=== PATIENT | male | born 1990 | race Caucasian/White ===

== ENCOUNTER 2016-07-02 21:12 | Inpatient (IN) | payer OTHER ==
[2016-07-02] MEDS ORDERED: ADENOSINE 6 MG/2 ML VIAL ONE ×2 (21:29→21:52)
--- NOTE | 2016-07-02 21:31 | EDPHY ---
H & P Time Seen by Provider: 07/02/16 21:29 HPI/ROS: CHIEF COMPLAINT: Palpitations, vomiting HISTORY OF PRESENT ILLNESS: Patient is a 25-year-old man who states that he began feeling nauseous and vomiting yesterday and then began having palpitations today. He states that he has vomited several times. He denies chest pain or shortness of breath. He is mildly diaphoretic. He has never had these symptoms before. He denies abdominal pain or diarrhea. He does admit to being an alcoholic but states that he quit about 2 weeks ago except for a few drinks he had on Saturday. REVIEW OF SYSTEMS: Constitutional: denies: chills, fever, recent illness, recent injury EENTM: denies: blurred vision, double vision, nose congestion Respiratory: denies: cough, shortness of breath Cardiac: See HPI Gastrointestinal/Abdominal: See HPI Genitourinary: denies: dysuria, frequency, hematuria, pain Musculoskeletal: denies: joint pain, muscle pain Skin: denies: lesions, rash, jaundice, bruising Neurological: denies: headache, numbness, paresthesia, tingling, dizziness, weakness Hematologic/Lymphatic: denies: blood clots, easy bleeding, easy bruising Immunologic/allergic: denies: HIV/AIDS, transplant EXAM: GENERAL: Anxious, mildly diaphoretic. HEAD: Atraumatic, normocephalic. EYES: Pupils equal round and reactive to light, extraocular movements intact, sclera anicteric, conjunctiva are normal. ENT: TMs normal, nares patent, oropharynx clear without exudates. Moist mucous membranes. NECK: Normal range of motion, supple without lymphadenopathy or JVD. LUNGS: Breath sounds clear to auscultation bilaterally and equal. No wheezes rales or rhonchi. HEART: Tachycardic rate of 230 ABDOMEN: Soft, nontender, normoactive bowel sounds. No guarding, no rebound. No masses appreciated. BACK: No CVA tenderness, no spinal tenderness, step-offs or deformities EXTREMITIES: Normal range of motion, no pitting or edema. No clubbing or cyanosis. NEUROLOGICAL: Cranial nerves II through XII grossly intact. Normal speech, normal gait. 5/5 strength, normal movement in all extremities, normal sensation PSYCH: Normal mood, normal affect. SKIN: Diaphoretic Source: Patient Exam Limitations: No limitations - Personal History Tetanus Vaccine Date: < 10 years - Medical/Surgical History Hx Asthma: No Hx Chronic Respiratory Disease: No Hx Diabetes: No Hx Cardiac Disease: No Hx Renal Disease: No Hx Cirrhosis: No Hx Alcoholism: No Hx HIV/AIDS: No Hx Splenectomy or Spleen Trauma: No Other PMH: Alcoholic, anxiety, bipolar - Family History Significant Family History: No pertinent family hx - Social History Smoking Status: Never smoked Alcohol Use: Sober Drug Use: None Constitutional: Initial Vital Signs Heart Rate 220 H 07/02/16 21:33 Respiratory Rate 24 H 07/02/16 21:33 Blood Pressure 138/72 H 07/02/16 21:33 O2 Sat (%) 95 07/02/16 21:33 O2 Delivery Mode Nasal Cannula O2 (L/minute) 2 Allergies/Adverse Reactions: No Known Allergies Allergy (Verified 07/02/16 23:00) Home Medications: Medication Instructions Recorded NK [No Known Home Meds] 07/02/16 Medical Decision Making - Diagnostics EKG Interpretation: An EKG obtained and was read and documented in trace view. Please see trace view for full reading and report. SVT An EKG obtained and was read and documented in trace view. Please see trace view for full reading and report. SVT converting to sinus rhythm An EKG obtained and was read and documented in trace view. Please see trace view for full reading and report. Sinus tachycardia rate of 161 no acute ischemic change An EKG obtained and was read and documented in trace view. Please see trace view for full reading and report. Ventricular tachycardia An EKG obtained and was read and documented in trace view. Please see trace view for full reading and report. Atrial fibrillation with a rate of 180 An EKG obtained and was read and documented in trace view. Please see trace view for full reading and report. Atrial fibrillation with a rate of 203 An EKG obtained and was read and documented in trace view. Please see trace view for full reading and report. Atrial flutter with a 2-1 block, rate of 150 An EKG obtained and was read and documented in trace view. Please see trace view for full reading and report. Sinus tachycardia with a rate of 140 ED Course/Re-evaluation: Patient initially presented diaphoretic and SVT with stable vital signs. He was given 6 of adenosine and converted into sinus rhythm with a rate of 130. This lasted for about 2 minutes until his rate gradually increased with sinus tachycardia. He then had about 10 seconds of wide complex ventricular tachycardia with stable vital signs and no change in mental status. We began to prepare amiodarone and placed a 2nd IV and fluid bolus. However by the time the it amiodarone was ready it was not given because he converted back to a narrow complex rhythm. He was in what appeared to be SVT versus atrial fibrillation with an RVR 180. Another dose of adenosine was given without success. He was then given a dose of diltiazem 10 mg which slowed his heart rate down to 160. He was given another dose of 10 mg diltiazem which slowed his heart rate down to 150 where he appears to be in a stable 2 to 1 a flutter pattern. He was then started on a diltiazem drip. I spoke with Dr. Kenneth Dowell who recommends a larger dose of diltiazem 17 mg for the boluses. I ended up giving him another 10 mg dose in addition to the drip that he currently is receiving. He suggested that if this is not sufficient to start him on metoprolol. Spoke with Dr. Argenis Lopez who agreed to admit to the PCU. Patient has also received total of 6 mg of Ativan. Differential Diagnosis: Partial list of the Differential diagnosis considered include but were not limited to; alcohol withdrawal, substance abuse, benzodiazepine withdrawal, stimulant use, atrial fibrillation, SVT, V-tach and although unlikely based on the history and physical exam, I also considered acute coronary disease, PE, gastroenteritis. Other Provider: Critical care time spent by me, Dr. Trevino exclusive with this patient was 45 minutes, exclusive of the PA time exclusive of procedures. The organ system that was at risk was cardiovascular and I gave IV fluids, critical medications, consultation and admission to prevent worsening of the patient's condition - Data Points Laboratory Results: Laboratory Results 07/02/16 21:52 07/02/16 21:52 Medications Given: Discontinued Medications Adenosine (Adenosine) 6 mg IVP EDNOW ONE Stop: 07/02/16 21:43 Last Admin: 07/02/16 21:42 Dose: 6 mg Adenosine (Adenosine) 12 mg IVP EDNOW ONE Stop: 07/02/16 22:18 Last Admin: 07/02/16 21:54 Dose: 12 mg Adenosine (Adenosine) 6 mg IVP EDNOW ONE Stop: 07/02/16 22:18 Last Admin: 07/02/16 21:50 Dose: 6 mg Dextrose (Dextrose 50% Syringe) 25 gm IVP PRN ONE Stop: 07/02/16 22:43 Last Admin: 07/02/16 22:49 Dose: 25 gm Diltiazem HCl (Cardizem 25 Mg/5 Ml Vial) 10 mg IVP EDNOW ONE Stop: 07/02/16 22:18 Last Admin: 07/02/16 22:00 Dose: 10 mg Diltiazem HCl 125 mg/ Dextrose 125 mls @ 0 mls/hr IV EDNOW ONE; As Directed PRN Reason: Protocol Stop: 07/02/16 22:18 Last Admin: 07/02/16 22:30 Dose: 125 mls Sodium Chloride (Ns) 1,000 mls @ 0 mls/hr IV ONCE ONE PRN Reason: Wide Open Stop: 07/02/16 22:18 Last Admin: 07/02/16 22:09 Dose: 1,000 mls Sodium Chloride (Ns) 1,000 mls @ 0 mls/hr IV ONCE ONE PRN Reason: Wide Open Stop: 07/02/16 21:56 Last Admin: 07/02/16 21:55 Dose: 1,000 mls Sodium Chloride (Ns) 1,000 mls @ 0 mls/hr IV ONCE ONE PRN Reason: Wide Open Stop: 07/02/16 21:41 Last Admin: 07/02/16 21:40 Dose: 1,000 mls Magnesium Sulfate (Magnesium Sulf 2 Gm (Premix)) 50 mls @ 50 mls/hr IV ONCE ONE Stop: 07/03/16 01:06 Last Admin: 07/03/16 00:47 Dose: 50 mls Magnesium Sulfate (Magnesium Sulf 2 Gm (Premix)) 50 mls @ 50 mls/hr IV ONCE ONE Stop: 07/03/16 01:06 Last Admin: 07/03/16 01:07 Dose: 50 mls Lorazepam (Ativan Injection) 2 mg IVP EDNOW ONE Stop: 07/02/16 21:44 Last Admin: 07/02/16 22:02 Dose: 2 mg Lorazepam (Ativan Injection) 2 mg IVP EDNOW ONE Stop: 07/02/16 22:48 Last Admin: 07/02/16 22:46 Dose: 2 mg Ondansetron HCl (Zofran) 8 mg IVP EDNOW ONE Stop: 07/02/16 21:44 Last Admin: 07/02/16 21:45 Dose: 8 mg Departure - Departure Disposition: [facility] Acute Clinical Impression: Atrial fibrillation and flutter, V tach Alcohol withdrawal Qualifiers: Complication of substance-induced condition: uncomplicated Qualified Code(s): F10.230 - Alcohol dependence with withdrawal, uncomplicated Condition: Critical
[2016-07-02] MEDS ORDERED: LORazepam 2 MG/ML INJ ONE (21:40)
[2016-07-02] MEDS ORDERED: NS 1,000 ML IV ONE ×3 (21:40→22:17)
[2016-07-02] MEDS ORDERED: ONDANSETRON 4 MG/2 ML VIAL ONE (21:41)
[2016-07-02] MEDS ORDERED: ADENOSINE 6 MG/2 ML VIAL IVP ONE ×2 (21:42→22:17)
[2016-07-02] MEDS ORDERED: LORazepam 2 MG/ML INJ IVP ONE ×2 (21:43→22:47)
[2016-07-02] MEDS ORDERED: ONDANSETRON 4 MG/2 ML VIAL IVP ONE (21:43)
[2016-07-02] MEDS ORDERED: AMIODARONE HCL 150 MG/3 ML VIAL ONE (21:44)
[2016-07-02] MEDS: ADENOSINE 6 MG/2 ML VIAL IVP ONE ×2 (21:50→21:54)
[2016-07-02] MEDS ORDERED: DILTIAZEM 25 MG/5 ML VIAL IVP ONE ×3 (21:58→22:17)
[2016-07-02] MEDS ORDERED: DILTIAZEM 125 MG/25 ML VIAL IV ONE (22:06)
[2016-07-02] MEDS ORDERED: DILTIAZEM 125 MG in D5W 125 ML IV ONE (22:17)
[2016-07-02 22:23] LABS: % IMMATURE GRANULYOCYTES 0.5 % (0.0-1.1); ABSOLUTE IMMATURE GRANULOCYTES 0.07 10^3/uL (0.00-0.10); ADD DIFF? NO; ADD MORPH? NO; ADD SCAN? NO; ATYPICAL LYMPHOCYTE FLAG 0 (0-99); FRAGMENT RBC FLAG 0 (0-99); LEFT SHIFT FLG 0 (0-99); LIPEMIA HEMOLYSIS FLAG 90 (0-99); MEAN CELL HEMOGLOBIN 33.5 pg (27.9-34.1); MEAN CELL HEMOGLOBIN CONCENTR. 34.7 g/dL (32.4-36.7); MEAN CELL VOLUME 96.5 fL (81.5-99.8); MEAN PLATELET VOLUME 12.4 fL (8.7-11.7); PLATELET CLUMPS FLAG 10 (0-99); PLATELET COUNT 174 10^3/uL (150-400); RED BLOOD CELL COUNT 5.08 10^6/uL (4.40-6.38); RED CELL DISTRIBUTION WIDTH 14.3 % (11.5-15.2)
[2016-07-02 22:29] LABS: INR 1.01 (0.83-1.16)
[2016-07-02 22:30] LABS: APTT 25.9 SEC (23.0-38.0)
[2016-07-02 22:39] LABS: ANION GAP 36 mEq/L (8-16); CALCIUM 9.8 mg/dL (8.5-10.4); CARBON DIOXIDE 10 mEq/l (22-31); CHLORIDE 93 mEq/L (97-110); CREATININE 0.9 mg/dL (0.7-1.3); GLOMERULAR FILTRATION RATE > 60; GLUCOSE 61 mg/dL (70-100); POTASSIUM 4.6 mEq/L (3.5-5.2); SODIUM 139 mEq/L (134-144)
[2016-07-02] MEDS ORDERED: D50W 25 GM/50 ML SYR IVP ONE ×2 (22:42→22:47)
[2016-07-02 22:48] LABS: MAGNESIUM 1.1 mg/dL (1.6-2.3)
--- NOTE | 2016-07-02 23:06 | CPEKG ---
Heart Rate: 220 RR Interval: 273 QRSD Interval: 134 QT Interval: 247 QTC Interval: 473 P Upperco: 0 QRS Upperco: 129 T Wave Upperco: 3 EKG Severity - ABNORMAL ECG - EKG Impression: WIDE COMPLEX TACHYCARDIA EKG Impression: VENTRICULAR PREMATURE COMPLEX EKG Impression: RBBB AND LPFB Electronically Signed By: José Antonio Trevino 03-Jul-2016 14:05:41
[2016-07-02] MEDS ORDERED: MAGNESIUM SULF 2 GM/WATER 50 ML BAG IV ONE (23:58)
[2016-07-03] MEDS ORDERED: ONDANSETRON DISINTEGRATING 4 MG TAB PO PRN (00:06)
[2016-07-03] MEDS ORDERED: ONDANSETRON 4 MG/2 ML VIAL IVP PRN (00:06)
[2016-07-03] MEDS ORDERED: ACETAMINOPHEN 325 MG TAB PO PRN (00:06)
[2016-07-03] MEDS ORDERED: MAGNESIUM SULF 2 GM/WATER 50 ML IV ONE ×2 (00:07)
[2016-07-03] MEDS ORDERED: LORazepam 1 MG TAB PO PRN (00:08)
[2016-07-03] MEDS ORDERED: PROTOCOL K PHOSPHATE 1 DOSE IV PRN (00:34)
[2016-07-03] MEDS ORDERED: PROTOCOL MAGNESIUM 1 DOSE IV PRN (00:34)
[2016-07-03] MEDS ORDERED: PROTOCOL POTASSIUM 1 DOSE MISC PRN (00:34)
[2016-07-03] MEDS ORDERED: NS 1,000 ML IV SCH (00:45)
[2016-07-03] MEDS: CEPACOL LOZENGE PO PRN ×2 (01:06→05:54)
[2016-07-03] MEDS: LORazepam 2 MG/ML INJ IVP PRN ×2 (01:06→02:20)
[2016-07-03] MEDS: chlordiazePOXIDE 25 MG CAP PO PRN ×2 (01:06→05:17)
--- NOTE | 2016-07-03 01:24 | GHP ---
[f rep st] HISTORY AND PHYSICAL DATE OF ADMISSION: 07/02/2016 CHIEF COMPLAINT: SVT, alcohol withdrawal. HISTORY OF PRESENT ILLNESS: Patient is a 25-year-old male with significant alcohol history who began feeling nauseated and vomiting yesterday that persisted today along with palpitations. He has had several episodes of nonbloody emesis, dizziness, and mild shortness of breath. No chest or abdominal pain, or diarrhea. Complains of a sore throat starting tonight, which he attributes to retching. No F/C/S. He drinks approximately 700 mL of hard liquor every 2-3 days. He says his last drink was 2 weeks ago except for he had a couple drinks on Saturday. Denies any drugs. He has never had withdrawal or seizure before. When presented to urgent care clinic, was found to be in SVT with a heart rate in the 230s that broke with 6mg adenosine. Then 10 seconds of VT to atrial fibrillation in 180s. Dosed with diltiazem [address] Trevino discussed case with Cardiology and no antiarrhythmic at this time. REVIEW OF SYSTEMS: I completed a 10-point review of systems, negative except as noted in HPI. PAST MEDICAL HISTORY: Alcohol. He has been drinking since the age of 20. PAST SURGICAL HISTORY: None. FAMILY HISTORY: Alcoholism. MEDICATIONS: No medications. SOCIAL HISTORY: Lives in [place], is not in school and does not work. Drinks 700 mL of hard liquor every 2-3 days, last being 2 weeks ago. Occasional marijuana. No tobacco. ALLERGIES: No known drug allergies. PHYSICAL EXAMINATION: VITAL SIGNS: Temperature 100.8, blood pressure 137/67, heart rate in 120s, respirations 18, 97% on room air. GENERAL: mildly unkept, sitting up in bed, mildly tremulous, in no acute distress. HEENT: PERRLA. EOMI. Dry mucous membranes. Oropharynx with mild erythema. Tonsils: No exudate. CV: Tachy, regular. No murmurs, gallops, or rubs. LUNGS: Clear to auscultation bilaterally. ABDOMEN: Soft, nontender, nondistended. Positive bowel sounds. : No suprapubic or CVA tenderness. MUSCULOSKELETAL: Five out of 5 upper and lower extremity strength. SKIN: Warm, dry. NEURO: Two through 12 intact. Tremulousness. Positive tongue fasciculations. PSYCH: Alert and oriented x3. LABS: WBCs 14, hemoglobin 17, hematocrit 49, platelets 174. Coags within normal. Sodium 139, potassium 4.6, chloride 96, carbon dioxide 10. Anion gap is 36. Glucose is 61. Magnesium is 1.1. TSH is 1.6. Calcium 9.8. Phosphorus is pending. EKG personally reviewed by me. SVT, heart rate 220. ASSESSMENT AND PLAN: 1. Supraventricular tachycardia/atrial fibrillation: trigger likely alcohol withdrawal, dehydration and electrolyte abnormalities. Patient was dosed adenosine initially at urgent care. Continue diltiazem drip along with tx of withdrawal. IV fluids. Check Utox 2. Alcohol withdrawal: CIWA. Ativan and Librium. 3. Hypomagnesium: Aggressive repletion. Check phosphorus. 4. Anion gap metabolic acidosis: due to alcohol & starvation ketoacidosis. Check Utox, ASA, APAP, lactate. Treat aggressively with IV fluids. 5. Fever: Differential includes infection versus alcohol withdrawal. Does complain of a mild sore throat. Strep cx, UA, CXR and blood cxs 6. Alcohol dependence: started drinking at age 20. He has an extensive family history. He has tried quitting on his own in the past and wants help. Social work evaluate patient in the morning. 7. Leukocytosis: Suspect stress inflammation, but will evaluate with UAs, chest x-ray, and rapid strep. 8. Hypoglycemia: Secondary to emesis, dehydration, and poor oral intake. Repeating now will be p.r.n. D50. May have clears. 9. Diet: Clears. Advance as tolerated. 10. Deep venous thrombosis prophylaxis. Lovenox DISPOSITION: Patient warrants inpatient ICU admission given tachyarrhythmia, high risk. Also treating for alcohol withdrawal. Critical care time spent: 60 min spent bedside examining/interviewing patient and reviewing EKG, labs, counseling him on Etoh cessation. /[id number]/MODL MTDD
[2016-07-03] MEDS ORDERED: DILTIAZEM 125 MG in D5W 125 ML IV SCH (01:30)
[2016-07-03 01:53] LABS: COLOR YELLOW; LEUKOCYTE ESTERASE,URINE NEGATIVE (NEGATIVE); NITRITE,URINE NEGATIVE (NEGATIVE)
[2016-07-03 02:04] LABS: MUCUS TRACE /lpf (NONE-1+)
[2016-07-03 02:20] LABS: PHENCYCLIDINE URINE BCH < 6 ng/ml (NEGATIVE); PHENCYCLIDINE URINE BCH NEGATIVE (NEGATIVE)
[2016-07-03 02:30] LABS: TETRAHYDROCANNABINOL URINE 349 ng/mL (NEGATIVE)
[2016-07-03] MEDS ORDERED: THIAMINE HCL 100 MG TAB PO SCH (05:45)
[2016-07-03] MEDS ORDERED: MULTIVITAMINS 1 EACH TAB PO SCH ×2 (05:45→09:00)
[2016-07-03] MEDS ORDERED: FOLIC ACID 1 MG TAB PO SCH ×2 (05:45→09:00)
[2016-07-03 06:29] LABS: ALANINE AMINOTRANSFERASE 129 IU/L (21-72); ALBUMIN 3.9 g/dL (3.5-5.0); ALKALINE PHOSPHATASE 45 IU/L (38-126); ANION GAP 11 mEq/L (8-16); ASPARTATE AMINOTRANSFERASE 181 IU/L (17-59); BILIRUBIN,TOTAL 1.4 mg/dL (0.1-1.4); CALCIUM 8.1 mg/dL (8.5-10.4); CARBON DIOXIDE 23 mEq/l (22-31); CHLORIDE 102 mEq/L (97-110); CREATININE 0.7 mg/dL (0.7-1.3); GLOMERULAR FILTRATION RATE > 60; GLUCOSE 75 mg/dL (70-100); POTASSIUM 4.3 mEq/L (3.5-5.2); SALICYLATE < 1.0 mg/dL (2.0-20.0); SODIUM 136 mEq/L (134-144); TOTAL PROTEIN 6.1 g/dL (6.3-8.2)
[2016-07-03 06:35] LABS: % IMMATURE GRANULYOCYTES 0.3 % (0.0-1.1); ABSOLUTE IMMATURE GRANULOCYTES 0.03 10^3/uL (0.00-0.10); ADD DIFF? NO; ADD MORPH? NO; ADD SCAN? NO; ATYPICAL LYMPHOCYTE FLAG 0 (0-99); FRAGMENT RBC FLAG 0 (0-99); HEMATOCRIT 41.2 % (40.0-51.0); HEMOGLOBIN 14.3 g/dL (13.7-17.5); LEFT SHIFT FLG 0 (0-99); LIPEMIA HEMOLYSIS FLAG 90 (0-99); MEAN CELL HEMOGLOBIN 33.3 pg (27.9-34.1); MEAN CELL HEMOGLOBIN CONCENTR. 34.7 g/dL (32.4-36.7); MEAN CELL VOLUME 95.8 fL (81.5-99.8); MEAN PLATELET VOLUME 12.1 fL (8.7-11.7); PLATELET CLUMPS FLAG 0 (0-99); PLATELET COUNT 115 10^3/uL (150-400); RED CELL DISTRIBUTION WIDTH 14.4 % (11.5-15.2)
[2016-07-03 07:16] LABS: MAGNESIUM 2.3 mg/dL (1.6-2.3)
--- NOTE | 2016-07-03 08:49 | CPEKG ---
Heart Rate: 97 RR Interval: 619 P-R Interval: 160 QRSD Interval: 84 QT Interval: 332 QTC Interval: 422 P Gould: 65 QRS Gould: 85 T Wave Gould: 38 EKG Severity - NORMAL ECG - EKG Impression: SINUS RHYTHM EKG Impression: ST ELEV, PROBABLE NORMAL EARLY REPOL PATTERN EKG Impression: COMPARED WITH 07/02/2016 AT 10:30 P.M., HEART RATES LOWER Electronically Signed By: Keely Wu 03-Jul-2016 09:42:38
[2016-07-03] MEDS ORDERED: ENOXAPARIN 40 MG/0.4 ML SYR SC SCH (09:00)
[2016-07-03] MEDS ORDERED: PANTOPRAZOLE SODIUM 40 MG TAB PO SCH (09:00)
--- NOTE | 2016-07-03 10:32 | CPEKG ---
Heart Rate: 204 RR Interval: 294 P-R Interval: 156 QRSD Interval: 88 QT Interval: 268 QTC Interval: 494 P Wadley: 0 QRS Wadley: 116 T Wave Wadley: -26 EKG Severity - ABNORMAL ECG - EKG Impression: SUPRAVENTRICULAR TACHYCARDIA EKG Impression: RUN OF VENTRICULAR PREMATURE COMPLEXES EKG Impression: LEFT POSTERIOR FASCICULAR BLOCK EKG Impression: REPOLARIZATION ABNORMALITY, PROB RATE RELATED EKG Impression: TALL T WAVES, PROBABLY NORMAL VARIANT Electronically Signed By: José Antonio Trevino 03-Jul-2016 14:04:47
--- NOTE | 2016-07-03 12:03 | ECHO ---
[id number] + + [id number] : : [place] [address] : : [phone] + + Adult Echocardiographic Report + ----+ :Name: CARLOS HAY LStudy Date: 07/03/2016 09:45 AM BP: 130/70 mmHg : : Hospital Admission Number: [id number] Location: 240: :: 1990 Gender: Male Height: 73 in : :Age: 25 yrs Race: WH Weight: 175 lb : :Reason For Study: new afib : : BSA: 2.0 meters2 : :History: new afib : + ----+ MMode/2D Measurements \T\ Calculations IVSd: 0.71 cm RVDd: 2.7 cm FS: 29.0 % Ao root diam: LVPWd: 0.91 cm LVIDd: 4.9 cm EDV(Teich): 3.1 cm LVIDs: 3.4 cm 110.3 ml ESV(Teich): 48.9 ml EF(Teich): 55.7 % LVLd ap4: 10.0 cm SV(MOD-sp4): EDV(MOD-sp4): 97.0 ml 162.0 ml LVLs ap4: 8.0 cm ESV(MOD-sp4): 65.0 ml EF(MOD-sp4): 59.9 % Normal Measurement Values: + + :LVIDd (3.5-5.7cm) IVSd (0.6-1.1cm) LVPWd (0.6-1.1cm) Aortic Root (2.0-3.7cm)Left Atrium (1.5-4.0cm): :LV Vol(d) (76-115ml) LV Vol(s) (29-48ml) Ejec Fraction (50-65%)PV Kings (0.6- 1.2m/s) TV Kings (0.4-1.0m/s) : :MV E Kings (0.8-1.0m/s)MV A Kings (0.3-1.0m/s)LVOT Kings (0.7-1.2m/s) Asc Ao Kings ( 0.9-1.8m/s) : + + Doppler Measurements \T\ Calculations MV E max kings: Ao V2 max: LV V1 max: PA V2 max: 67.1 cm/sec 124.3 cm/sec 102.7 cm/sec 96.4 cm/sec MV A max kings: Ao max P.2 mmHgLV V1 max PG: PA max P.3 cm/sec 4.2 mmHg 3.7 mmHg MV E/A: 1.2 Left Ventricle The left ventricle is normal in size. There is normal left ventricular wall thickness. Ejection Fraction = 55%. Right Ventricle The right ventricle is normal in size and function. Atria The left atrial size is normal. Right atrial size is normal. Mitral Valve The mitral valve is normal in structure and function. There is no mitral valve stenosis. There is no mitral regurgitation noted. Tricuspid Valve The tricuspid valve is normal in structure and function. There is no tricuspid stenosis. There is trace tricuspid regurgitation. Aortic Valve The aortic valve is not well visualized. There is no aortic stenosis. There is no aortic insufficiency. Pulmonic Valve The pulmonic valve is normal in structure and function. Great Vessels The aortic root is normal size. Conclusion A two-dimensional transthoracic echocardiogram with M-mode and Doppler was performed. 1. The left ventricle is normal in size. There is normal left ventricular wall thickness. The Ejection Fraction = 55%. 2. The mitral valve is normal in structure and function. There is no mitral regurgitation noted. 3. The aortic valve is not well visualized. 4. There is no aortic stenosis. There is no aortic insufficiency. Final Reading Physician: Dell Mendoza MD electronically signed on 07/03/2016 12:01 PM Ordering Physician: Dell Goodman Performed By: Alina Antony
[2016-07-03 12:28] VITALS: BP 132/78; PULSE 100; RESP 24; TEMP 98.6; O2SAT 93
[2016-07-03] MEDS ORDERED: DILTIAZEM CD 120 MG CAP PO SCH (15:30)
--- NOTE | 2016-07-03 17:51 | GCON ---
[f rep st] CONSULTATION DATE OF CONSULTATION: 07/03/2016 CHIEF COMPLAINT: We have been asked by Dr. Mercado to evaluate this patient with a supraventricular tachycardia. HISTORY OF PRESENT ILLNESS: The patient is a 25-year-old gentleman with limited past medical histor y, who presented to the emergency department on 07/02/2016 with symptoms of palpitations in the sett ing of alcohol withdrawal. The patient was noted to have a wide-complex tachycardia suggestive of S VT with aberrancy. He was treated with adenosine, with conversion back to a normal sinus rhythm. H ana maria was started on diltiazem at that time and has maintained a normal sinus rhythm. We have been cons ulted to help in the further management of this patient. Patient does have a previous history of al cohol use/abuse. Patient would typically consume 700 mL of hard alcohol every 2-3 days. Approximat tanvir 2 weeks ago he decided to quit with the help of his girlfriend. He is planning on joining the [employer] and getting in better shape. On the day of admission, patient noted the onset of palpitations d escribed as a rapid beating of his heart. He denies symptoms of chest pain, syncope, or presyncope with the palpitations. Patient does report a previous history of palpitations; these are typically self limited. PAST MEDICAL HISTORY: 1. Alcohol use/abuse. 2. Palpitations. MEDICATIONS: None. ALLERGIES: No known drug allergies. SOCIAL HISTORY: Patient lives in [place]. He drinks approximately 700 mL of hard liquor every 2-3 days. He does smoke marijuana. He denies tobacco and illicit drug use. FAMILY HISTORY: Notable for alcohol use/abuse. REVIEW OF SYSTEMS: A 10-point review of systems is negative, except as noted in HPI. Patient does, however, report symptoms of nausea and vomiting during the days prior to admission. PHYSICAL EXAMINATION: GENERAL: Patient is resting in bed. He seems mildly agitated. VITALS: Tem perature is afebrile, pulse is 100, blood pressure 132/78, respiratory rate is 24, SaO2 is 93% on ro om air. HEENT: Normocephalic atraumatic. Extraocular muscles intact. NECK: No JVD. No bruits. LUNGS: Clear to auscultation bilaterally. CARDIOVASCULAR: Regular rate and rhythm. S1, S2. No murmurs, rubs, or gallops appreciated. ABDOMEN: Soft, nontender, with hyperactive bowel sounds. E XTREMITIES: No clubbing, cyanosis, or edema. SKIN: No evidence of rashes. NEURO: Awake, alert, and oriented x3. He is somewhat agitated with mild. LABORATORY: White blood cell count 9.62, hemoglobin 14.3, hematocrit 41.2, platelet count 115. Sod ium 136, potassium 4.3, chloride 102, BUN 9, creatinine 0.7. AST is elevated at 181, ALT is elevate d at 129. TSH 1.61. EKG #1 demonstrates a wide-complex tachycardia transitioning to a narrow complex tachycardia and end ing with a P wave and sinus rhythm. The EKG is suggestive of an SVT with aberrancy. EKG in normal sinus rhythm demonstrates no evidence of aberrant conduction. Echocardiogram demonstrates normal le ft ventricular size and systolic function with no significant valvular abnormalities. ASSESSMENT AND PLAN: This patient is a 25-year-old gentleman who presents with supraventricular tac hycardia in the setting of alcohol withdrawal. He has subsequently converted to a normal sinus rhyt hm following adenosine infusion. Patient does report a previous history of self-limited palpitation s but denies syncope or pre-syncope. At this time, would initiate therapy with diltiazem to slow hi s heart rate and reduce atrial ectopy and hopefully decrease the likelihood of recurrent supraventri cular tachycardia. Beta ajay could also be used; however, would avoid this given his current alc ohol withdrawal and potential masking of his withdrawal symptoms. Would have patient follow up with Dr. Gonzales as an outpatient to discuss potential for ablation. /[id number]/MODL
--- NOTE | 2016-07-03 18:40 | PDDCSUM ---
Discharge Summary Discharge Summary: DISCHARGE SUMMARY FOLLOW-UP ITEMS: Outpatient follow-up at [facility], consider outpatient event monitor DATE OF ADMISSION: 07/02/16 DATE OF DISCHARGE: 07/03/2016 DISCHARGE DIAGNOSES: 1. Acute supraventricular tachycardia 2. Acute atrial fibrillation 3. Acute alcohol withdrawal 4. Acute transaminitis 5. Acute metabolic lactic acidosis 6. Systemic inflammatory response syndrome CONSULTATIONS: Cardiology PROCEDURES / IMAGING: Echocardiogram demonstrating normal ejection fraction CHIEF COMPLAINT: Agitation, palpitations, tremulousness SUBJECTIVE: Patient reports he is feeling well at time of discharge and he is requesting that he be discharged home at this time PHYSICAL EXAM ON DISCHARGE: Systolic blood pressure is 120, heart rate 90, afebrile overnight, find tremulousness bilateral lower extremities, alert awake oriented x3, pupils mildly dilated, bowel sounds are present abdomen is soft nontender, no asterixis LABS ON DISCHARGE: Serum bicarbonate level 23, AST 180, ALT 130, alk-phos 45, total bilirubin 1.4, white blood cell count 9600, hemoglobin 14.3 HOSPITAL COURSE BY PROBLEM: 1. Acute supraventricular tachycardia. Patient presented with a heart rate of around 220 which was notably SVT on EKG and broke into a wide complex then narrow complex tachycardia after 6 mg of adenosine. It is suspected that his supraventricular tachycardia was secondary to acute alcohol withdrawal and the patient reports that he has previously experienced palpitations which may also have been symptomatic SVT. I suspect that these episodes of SVT are in the setting of alcohol withdrawal given the patient frequently experiences binges and then some withdrawal symptoms thereafter. He did not have any evidence of structural heart disease on echocardiogram and Dr. Mendoza recommended low-dose diltiazem as well as outpatient follow up with Dr. Gonzales. 2. Acute atrial fibrillation. Patient did go into an atrial fibrillation rhythm after he received adenosine and then he was placed on a diltiazem drip and admitted to the step-down unit. He chemically converted to a normal sinus mechanism and remained in sinus mechanism throughout the remainder of his stay. As noted above his echocardiogram did not demonstrate any structural abnormalities and he will remain on wang blocking agent until his follow up with Dr. Gonzales. He may have an event monitor placed at that time to determine whether he has any ongoing SVT or AFib burden. 3. Acute alcohol withdrawal. Is suspected that his acute alcohol withdrawal was the precipitating factor of the above. His withdrawal symptoms or evidenced by tremulousness, tachycardia, agitation and he was given a combination of Librium and Ativan with good effect. Although the patient continued to score on CIWA and Joshua indications for ongoing inpatient care, he is girlfriend requested discharge and he appears to be safe to do so with careful dosing of Librium at home. I recommended a 4th dose of 25 mg Librium this evening, then rapid taper with 3 doses tomorrow, 2 doses the day thereafter , 1 dose today thereafter, monitoring of dosing by his girlfriend. He should then follow up with his primary care provider for further guidance. He should remain sober from alcohol. He was seen by our socially responsible investment adviser prior to discharge and given contact information for [facility] so that he can address his underlying mental health issues which seemed to influence his drinking. 4. Acute transaminitis. Most likely secondary to alcohol use, should have outpatient liver panel drawn by primary care provider. 5. Acute metabolic acidosis. Secondary to lactic acid, peaked at 4.5, most likely secondary to hypo hypovolemia as well as starvation ketoacidosis. He received IV fluids and this resolved. 6. Systemic inflammatory response syndrome. Evidenced by tachycardia and leukocytosis without clear evidence of infection, this improved with IV fluids and control of his acute alcohol withdrawal syndrome as well as lactic acidosis which were most likely driving factors. DISCHARGE MEDICATIONS: Please see official discharge medication reconciliation sheet in chart , Librium 25 mg 3 times daily with taper, as-needed Phenergan at home, diltiazem continuous release 120 mg daily. DISCHARGE INSTRUCTIONS: Patient should follow up with his primary care provider in the short term, Dr. Gonzales next week. TIME SPENT: Greater than 30 minutes were spent on direct patient care, as well as discharge planning and preparation.
--- NOTE | 2016-07-06 08:17 | CPEKG ---
Heart Rate: 230 RR Interval: 261 P-R Interval: 120 QRSD Interval: 124 QT Interval: 248 QTC Interval: 485 P [place]: 264 QRS [place]: 76 T Wave [place]: 267 EKG Severity - ABNORMAL ECG - EKG Impression: WIDE COMPLEX TACHYCARDIA. CONSIDER VT VS ABERRATED SVT EKG Impression: COMPARED WITH 02 JUL 2016 AT 21:39, WCT NOW PRESENT Electronically Signed By: Keely Wu 06-Jul-2016 13:40:44
--- NOTE | 2016-07-06 08:22 | CPEKG ---
Heart Rate: 161 RR Interval: 373 P-R Interval: 72 QRSD Interval: 84 QT Interval: 260 QTC Interval: 426 P [place]: 0 QRS [place]: 116 T Wave [place]: -9 EKG Severity - ABNORMAL ECG - EKG Impression: SINUS TACHYCARDIA EKG Impression: LEFT POSTERIOR FASCICULAR BLOCK EKG Impression: INFERIOR Q WAVES, PROBABLY NORMAL VARIATION EKG Impression: ANTERIOR ST ELEVATION, PROBABLY DUE TO LVH EKG Impression: COMPARED WITH 02 JUL 2016 AT 21:38, SINUS TACHYCARDIA NOW PRESENT Electronically Signed By: Keely Wu 06-Jul-2016 13:43:09
--- NOTE | 2016-07-06 08:25 | CPEKG ---
Heart Rate: 143 RR Interval: 420 P-R Interval: 112 QRSD Interval: 84 QT Interval: 276 QTC Interval: 426 P [place]: 0 QRS [place]: 103 T Wave [place]: -2 EKG Severity - BORDERLINE ECG - EKG Impression: SINUS TACHYCARDIA EKG Impression: SMALL INFERIOR Q WAVES; S1, Q III, TIII PATTERN EKG Impression: BORDERLINE RIGHT AXIS DEVIATION EKG Impression: BORDERLINE ST ELEVATION, ANTERIOR LEADS EKG Impression: TALL T WAVES, CONSIDER ISCHEMIA OR METABOLIC ABNORMALITY EKG Impression: COMPARED WITH 02 JUL 2016 AT 22:04, NO SIGNIFICANT CHANGE Electronically Signed By: Keely Wu 06-Jul-2016 13:35:40
--- NOTE | 2016-07-06 08:26 | CPEKG ---
Heart Rate: 179 RR Interval: 335 QRSD Interval: 82 QT Interval: 256 QTC Interval: 442 QRS [place]: 96 T Wave [place]: -12 EKG Severity - ABNORMAL ECG - EKG Impression: ATRIAL FLUTTER, A-RATE 272 EKG Impression: VENTRICULAR PREMATURE COMPLEX EKG Impression: BORDERLINE RIGHT AXIS DEVIATION EKG Impression: NONSPECIFIC T ABNORMALITIES, INFERIOR LEADS EKG Impression: TALL T WAVES, CONSIDER ISCHEMIA OR METABOLIC ABNL EKG Impression: COMPARED WITH June AT 21:43, QRS NOW NARROW Electronically Signed By: Keely Wu 06-Jul-2016 13:39:14
--- NOTE | 2016-07-06 08:28 | CPEKG ---
Heart Rate: 203 RR Interval: 296 QRSD Interval: 82 QT Interval: 268 QTC Interval: 493 QRS [place]: 98 T Wave [place]: 10 EKG Severity - ABNORMAL ECG - EKG Impression: ATRIAL FIBRILLATION WITH RAPID V-RATE EKG Impression: BORDERLINE RIGHT AXIS DEVIATION EKG Impression: BORDERLINE T ABNORMALITIES, INFERIOR LEADS EKG Impression: TALL T WAVES, CONSIDER METABOLIC ABNORMALITY OR ISCHEMIA EKG Impression: NO SIG CHANGE COMPARED WITH 02 JUL 2016 AT 21:49 Electronically Signed By: Keely Wu 06-Jul-2016 13:38:02
--- NOTE | 2016-07-06 08:28 | CPEKG ---
Heart Rate: 150 RR Interval: 400 P-R Interval: 63 QRSD Interval: 82 QT Interval: 276 QTC Interval: 436 P [place]: 0 QRS [place]: 113 T Wave [place]: 20 EKG Severity - ABNORMAL ECG - EKG Impression: SINUS TACHYCARDIA EKG Impression: ATRIAL PREMATURE COMPLEX EKG Impression: LEFT POSTERIOR FASCICULAR BLOCK EKG Impression: INFERIOR Q WAVES, PROBABLY NORMAL VARIATION EKG Impression: ANTERIOR ST ELEVATION, ABNORMAL T WAVES EKG Impression: COMPARED WITH 02 JUL 2016 AT 21:51, SINUS TACHYCARDIA NOW PRESENT Electronically Signed By: Keely Wu 06-Jul-2016 13:37:01
[2016-07-06] MEDS ORDERED: THIAMINE HCL 100 MG TAB PO SCH (09:00)
== END 2016-07-03 15:47 | disposition home or self-care (01) | DRG 309 ==
LOC: CED 21:12 → CEDHOLD 22:36 → OBSVTOIN 22:36 → F2N 07-03 00:10
PROVIDERS: ADMIT Hospitalist; ATTEND Internal Medicine
DX: I47.1 Supraventricular tachycardia (principal); F10.239 Alcohol dependence with withdrawal, unspecified; I48.91 Unspecified atrial fibrillation; R74.0 Nonspecific elevation of levels of transaminase and lactic acid dehydrogenase [LDH]; E87.2 Acidosis
CPT/HCPCS: 80048-PO; 80053-PO; 80307; 82947-QW; 83735-PO; 84100-PO; 84443-PO; 85025-PO; 85610-PO; 85730-PO; 96365; 96366; G0480; J0153; J0282; J1650; J2060; J2405

== ENCOUNTER 2016-07-15 15:12 | Emergency (ER) | payer OTHER ==
[2016-07-15 15:16] VITALS: RESP 16
--- NOTE | 2016-07-15 15:26 | CPEKG ---
Heart Rate: 114 RR Interval: 526 P-R Interval: 120 QRSD Interval: 90 QT Interval: 324 QTC Interval: 447 P [place]: 0 QRS [place]: 91 T Wave [place]: 48 EKG Severity - BORDERLINE ECG - EKG Impression: SINUS TACHYCARDIA EKG Impression: VENTRICULAR PREMATURE COMPLEX EKG Impression: BORDERLINE RIGHT AXIS DEVIATION EKG Impression: INFERIOR Q WAVES, PROBABLY NORMAL VARIATION Electronically Signed By: Macario Douglass 15-Jul-2016 18:46:49
[2016-07-15] MEDS ORDERED: ONDANSETRON 4 MG/2 ML VIAL ONE (15:29)
[2016-07-15] MEDS ORDERED: ONDANSETRON 4 MG/2 ML VIAL IVP ONE (15:34)
[2016-07-15] MEDS ORDERED: NS 1,000 ML IV ONE (15:34)
[2016-07-15 15:38] LABS: % IMMATURE GRANULYOCYTES 0.9 % (0.0-1.1); ABSOLUTE IMMATURE GRANULOCYTES 0.09 10^3/uL (0.00-0.10); ADD DIFF? NO; ADD MORPH? NO; ADD SCAN? NO; ATYPICAL LYMPHOCYTE FLAG 0 (0-99); FRAGMENT RBC FLAG 0 (0-99); HEMATOCRIT 46.9 % (40.0-51.0); LEFT SHIFT FLG 10 (0-99); LIPEMIA HEMOLYSIS FLAG 90 (0-99); MEAN CELL HEMOGLOBIN 33.9 pg (27.9-34.1); MEAN CELL HEMOGLOBIN CONCENTR. 34.1 g/dL (32.4-36.7); MEAN CELL VOLUME 99.4 fL (81.5-99.8); MEAN PLATELET VOLUME 11.2 fL (8.7-11.7); PLATELET CLUMPS FLAG 0 (0-99); PLATELET COUNT 265 10^3/uL (150-400); RED BLOOD CELL COUNT 4.72 10^6/uL (4.40-6.38); RED CELL DISTRIBUTION WIDTH 14.6 % (11.5-15.2)
--- NOTE | 2016-07-15 15:43 | EDPHY ---
H & P Stated Complaint: HX of SVT sceduled ablation w/ dr gonzales Time Seen by Provider: 07/15/16 15:20 HPI/ROS: CHIEF COMPLAINT: Nausea vomiting heart racing HISTORY OF PRESENT ILLNESS: this is a 25-year-old male presenting to the emergency department complaining of nausea vomiting onset today with intermittent episodes of heart palpitations x3 days. patient was admitted here on 07/02 with alcohol withdraw and new onset SVT discharged with diltiazem, patient states he stopped taking the diltiazem due to rash and nausea with the medication he also spoke with surface grinder Dr. Gonzales he is aware the discontinuation of diltiazem. patient stated he did take 1 diltiazem this morning in attempts to decrease the heart palpitations not sure if this may have caused increase in nausea vomiting. patient also reports 3 days ago he was running around his girlfriend he did slip and fall landing on the dresser hitting his chest and since then he has had intermittent shortness of breath along with the heart palpitations. patient also reports last drink was 3 weeks ago when he was diagnosed with SVT. denies any other complaints REVIEW OF SYSTEMS: Constitutional: No fever, no chills. Eyes: No discharge. no blurred vision ENT: No sore throat. Cardiovascular: right upper rib chest pain. palpitations. Respiratory: No cough. shortness of breath. Gastrointestinal: No abdominal pain. nausea vomiting Genitourinary: No hematuria. Musculoskeletal: No back pain. Skin: No rashes. Neurological: No headache. Source: Patient, Family - Personal History Current Tetanus/Diphtheria Vaccine: Yes Current Tetanus Diphtheria and Acellular Pertussis (TDAP): Yes Tetanus Vaccine Date: < 10 years - Medical/Surgical History Hx Asthma: No Hx Chronic Respiratory Disease: No Hx Diabetes: No Hx Cardiac Disease: No Hx Renal Disease: No Hx Cirrhosis: No Hx Alcoholism: No Hx HIV/AIDS: No Hx Splenectomy or Spleen Trauma: No Other PMH: Alcoholic, anxiety, bipolar - Social History Smoking Status: Never smoked - Physical Exam Exam: General Appearance: Alert, no distress. Eyes: Pupils equal and round no pallor or injection. ENT, Mouth: Mucous membranes moist. Respiratory: There are no retractions, lungs are clear to auscultation. Cardiovascular: tachycardic Gastrointestinal: Abdomen is soft and nontender, no masses, bowel sounds normal. active vomiting Neurological: no focal deficits Skin: Pallor, diaphoretic Musculoskeletal: Neck is supple nontender. right upper anterior chest tenderness on palpation, no crepitus. ecchymosis noted Extremities: symmetrical, full range of motion. Psychiatric: Patient is oriented X 3, there is no agitation. Constitutional: Initial Vital Signs Temperature (C) 36.4 C 07/15/16 15:14 Heart Rate 110 H 07/15/16 15:14 Respiratory Rate 16 07/15/16 15:14 Blood Pressure 136/84 H 07/15/16 15:14 O2 Sat (%) 95 07/15/16 15:14 O2 Delivery Mode Room Air Allergies/Adverse Reactions: No Known Allergies Allergy (Verified 07/02/16 23:00) Home Medications: Medication Instructions Recorded Diltiazem Cd [Cardizem ER 120 MG 120 mg PO DAILY #30 cap 07/03/16 (*)] chlordiazePOXIDE [Librium 25 mg 25 mg PO TID #7 cap 07/03/16 (*)] Medical Decision Making - Diagnostics Imaging Results: Imaging Impressions Chest X-Ray 07/15/16 15:35 Impression: No source for right-sided chest pain identified. ED Course/Re-evaluation: discussed ED plan of care: CBC, BMP, troponin, EKG, chest x-ray, IV fluids normal saline bolus IV Zofran 1630: Re-evaluation---> patient feeling better no pallor heart rate 95, nonlabored respiratory effort no active vomiting denies any nausea, no chest pain or palpitations 1700: discharge home---> stable, discussed discharge instructions follow up with your primary care provider this week follow-up with Dr. Gonzales this week Differential Diagnosis: other differential diagnosis considered but not limited to SVT, rib Fracture, and pneumothorax - Data Points Laboratory Results: Laboratory Results 07/15/16 15:30 07/15/16 15:30 07/15/16 07/15/16 15:30 15:30 WBC 9.65 10^3/uL H 10^3/uL (3.80-9.50) RBC 4.72 10^6/uL 10^6/uL (4.40-6.38) Hgb 16.0 g/dL g/dL (13.7-17.5) Hct 46.9 % % (40.0-51.0) MCV 99.4 fL fL (81.5-99.8) MCH 33.9 pg pg (27.9-34.1) MCHC 34.1 g/dL g/dL (32.4-36.7) RDW 14.6 % % (11.5-15.2) Plt Count 265 10^3/uL 10^3/uL (150-400) MPV 11.2 fL fL (8.7-11.7) Neut % (Auto) 66.6 % % (39.3-74.2) Lymph % (Auto) 21.7 % % (15.0-45.0) Mitchell % (Auto) 8.2 % % (4.5-13.0) Eos % (Auto) 0.0 % L % (0.6-7.6) Baso % (Auto) 2.6 % H % (0.3-1.7) Nucleat RBC Rel Count 0.0 % % (0.0-0.2) Absolute Neuts (auto) 6.43 10^3/uL 10^3/uL (1.70-6.50) Absolute Lymphs (auto) 2.09 10^3/uL 10^3/uL (1.00-3.00) Absolute Monos (auto) 0.79 10^3/uL 10^3/uL (0.30-0.80) Absolute Eos (auto) 0.00 10^3/uL L 10^3/uL (0.03-0.40) Absolute Basos (auto) 0.25 10^3/uL H 10^3/uL (0.02-0.10) Absolute Nucleated RBC 0.00 10^3/uL 10^3/uL (0-0.01) Immature Gran % 0.9 % % (0.0-1.1) Immature Gran # 0.09 10^3/uL 10^3/uL (0.00-0.10) Sodium 141 mEq/L mEq/L (134-144) Potassium 3.9 mEq/L mEq/L (3.5-5.2) Chloride 102 mEq/L mEq/L (97-110) Carbon Dioxide 10 mEq/l L mEq/l (22-31) Anion Gap 29 mEq/L H mEq/L (8-16) BUN 10 mg/dL mg/dL (7-23) Creatinine 0.8 mg/dL mg/dL (0.7-1.3) Estimated GFR > 60 Glucose 57 mg/dL L mg/dL (70-100) Calcium 9.4 mg/dL mg/dL (8.5-10.4) Troponin I < 0.012 ng/mL ng/mL (0-0.034) Medications Given: Discontinued Medications Sodium Chloride (Ns) 1,000 mls @ 0 mls/hr IV ONCE ONE PRN Reason: Wide Open Stop: 07/15/16 15:35 Last Admin: 07/15/16 15:34 Dose: 1,000 mls Ondansetron HCl (Zofran) 4 mg IVP EDNOW ONE Stop: 07/15/16 15:35 Last Admin: 07/15/16 15:35 Dose: 4 mg Departure - Departure Disposition: Home, Routine, Self-Care Clinical Impression: Heart palpitations Nausea & vomiting Qualifiers: Vomiting type: unspecified Vomiting Intractability: non-intractable Qualified Code(s): R11.2 - Nausea with vomiting, unspecified Condition: Good Instructions: Acute Nausea and Vomiting (ED) Additional Instructions: Discussed discharge instructions 1. follow up with your primary care provider this week. I would also recommend following with Dr. Gonzales 2. increase fluid. Referrals: Joo Watson, [Primary Care Provider] - As per Instructions
[2016-07-15 15:47] LABS: ANION GAP 29 mEq/L (8-16); CALCIUM 9.4 mg/dL (8.5-10.4); CARBON DIOXIDE 10 mEq/l (22-31); CHLORIDE 102 mEq/L (97-110); CREATININE 0.8 mg/dL (0.7-1.3); GLOMERULAR FILTRATION RATE > 60; GLUCOSE 57 mg/dL (70-100); POTASSIUM 3.9 mEq/L (3.5-5.2); SODIUM 141 mEq/L (134-144)
[2016-07-15 15:59] LABS: TROPONIN I < 0.012 ng/mL (0-0.034)
[2016-07-15 16:51] VITALS: BP 142/68; PULSE 93; TEMP 98.1; O2SAT 96
== END 2016-07-15 17:12 | disposition home or self-care (01) ==
DX: R11.2 Nausea with vomiting, unspecified (principal); R00.2 Palpitations
CPT/HCPCS: 96374; J2405

== ENCOUNTER 2016-07-31 11:13 | Inpatient (IN) | payer OTHER ==
[2016-07-31] MEDS ORDERED: NS 1,000 ML IV ONE (11:56)
[2016-07-31] MEDS ORDERED: MIDAZOLAM 2 MG/2 ML VIAL IVP ONE (11:56)
--- NOTE | 2016-07-31 12:05 | CPEKG ---
Heart Rate: 88 RR Interval: 682 P-R Interval: 160 QRSD Interval: 90 QT Interval: 356 QTC Interval: 431 P [place]: 78 QRS [place]: 86 T Wave [place]: 60 EKG Severity - NORMAL ECG - EKG Impression: SINUS RHYTHM Electronically Signed By: Ralf Gonzales 31-Jul-2016 15:51:30
[2016-07-31] MEDS ORDERED: HEPARIN 10,000 UNIT/10 ML MDV ONE (12:10)
[2016-07-31] MEDS ORDERED: BUPIVACAINE 0.5% 30 ML SDV ONE (12:10)
[2016-07-31] MEDS ORDERED: LIDOCAINE 1% 300 MG/30 ML SDV ONE (12:10)
[2016-07-31] MEDS ORDERED: ISOPROTERENOL HCL 0.2 MG/ML 5ML AMP ONE (12:10)
[2016-07-31] MEDS ORDERED: MIDAZOLAM 2 MG/2 ML VIAL ONE (12:15)
[2016-07-31 12:29] LABS: % IMMATURE GRANULYOCYTES 0.6 % (0.0-1.1); ABSOLUTE IMMATURE GRANULOCYTES 0.03 10^3/uL (0.00-0.10); ADD DIFF? NO; ADD MORPH? NO; ADD SCAN? NO; ATYPICAL LYMPHOCYTE FLAG 20 (0-99); FRAGMENT RBC FLAG 0 (0-99); HEMATOCRIT 47.5 % (40.0-51.0); HEMOGLOBIN 16.8 g/dL (13.7-17.5); LEFT SHIFT FLG 0 (0-99); LIPEMIA HEMOLYSIS FLAG 90 (0-99); MEAN CELL HEMOGLOBIN 34.6 pg (27.9-34.1); MEAN CELL HEMOGLOBIN CONCENTR. 35.4 g/dL (32.4-36.7); MEAN CELL VOLUME 97.9 fL (81.5-99.8); MEAN PLATELET VOLUME 11.5 fL (8.7-11.7); PLATELET CLUMPS FLAG 0 (0-99); PLATELET COUNT 205 10^3/uL (150-400); RED BLOOD CELL COUNT 4.85 10^6/uL (4.40-6.38); RED CELL DISTRIBUTION WIDTH 15.3 % (11.5-15.2)
[2016-07-31 12:45] LABS: APTT 27.1 SEC (23.0-38.0); INR 0.98 (0.83-1.16); PROTIME(PATIENT) 12.9 SEC (12.0-15.0)
[2016-07-31] MEDS ORDERED: fentaNYL 250 MCG/5 ML INJ ONE (12:46)
[2016-07-31] MEDS ORDERED: PROPOFOL 200 MG/20 ML VIAL ONE ×2 (12:46→13:10)
[2016-07-31] MEDS ORDERED: LIDOCAINE 2% JELLY 5 ML TUBE ONE (12:47)
[2016-07-31] MEDS ORDERED: DEXAMETHASONE 4 MG/ML VIAL ONE ×2 (12:47)
[2016-07-31] MEDS ORDERED: ONDANSETRON 4 MG/2 ML VIAL ONE (12:47)
[2016-07-31 12:54] LABS: ANION GAP 20 mEq/L (8-16); CALCIUM 9.7 mg/dL (8.5-10.4); CARBON DIOXIDE 22 mEq/l (22-31); CHLORIDE 103 mEq/L (97-110); CREATININE 0.7 mg/dL (0.7-1.3); GLOMERULAR FILTRATION RATE > 60; GLUCOSE 79 mg/dL (70-100); MAGNESIUM 1.4 mg/dL (1.6-2.3); POTASSIUM 4.4 mEq/L (3.5-5.2); SODIUM 145 mEq/L (134-144)
[2016-07-31] MEDS ORDERED: ROCURONIUM 50 MG/5 ML VIAL ONE (14:35)
[2016-07-31] MEDS ORDERED: fentaNYL 100 MCG/2 ML INJ ONE (15:01)
[2016-07-31] MEDS ORDERED: ACETAMINOPHEN 325 MG TAB PO PRN (16:25)
[2016-07-31] MEDS ORDERED: OXYCODONE/APAP 5/325 TAB PO PRN (16:25)
--- NOTE | 2016-07-31 16:25 | EPPROC ---
Electrophysiology Procedure Note: ELECTROPHYSIOLOGIC STUDY AND CATHETER MEDIATED ABLATION OF SLOW AV MACARIO PATHWAY AND CONCEALED POSTEROSEPTAL ACCESSORY PATHWAY PROCEDURES PERFORMED: 86664-90 EP evaluation with RA/RV/LA pace/record, with arrhythmia induction 38188-98 EP evaluation with RA/RV pace record, insert/reposition catheter, with arrhythmia induction 23543 Intracardiac catheter ablation, SVT arrhythmogenic focus Second arrhythmia 24821 3D mapping Fluoroscopy INDICATION: PROCEDURE: Catheters & Anesthesia: The patient arrived in the Electrophysiology Laboratory in the fasting state. The right clavicular region, right groin, and left groin area were prepped and draped in the usual sterile manner. Anesthesiologist Dr. Odonnell administered general anesthesia. Appropriate non-invasive blood pressure, pulse oximetry and end-tidal CO2 monitoring was established. All catheters were placed percutaneously using the modified Seldinger technique , and advanced into position under fluoroscopic guidance. One #6 [place] hexapolar non-deflectable electrode catheter was inserted into the right atrial appendage via the left femoral vein (2mm spacing; except the proximal ring which was 25cm from the tip used for unipolar recordings). One #7 [place] deflectable octapolar electrode catheter was advanced to the His-bundle position via the left femoral vein (2mm spacing). One #7 [place] deflectable quadrapolar catheter was advanced to the anteroseptal right ventricle via the right femoral vein. One #7 [place] deflectable catheter with 10 pairs of electrodes was placed via the right femoral vein into the coronary sinus. Heparin was given to keep ACT > 200 s. Atrial fibrillation occured x 3, 1 sustained episode required cardioversion. Programmed stimulation was performed from the right atrium, right ventricle and coronary sinus (left atrium). Parahisian pacing demonstrated 2 patterns of activation c.w. right posteroseptal accessory pathway. 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 SVT (upto 5 beats) started with long AH interval. VA interval was 15 ms. During decremental atrial pacing, antegrade conduction over slow AV macario pathway was seen. Since the patient has had sustained adenosine dependent SVT, we decided to ablate both the posteroseptal accessory pathway and slow AV macario pathway. Ablation of posteroseptal accessory pathway was done during V pacing. D curve 4 mm catheter and SL2 sheath were used. 3D mapping was done. Earliest activation was seen at the roof of the proximal CS, 1 cm from ostium. RF application at this site terminated retrograde conduction over AP. Parahisian pacing post ablation showed all retrograde conduction over AV node. Attention was now directed to ablating slow AV macario pathway. RF applications were delivered to the region between the tricuspid annulus and the coronary sinus ostium, at the level of the upper edge of the coronary sinus ostium. Radiofrequency applications were also delivered along the roof of the proximal coronary sinus. Junctional rhythm occurred during all of the RF applications. Programmed stimulation was continued post ablation at baseline and during graded doses of isoproterenol upto 4-20mcg/min. Sustained AVNRT was not inducible. There were no echo beats. The catheters were removed. The long sheath was changed to a short 9 Fr sheath. The patient was transferred to the cardiovascular holding area in stable condition. Vascular access sheaths were removed in the holding area. There were no apparent complications. Results: A. Spontaneous Intervals: Pre ablation SCL 890 ms AH 55 ms HV 40 ms Post ablation SCL 670 ms AH 50 ms HV 40 ms B. Antegrade AV macario function (decremental pacing) Pre ablation FPERP 350 ms SPERP 340 ms WBB CL 330 ms Post ablation FPERP 310 ms WBB CL 300 ms C. Retrograde AV macario function (decremental pacing) Pre ablation - accessory pathway FPERP 370 ms WBB CL 360 ms Post ablation FPERP 370 ms WBB CL 360 ms D. Arrhythmias: Nonsustained AVNRT CONCLUSIONS 1. Typical (slow/fast) AVNRT. 2. Successful ablation of the slow AV macario pathway with elimination of 1:1 antegrade conduction over the slow AV macario pathway, all retrograde conduction over the slow AV macario pathway and the inducibility of AVNRT. 3. Successful ablation of concealed posteroseptal accessory pathway. 4. No complications. Patient Problems: Problems Problem Status Onset Atrial fibrillation and flutter Acute Alcohol withdrawal Acute V tach Acute
[2016-07-31 17:34] LABS: ANION GAP 19 mEq/L (8-16); CALCIUM 8.7 mg/dL (8.5-10.4); CARBON DIOXIDE 18 mEq/l (22-31); CHLORIDE 105 mEq/L (97-110); GLOMERULAR FILTRATION RATE > 60; GLUCOSE 80 mg/dL (70-100); MAGNESIUM 1.1 mg/dL (1.6-2.3); SODIUM 142 mEq/L (134-144)
--- NOTE | 2016-07-31 17:58 | CPEKG ---
Heart Rate: 99 RR Interval: 606 P-R Interval: 168 QRSD Interval: 84 QT Interval: 344 QTC Interval: 442 P [place]: 71 QRS [place]: 89 T Wave [place]: 54 EKG Severity - OTHERWISE NORMAL ECG - EKG Impression: SINUS TACHYCARDIA EKG Impression: PAC Electronically Signed By: Ralf Gonzales 01-Aug-2016 11:59:24
[2016-07-31 20:01] LABS: ANION GAP 18 mEq/L (8-16); CALCIUM 8.9 mg/dL (8.5-10.4); CARBON DIOXIDE 18 mEq/l (22-31); CHLORIDE 100 mEq/L (97-110); CREATININE 0.8 mg/dL (0.7-1.3); GLOMERULAR FILTRATION RATE > 60; GLUCOSE 104 mg/dL (70-100); POTASSIUM 4.4 mEq/L (3.5-5.2); SODIUM 136 mEq/L (134-144)
[2016-07-31] MEDS: ONDANSETRON 4 MG/2 ML VIAL IVP PRN (20:13)
[2016-07-31] MEDS ORDERED: NS IV ONE (22:00)
[2016-07-31] MEDS ORDERED: MAGNESIUM SULFATE IV ONE (22:00)
[2016-07-31] MEDS ORDERED: LORazepam 1 MG TAB PO ONE (23:38)
[2016-07-31] MEDS ORDERED: LORazepam 1 MG TAB PO PRN (23:38)
[2016-08-01 05:51] LABS: % IMMATURE GRANULYOCYTES 0.8 % (0.0-1.1); ABSOLUTE IMMATURE GRANULOCYTES 0.04 10^3/uL (0.00-0.10); ADD DIFF? NO; ADD MORPH? NO; ADD SCAN? NO; ATYPICAL LYMPHOCYTE FLAG 0 (0-99); FRAGMENT RBC FLAG 0 (0-99); HEMATOCRIT 41.9 % (40.0-51.0); HEMOGLOBIN 14.4 g/dL (13.7-17.5); LEFT SHIFT FLG 0 (0-99); LIPEMIA HEMOLYSIS FLAG 90 (0-99); MEAN CELL HEMOGLOBIN 34.1 pg (27.9-34.1); MEAN CELL HEMOGLOBIN CONCENTR. 34.4 g/dL (32.4-36.7); MEAN CELL VOLUME 99.3 fL (81.5-99.8); MEAN PLATELET VOLUME 12.5 fL (8.7-11.7); PLATELET CLUMPS FLAG 0 (0-99); PLATELET COUNT 147 10^3/uL (150-400); RED BLOOD CELL COUNT 4.22 10^6/uL (4.40-6.38); RED CELL DISTRIBUTION WIDTH 14.9 % (11.5-15.2)
[2016-08-01 06:08] LABS: INR 1.04 (0.83-1.16); PROTIME(PATIENT) 13.5 SEC (12.0-15.0)
[2016-08-01 06:16] LABS: ANION GAP 13 mEq/L (8-16); CALCIUM 8.5 mg/dL (8.5-10.4); CARBON DIOXIDE 24 mEq/l (22-31); CHLORIDE 98 mEq/L (97-110); CREATININE 0.7 mg/dL (0.7-1.3); GLOMERULAR FILTRATION RATE > 60; GLUCOSE 100 mg/dL (70-100); MAGNESIUM 1.5 mg/dL (1.6-2.3); POTASSIUM 4.4 mEq/L (3.5-5.2); SODIUM 135 mEq/L (134-144)
[2016-08-01 06:22] LABS: CREATINE KINASE-MB FRACTION 1.29 ng/mL (0-3.19); TROPONIN I 0.239 ng/mL (0-0.034)
[2016-08-01] MEDS: ONDANSETRON 4 MG/2 ML VIAL IVP PRN (08:22)
--- NOTE | 2016-08-01 08:40 | CPEKG ---
Heart Rate: 86 RR Interval: 698 P-R Interval: 148 QRSD Interval: 90 QT Interval: 376 QTC Interval: 450 P [place]: 67 QRS [place]: 87 T Wave [place]: 25 EKG Severity - NORMAL ECG - EKG Impression: SINUS RHYTHM Electronically Signed By: Ralf Gonzales 01-Aug-2016 11:59:11
--- NOTE | 2016-08-01 09:06 | ECHO ---
[id number] + + [address] : : [place] [id number] : : [phone] + + Adult Echocardiographic Report + ----+ :Name: CARLOS HAY LStudy Date: 08/01/2016 07:47 AM : : Hospital Admission Number: [id number] Location: 219: :: 1990 Gender: Male Height: 73 in : :Age: 25 yrs Race: WH Weight: 175 lb : :Reason For Study: F/U post EP study : : BSA: 2.0 meters2 : + ----+ MMode/2D Measurements \T\ Calculations IVSd: 0.90 cm LVIDd: 5.1 cm FS: 37.8 % Ao root diam: LVPWd: 0.90 cm LVIDs: 3.2 cm EDV(Teich): 3.4 cm 125.7 ml LA dimension: ESV(Teich): 3.5 cm 40.7 ml EF(Teich): 67.6 % LVLd ap4: 9.3 cm SV(MOD-sp4): EDV(MOD-sp4): 96.0 ml 133.0 ml LVLs ap4: 7.5 cm ESV(MOD-sp4): 37.0 ml EF(MOD-sp4): 72.2 % Normal Measurement Values: + + :LVIDd (3.5-5.7cm) IVSd (0.6-1.1cm) LVPWd (0.6-1.1cm) Aortic Root (2.0-3.7cm)Left Atrium (1.5-4.0cm): :LV Vol(d) (76-115ml) LV Vol(s) (29-48ml) Ejec Fraction (50-65%)PV Kings (0.6- 1.2m/s) TV Kings (0.4-1.0m/s) : :MV E Kings (0.8-1.0m/s)MV A Kings (0.3-1.0m/s)LVOT Kings (0.7-1.2m/s) Asc Ao Kings ( 0.9-1.8m/s) : + + Doppler Measurements \T\ Calculations MV E max kings: 68.6 cm/sec Ao V2 max: 112.7 cm/sec MV A max kings: 46.4 cm/sec Ao max P.1 mmHg MV E/A: 1.5 Left Ventricle The left ventricle is normal in size. There is normal left ventricular wall thickness. Left ventricular systolic function is normal. Ejection Fraction = 65-70%. No regional wall motion abnormalities noted. Right Ventricle The right ventricle is normal in size and function. Atria The left atrial size is normal. Right atrial size is normal. The interatrial septum is intact with no evidence for an atrial septal defect. Mitral Valve The mitral valve is normal in structure and function. There is no evidence of mitral valve prolapse. There is no mitral valve stenosis. There is trace mitral regurgitation. Tricuspid Valve Normal tricuspid valve. There is trace tricuspid regurgitation. Aortic Valve The aortic valve is trileaflet. The aortic valve opens well. There is no aortic stenosis. There is no aortic insufficiency. Pulmonic Valve The pulmonic valve is normal in structure and function. There is no pulmonic valvular regurgitation. Great Vessels The aortic root is normal size. Pericardium/Pleural There is no pericardial effusion. Conclusion A complete two-dimensional transthoracic echocardiogram was performed (2D, M-mode, Doppler and color flow Doppler). Left ventricular systolic function is normal. Ejection Fraction = 65-70%. There is trace mitral regurgitation. There is trace tricuspid regurgitation. There is no pericardial effusion. Final Reading Physician: Ralf Gonzales MD electronically signed on 08/01/2016 09:04 AM Ordering Physician: Ralf Gonzales Performed By: Florence Ac RDCS
[2016-08-01] MEDS ORDERED: chlordiazePOXIDE 25 MG CAP PO ONE (09:12)
[2016-08-01] MEDS ORDERED: LORazepam 2 MG/ML INJ IVP PRN (09:12)
[2016-08-01] MEDS ORDERED: chlordiazePOXIDE 25 MG CAP PO PRN (09:12)
[2016-08-01] MEDS: FAMOTIDINE 20 MG TAB PO SCH ×2 (09:23→21:10)
[2016-08-01] MEDS: ASPIRIN 81 MG CHEWABLE TAB PO SCH (09:23)
[2016-08-01] MEDS ORDERED: MAGNESIUM SULF 2 GM/WATER 50 ML IV ONE (09:26)
--- NOTE | 2016-08-01 09:44 | PDCARPN ---
Cardiology Progress Note Chief Complaint: nausea Assessment/Plan: Assessment: 1. 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 Groin sites without bleeding or hematoma. Echocardiogram demonstrates normal EF and no effusion. EKG demonstrates SR. Troponin elevated and WNL for post ablation. 2.Alcohol withdrawl. He reports last drink 3 days ago. Reports drinking 1 L of vodka daily. Has received valium and zofran. Mag is low and he received 2gm in 1 L NS during the night. He remains tremulous and diaphoretic. 3. Bipolar disorder Plan: 08/01/16 09:43 1. He was given post procedure instructions for no lifting over 10lbs or vigorous activity for 1 week. He should splint groin sites when coughing, sneezing or vomiting over next few days. Continue PAS while not mobile. He should take aspirin 81 mg daily for 6 weeks post ablation, unless contraindicated. He needs to f/u with Dr. Gonzales in 1 month. 2. He was transferred to medicine, Dr. Izquierdo, for management of alcohol withdrawl. 08/01/16 12:10 08/01/16 12:18 Subjective: Reports nausea, tremors. Denies chest pain, shortness of breath, palpitations or leg pain. Reviewed/Discussed With: other (Reviewed with Dr. Gonzales and Dr. Izquierdo) Objective: Vital Signs (8 Hrs) Temp Pulse Resp BP Pulse Ox 08/01/16 08:00 36.9 C 106 H 20 151/94 H 95 08/01/16 04:00 36.6 C 82 18 132/85 H 94 Intake/Output (24 Hrs) 07/31/16 08/01/16 08/02/16 05:59 05:59 05:59 Intake Total 1000 Output Total 900 Balance 100 Intake: Oral (ml) 400 IV Infused (ml) 600 Magnesium Sulfate 2 gm In 600 Ns 1,000 ml @ 83.667 mls /hr IV ONCE ONE Rx#: [id number] Output: Urine (ml) 900 Urinal 900 Other: Weight 77.1 kg Number of Voids Urinal 2 Result Diagrams: 08/01/16 04:45 08/01/16 04:45 Cardiac Labs: Cardiac Lab Results (72 Hrs) 08/01/16 04:45 CK-MB (CK-2) Fraction 1.29 Troponin I 0.239 H EKG: Sinus rhythm Telemetry: SR and ST - Physical Exam Constitutional: other (Diaphoretic, tremulous) Eyes: PERRL Cardiovascular: regular rate and rhythm, no murmurs, no rubs, no gallops, No systolic murmur, No diastolic murmur Peripheral Pulses: 2+: femoral (R), femoral (L), dorsalis-pedis (R), dorsalis- pedis (L) Respiratory: clear to auscultate bilat Gastrointestinal: normoactive bowel sounds Skin: warm Neurologic: AAOx3 Psychiatric: cooperative, anxious ICD10 Worksheet Patient Problems: Problems Problem Status Onset Alcohol withdrawal Acute Atrial fibrillation and flutter Acute V tach Acute
--- NOTE | 2016-08-01 10:09 | GHP ---
[f rep st] HISTORY AND PHYSICAL DATE OF ADMISSION: 07/31/2016 HISTORY OF PRESENT ILLNESS: The patient is a pleasant 25-year-old gentleman who was admitted to the hospital yesterday for an electrophysiology procedure for an ablation of SVT. This was successful and I refer the reader to Dr. Gonzales's electrophysiology note from yesterday. The patient does have a heavy alcohol history and overnight became agitated, tremulous and tachycard ic. He has been admitted here for alcohol withdrawal. When I speak with the patient, he is tremulous but alert and pleasant. He denies hallucinations or the feeling of bugs crawling on his skin. He says he last had alcohol maybe 3 days ago. He says he typically drinks enough to "get a buzz " every day. He has not had hematemesis or coffee-ground em esis, nor has he had melena. He has had evidence of transaminitis on admission here in June. At jabier t time, his bilirubin was normal. He denies a history of jaundice at home. He expresses a strong desire to quit drinking alcohol and a plan to go to . He has not had an alcohol withdrawal seizure. REVIEW OF SYSTEMS: Complete 10-point review of systems conducted and negative except as noted in th e HPI. PAST MEDICAL HISTORY: Alcoholism and supraventricular tachycardia. ALLERGIES: Diltiazem to which he gets a rash. HOME MEDICATIONS: None. SOCIAL HISTORY: Lives in [place]. He is currently not working. Does not smoke cigarettes. Al cohol as in the HPI. FAMILY HISTORY: Notable for alcoholism. PHYSICAL EXAM: VITAL SIGNS: At this point, temperature 37, blood pressure 151/94, pulse 106, breat keith 20 times a minute, 95% on room air. GENERAL: Tremulous but no acute distress. HEENT: Sclera e anicteric. Oropharynx clear. Mucous membranes moist. NECK: Supple without lymphadenopathy or J VD. LUNGS: Clear to auscultation bilaterally. HEART: S1, S2. Tachycardic without murmur. ABDOM EN: Soft, nontender, nondistended. LOWER EXTREMITIES: No edema. Calves nontender. SKIN: Withou t rash. NEUROLOGIC: Nonfocal. LABORATORY DATA: Sodium 135, potassium 4.4, chloride 98, bicarb 22, BUN 10, creatinine 0.7, calcium 8.5, phos 4.3, magnesium is 1.5 up from 1.0. Troponin is 0.239. White count 5, hematocrit 42, lalita telets are 147,000. Coags are normal this morning. EKG this morning, interpreted by me shows sinus at 86 with normal axis and intervals. There is a T-wave inversion in lead III. There are some sli ghtly peaked T-waves across the precordium. This is similar to an EKG obtained yesterday. An echoc ardiogram done this morning shows LV systolic function normal, EF of 65%-70%. Trace MR. Trace TR. No effusion. I discussed the case with Dr. Ralf Gonzales. ASSESSMENT/PLAN: A 25-year-old gentleman with supraventricular tachycardia admitted for ablation no w with alcohol withdrawal. 1. Alcohol withdrawal, acute. We will give him a loading dose of Librium 50 mg. He received benzo diazepines over night. We will place him on CIWA. I think the patient does have a desire to quit d rinking alcohol so giving him alcohol is not indicated. 2. Hypomagnesemia. I will give him 2 g of magnesium and follow daily. 3. Supraventricular tachycardia. He is status post ablation. We will follow on telemetry. 4. Elevated troponin. This is almost certainly secondary to EP procedure yesterday. I will discus s this with Dr. Gonzales. 5. Thrombocytopenia. This is mild. I suspect we will repeat it again tomorrow. Certainly with al cohol use, he is at risk for low platelets. 6. Prophylaxis. He is young so pharmacologic prophylaxis can be ambulation. DISPOSITION: Inpatient status. I have changed the attending from Dr. Ralf Gonzales to Milton Izquierdo. /[id number]/MODL
[2016-08-01] MEDS: chlordiazePOXIDE 25 MG CAP PO PRN ×3 (14:10→22:58)
[2016-08-01] MEDS ORDERED: TEMAZEPAM 15 MG CAP PO PRN (19:20)
[2016-08-02 04:53] LABS: HEMATOCRIT 42.6 % (40.0-51.0); HEMOGLOBIN 14.4 g/dL (13.7-17.5); MEAN CELL HEMOGLOBIN 34.1 pg (27.9-34.1); MEAN CELL HEMOGLOBIN CONCENTR. 33.8 g/dL (32.4-36.7); MEAN CELL VOLUME 100.9 fL (81.5-99.8); RED BLOOD CELL COUNT 4.22 10^6/uL (4.40-6.38); RED CELL DISTRIBUTION WIDTH 14.6 % (11.5-15.2)
[2016-08-02 04:57] LABS: ANION GAP 11 mEq/L (8-16); CALCIUM 8.8 mg/dL (8.5-10.4); CARBON DIOXIDE 24 mEq/l (22-31); CHLORIDE 101 mEq/L (97-110); CREATININE 0.7 mg/dL (0.7-1.3); GLOMERULAR FILTRATION RATE > 60; GLUCOSE 79 mg/dL (70-100); POTASSIUM 3.7 mEq/L (3.5-5.2); SODIUM 136 mEq/L (134-144)
[2016-08-02 05:09] VITALS: RESP 16
[2016-08-02] MEDS: chlordiazePOXIDE 25 MG CAP PO PRN (05:15)
[2016-08-02 08:34] VITALS: BP 136/90; PULSE 82; TEMP 97.8; O2SAT 96
[2016-08-02] MEDS: ASPIRIN 81 MG CHEWABLE TAB PO SCH (08:55)
[2016-08-02] MEDS: FAMOTIDINE 20 MG TAB PO SCH (08:56)
--- NOTE | 2016-08-02 09:11 | HOSPPROG ---
Hospitalist Progress Note Assessment/Plan: 25 yo M w alcoholism, SVT s/p ablation. post procedure course c/b alcohol withdrawal withdrawal: improved home today > 30 minutes on dc see dc summary Subjective: no svt on tele. feels much better Objective: Vital Signs Temp Pulse Resp BP Pulse Ox 36.6 C 82 16 136/90 H 96 08/02/16 08:00 08/02/16 08:00 08/02/16 08:00 08/02/16 08:00 08/02/16 08:00 Laboratory Results 08/02/16 03:58 08/02/16 03:58 08/01/16 08/02/16 08/03/16 05:59 05:59 05:59 Intake Total 1000 2292 Output Total 900 1600 Balance 100 692 PT 13.5 SEC (12.0-15.0) 08/01/16 04:45 INR 1.04 (0.83-1.16) 08/01/16 04:45 - Physical Exam Constitutional: no apparent distress, appears nourished Eyes: PERRL, anicteric sclera Ears, Nose, Mouth, Throat: moist mucous membranes, hearing normal Cardiovascular: regular rate and rhythym, no murmur, rub, or gallop Respiratory: no respiratory distress, no rales or rhonchi Gastrointestinal: normoactive bowel sounds, soft, non-tender abdomen Genitourinary: no bladder fullness, No souza in urethra Skin: warm, normal color Musculoskeletal: full muscle strength, no muscle tenderness Neurologic: AAOx3 ICD10 Worksheet Patient Problems: Problems Problem Status Onset Alcohol withdrawal Acute Atrial fibrillation and flutter Acute V tach Acute
[2016-08-02] MEDS ORDERED: chlordiazePOXIDE 25 MG CAP PO ONE (09:12)
--- NOTE | 2016-08-02 10:07 | GDS ---
[f rep st] DISCHARGE SUMMARY DISCHARGE DIAGNOSES: 1. Supraventricular tachycardia status post ablation. 2. Alcoholism. 3. Alcohol withdrawal, now resolved. HOSPITAL COURSE: Please see admission history and physical by Dr. Milton Izquierdo. The patient was admitted for an EP procedure. On postprocedure day 1, the patient became tachycardic and tremulous and hypertensive. He did not have mental status changes. He did not have seizure. He acknowledges heavy alcohol use and is known in the past. He was treated with Librium and Ativan and on the day of discharge, the patient is no longer tachycardic and hungry and feels appropriate for discharge. His groin his son groin access sites looked good. He has plans to attend AA which he was encouraged to do. He was not provided with any medications on discharge. /[id number]/MODL
[2016-08-03] MEDS ORDERED: THIAMINE HCL 100 MG TAB PO SCH (09:00)
== END 2016-08-02 10:57 | disposition home or self-care (01) | DRG 982 ==
LOC: F2W 11:13 → OBSVTOIN 08-01 16:30
PROVIDERS: ADMIT Internal Medicine Cardiovascular Disease; ATTEND Internal Medicine Cardiovascular Disease
PROC: 02563ZZ Destruction of Right Atrium, Percutaneous Approach (ICD-10-PCS; principal; 2016-07-31)
DX: F10.239 Alcohol dependence with withdrawal, unspecified (principal); I47.1 Supraventricular tachycardia; E83.42 Hypomagnesemia
CPT/HCPCS: C1730; C1731; C1732; C1893; G0378; J1100; J1644; J2250; J2405; J2704; J3010

== ENCOUNTER 2016-09-05 15:13 | Emergency (ER) | payer OTHER ==
[2016-09-05 15:19] VITALS: TEMP 97.7
--- NOTE | 2016-09-05 15:21 | EDPHY ---
H & P Stated Complaint: svt/ablation 3 weeks ago/stopped drinking/ruq abd pain/nausea since Time Seen by Provider: 09/05/16 15:20 - Personal History Current Tetanus/Diphtheria Vaccine: Yes Tetanus Vaccine Date: < 10 years - Medical/Surgical History Hx Asthma: No Hx Chronic Respiratory Disease: No Hx Diabetes: No Hx Cardiac Disease: Yes Hx Renal Disease: No Hx Cirrhosis: No Hx Alcoholism: No Hx HIV/AIDS: No Hx Splenectomy or Spleen Trauma: No Other PMH: Alcoholic, anxiety, bipolar ablation for svt - Social History Smoking Status: Never smoked Constitutional: Initial Vital Signs Temperature (C) 36.5 C 09/05/16 15:16 Heart Rate 112 H 09/05/16 15:16 Respiratory Rate 22 H 09/05/16 15:16 Blood Pressure 149/102 H 09/05/16 15:16 O2 Sat (%) 97 09/05/16 15:16 O2 Delivery Mode Room Air Allergies/Adverse Reactions: diltiazem Allergy (Mild, Verified 09/05/16 15:16) rash/hives Home Medications: Medication Instructions Recorded Famotidine [Pepcid 20 MG (OTC)] 20 mg PO DAILY #30 tab 09/05/16 oxyCODONE IR [Oxycodone Ir (*)] 5 - 10 mg PO Q6 PRN #20 tab 09/05/16 Medical Decision Making - Diagnostics Imaging Results: Imaging Impressions Abdomen Ultrasound 09/05/16 16:28 Impression: 1. No cholelithiasis or biliary ductal dilation. 2. Hepatomegaly and hepatic steatosis. 3. Heterogenous pancreas without peripancreatic fluid. Findings and recommendations discussed with Emergency Department physician, Macario Douglass MD at 17:42 hour, 09/05/2016. Final report concurs with initial preliminary interpretation. Imaging: Discussed imaging studies w/ call circuit worker Radiologist ED Course/Re-evaluation: CHIEF COMPLAINT: Stomach pain, vomiting. HISTORY OF PRESENT ILLNESS: This patient is a 26 year old male complaining of abdominal pain and vomiting over the last several weeks. He had a cardiac ablation with Dr. Gonzales and subsequent admission last month and was discharged 08/02/16. He continues to follow up with Dr Gonzales, He has a history of alcohol abuse, but has discontinued this following his cardiac procedures. Recent tests show improved liver function. He states he has trouble sleeping, and has been taking 3-4 Benadryl per night. He has developed abdominal pain which he describes as pressure and discomfrot, mostly localized to the right. He denies taking aspirin or ibuprofen , but did take naproxen two nights ago for shoulder pain. He also complains of generalized fatigue and possible dehydration, as he has not been able to eat much for the last two weeks. He endorses abnormal bowel movement and occasional black-flecked emesis. He states that sometimes eating a sugary snack will help him to feel better. He denies fever, diarrhea, shortness of breath, chest pain, or other associated symptoms. REVIEW OF SYSTEMS: A 10 point review of systems was performed and is negative with the exception of the elements mentioned in the history of present illness. PHYSICAL EXAM: HR, BP, O2 Sat, RR. Temp noted General Appearance: Alert, well hydrated, appropriate, and non-toxic appearing. Head: Atraumatic without scalp tenderness or obvious injury Eyes: Pupils equal, round, reactive to light and accommodation, EOMI, no trauma , no injection. Ears: Clear bilaterally, no perforation, normal landmarks Nose: Atraumatic, no rhinorrhea, clear. Throat: There is no erythema or exudates, no lesions, normal tonsils, mucus membranes moist. Neck: Supple, 2+ carotid upstroke, nontender, no lymphadenopathy. Respiratory: No retractions, no distress, no wheezes, and no accessory muscle use. Lungs are clear to auscultation bilaterally. Cardiovascular: Regular rate and rhythm, no murmurs, rubs, or gallops. Bilateral carotid, radial, dorsalis pedis, and posterior tibial pulses intact. Good capillary refill all extremities. Gastrointestinal: Abdomen is soft, nontender, non-distended, no masses, no rebound, no guarding, no peritoneal signs. Musculoskeletal: Normal active ROM of all extremities, atraumatic. Neurological: Alert, appropriate, and interactive. The patient has normal DTRs and non-focal cranial nerves, motor, sensory, and cerebellar exam. Skin: No rashes, good turgor, no nodules on palpation. Past medical history: SVT, alcoholism, anxiety Past surgical history: 2x cardiac ablation Family history: Noncontributory Social history: Friend at bedside DIFFERENTIAL DIAGNOSIS: The differential diagnosis for the patient's abdominal pain included but was not limited to appendicitis, cholecystitis, hernias, testicular torsion, gastritis, and urinary tract infection. MEDICAL DECISION MAKIN26 year old male with history of alcoholism and recent cardiac ablation presents with three week history of abdominal pain and nausea. Plan for US abdomen/ pelvis to assess for acute processes. Plan to administer GI cocktail, 40mg IV Protonix for symptom relief. Labs show elevated liver enzymes. Patient states he has discontinued alcohol use. 17:[address] Diaz, radiologist. US abdomen negative for acute processes. No cholecystitis. Plan to discharge home in good condition with prescriptions for Pepcid and Oxycodone for symptom relief. He will follow up with gastroenterology for further evaluation. Return precautions discussed. The patient is comfortable with this plan. - Data Points Laboratory Results: Laboratory Results 09/05/16 16:00 09/05/16 15:30 09/05/16 09/05/16 16:00 15:30 WBC 5.88 10^3/uL 10^3/uL (3.80-9.50) RBC 5.24 10^6/uL 10^6/uL (4.40-6.38) Hgb 18.3 g/dL H g/dL (13.7-17.5) Hct 50.2 % % (40.0-51.0) MCV 95.8 fL fL (81.5-99.8) MCH 34.9 pg H pg (27.9-34.1) MCHC 36.5 g/dL g/dL (32.4-36.7) RDW 14.0 % % (11.5-15.2) Plt Count 215 10^3/uL 10^3/uL (150-400) MPV 11.4 fL fL (8.7-11.7) Neut % (Auto) 45.4 % % (39.3-74.2) Lymph % (Auto) 35.4 % % (15.0-45.0) Marion % (Auto) 15.5 % H % (4.5-13.0) Eos % (Auto) 0.3 % L % (0.6-7.6) Baso % (Auto) 3.2 % H % (0.3-1.7) Nucleat RBC Rel Count 0.0 % % (0.0-0.2) Absolute Neuts (auto) 2.67 10^3/uL 10^3/uL (1.70-6.50) Absolute Lymphs (auto) 2.08 10^3/uL 10^3/uL (1.00-3.00) Absolute Monos (auto) 0.91 10^3/uL H 10^3/uL (0.30-0.80) Absolute Eos (auto) 0.02 10^3/uL L 10^3/uL (0.03-0.40) Absolute Basos (auto) 0.19 10^3/uL H 10^3/uL (0.02-0.10) Absolute Nucleated RBC 0.00 10^3/uL 10^3/uL (0-0.01) Immature Gran % 0.2 % % (0.0-1.1) Immature Gran # 0.01 10^3/uL 10^3/uL (0.00-0.10) Sodium 146 mEq/L H mEq/L (134-144) Potassium 3.9 mEq/L mEq/L (3.5-5.2) Chloride 100 mEq/L mEq/L (97-110) Carbon Dioxide 17 mEq/l L mEq/l (22-31) Anion Gap 29 mEq/L H mEq/L (8-16) BUN 11 mg/dL mg/dL (7-23) Creatinine 0.9 mg/dL mg/dL (0.7-1.3) Estimated GFR > 60 Glucose 88 mg/dL mg/dL (70-100) Calcium 10.8 mg/dL H mg/dL (8.5-10.4) Phosphorus 3.0 mg/dL mg/dL (2.5-4.5) Total Bilirubin 1.2 mg/dL mg/dL (0.1-1.4) Conjugated Bilirubin 0.5 mg/dL mg/dL (0.0-0.5) Unconjugated Bilirubin 0.7 mg/dL mg/dL (0.0-1.1) AST 186 IU/L H IU/L (17-59) ALT 88 IU/L H IU/L (21-72) Alkaline Phosphatase 69 IU/L IU/L (38-126) Total Protein 8.3 g/dL H g/dL (6.3-8.2) Albumin 5.4 g/dL H g/dL (3.5-5.0) Lipase 97.0 IU/L IU/L (23-300) Medications Given: Discontinued Medications Al Hydroxide/Mg Hydroxide (Maalox Susp) 30 ml PO ONCE ONE Stop: 09/05/16 15:59 Last Admin: 09/05/16 16:12 Dose: 30 ml Hydromorphone HCl (Dilaudid) 0.5 mg IVP EDNOW ONE Stop: 09/05/16 16:13 Last Admin: 09/05/16 16:40 Dose: 0.5 mg Hyoscyamine Sulfate (Levsin, Hyomax-Sl) 0.25 mg PO ONCE ONE Stop: 09/05/16 15:59 Last Admin: 09/05/16 16:12 Dose: 0.25 mg Sodium Chloride (Ns) 1,000 mls @ 0 mls/hr IV EDNOW ONE; Wide Open PRN Reason: Protocol Stop: 09/05/16 15:59 Last Admin: 09/05/16 16:07 Dose: 1,000 mls Sodium Chloride (Ns) 1,000 mls @ 0 mls/hr IV EDNOW ONE; Wide Open PRN Reason: Protocol Stop: 09/05/16 16:13 Last Admin: 09/05/16 16:47 Dose: 1,000 mls Pantoprazole Sodium 40 mg/ (Sodium Chloride) 100 mls @ 10 mls/hr IV Q10H ONE Stop: 09/06/16 02:11 Last Admin: 09/05/16 17:00 Dose: Not Given Ketorolac Tromethamine (Toradol) 30 mg IVP EDNOW ONE Stop: 09/05/16 16:13 Last Admin: 09/05/16 16:34 Dose: 30 mg Lidocaine (Lidocaine 2% Viscous) 15 ml PO ONCE ONE Stop: 09/05/16 15:59 Last Admin: 09/05/16 16:12 Dose: 15 ml Ondansetron HCl (Zofran) 4 mg IVP EDNOW ONE Stop: 09/05/16 15:59 Last Admin: 09/05/16 16:07 Dose: 4 mg Pantoprazole Sodium (Protonix) 40 mg IVP EDNOW ONE Stop: 09/05/16 16:39 Last Admin: 09/05/16 16:39 Dose: 40 mg Departure - Departure Disposition: Home, Routine, Self-Care Clinical Impression: Gastritis Qualifiers: Gastritis type: other gastritis Chronicity: acute Gastritis bleeding: with bleeding Qualified Code(s): K29.01 - Acute gastritis with bleeding Condition: Good Instructions: Gastritis (ED) Additional Instructions: 1. Take your Pepcid as prescribed. 2. Take your Oxycodone as prescribed as needed for severe pain. 3. Follow up with a polysomnographer for continued evaluation of your symptoms. We have referred you to our polysomnographer electronics computer mechanic. 4. Return to the Emergency Department for severe uncontrollable pain, uncontrollable vomiting, or other worsening of condition. Referrals: Joo Watson DO [Primary Care Provider] - As per Instructions Primitivo Campos MD [[facility] Primary Care Provider] - As per Instructions Prescriptions: Famotidine [Pepcid 20 MG (OTC)] 20 mg PO DAILY #30 tab oxyCODONE IR [Oxycodone Ir (*)] 5 - 10 mg PO Q6 PRN #20 tab PRN Reason: Pain, Severe Report Scribed for: Macario Douglass Report Scribed by: Kenia Hernandez Date of Report: 09/05/16 Time of Report: 15:54
[2016-09-05] MEDS ORDERED: NS 1,000 ML IV ONE ×2 (15:58→16:12)
[2016-09-05] MEDS ORDERED: MAG HYDROX/AL HYDROX/SIMETH 30 ML UDCUP PO ONE (15:58)
[2016-09-05] MEDS ORDERED: LIDOCAINE 2% VISCOUS 15 ML UDCUP PO ONE (15:58)
[2016-09-05] MEDS ORDERED: HYOSCYAMINE SULFATE 0.125 MG TAB PO ONE (15:58)
[2016-09-05] MEDS ORDERED: ONDANSETRON 4 MG/2 ML VIAL IVP ONE (15:58)
[2016-09-05 16:05] LABS: % IMMATURE GRANULYOCYTES 0.2 % (0.0-1.1); ABSOLUTE IMMATURE GRANULOCYTES 0.01 10^3/uL (0.00-0.10); ADD DIFF? NO; ADD MORPH? NO; ADD SCAN? NO; ATYPICAL LYMPHOCYTE FLAG 10 (0-99); FRAGMENT RBC FLAG 0 (0-99); HEMATOCRIT 50.2 % (40.0-51.0); HEMOGLOBIN 18.3 g/dL (13.7-17.5); LEFT SHIFT FLG 0 (0-99); LIPEMIA HEMOLYSIS FLAG 90 (0-99); MEAN CELL HEMOGLOBIN 34.9 pg (27.9-34.1); MEAN CELL HEMOGLOBIN CONCENTR. 36.5 g/dL (32.4-36.7); MEAN CELL VOLUME 95.8 fL (81.5-99.8); MEAN PLATELET VOLUME 11.4 fL (8.7-11.7); PLATELET CLUMPS FLAG 20 (0-99); PLATELET COUNT 215 10^3/uL (150-400); RED BLOOD CELL COUNT 5.24 10^6/uL (4.40-6.38)
[2016-09-05 16:12] LABS: ALANINE AMINOTRANSFERASE 88 IU/L (21-72); ALBUMIN 5.4 g/dL (3.5-5.0); ALKALINE PHOSPHATASE 69 IU/L (38-126); ANION GAP 29 mEq/L (8-16); ASPARTATE AMINOTRANSFERASE 186 IU/L (17-59); BILIRUBIN,TOTAL 1.2 mg/dL (0.1-1.4); BILIRUBIN-CONJUGATED 0.5 mg/dL (0.0-0.5); BILIRUBIN-UNCONJUGATED 0.7 mg/dL (0.0-1.1); CALCIUM 10.8 mg/dL (8.5-10.4); CARBON DIOXIDE 17 mEq/l (22-31); CHLORIDE 100 mEq/L (97-110); CREATININE 0.9 mg/dL (0.7-1.3); GLOMERULAR FILTRATION RATE > 60; GLUCOSE 88 mg/dL (70-100); POTASSIUM 3.9 mEq/L (3.5-5.2); SODIUM 146 mEq/L (134-144); TOTAL PROTEIN 8.3 g/dL (6.3-8.2)
[2016-09-05] MEDS ORDERED: KETOROLAC 30 MG/1 ML SDV IVP ONE (16:12)
[2016-09-05] MEDS ORDERED: HYDROmorphONE/DILAUDID 1 MG/ML SYR IVP ONE (16:12)
[2016-09-05] MEDS ORDERED: PANTOPRAZOLE SODIUM 40 MG in NS 100 ML IV ONE (16:12)
[2016-09-05] MEDS ORDERED: PANTOPRAZOLE SODIUM 40 MG VIAL ONE (16:30)
[2016-09-05] MEDS ORDERED: PANTOPRAZOLE SODIUM 40 MG VIAL IVP ONE (16:38)
[2016-09-05 17:02] VITALS: O2SAT 95
[2016-09-05 18:05] VITALS: RESP 18
[2016-09-05 18:51] VITALS: BP 141/83; PULSE 100
== END 2016-09-05 18:54 | disposition home or self-care (01) ==
DX: K29.01 Acute gastritis with bleeding (principal); E86.9 Volume depletion, unspecified
CPT/HCPCS: 96374; J1170; J1885; J2405

== ENCOUNTER 2016-11-09 16:57 | Emergency (ER) | payer OTHER ==
[2016-11-09 17:05] VITALS: TEMP 98.6
[2016-11-09] MEDS ORDERED: NS 1,000 ML IV ONE ×3 (17:15→19:47)
[2016-11-09] MEDS ORDERED: LORazepam 2 MG/ML INJ IVP ONE ×4 (17:15→19:47)
[2016-11-09] MEDS ORDERED: chlordiazePOXIDE 25 MG CAP PO ONE (17:15)
--- NOTE | 2016-11-09 17:17 | EDPHY ---
H & P Stated Complaint: ETOH. detox last drink a few hours ago Source: Patient, RN/MD Exam Limitations: No limitations - Personal History Current Tetanus/Diphtheria Vaccine: Yes Current Tetanus Diphtheria and Acellular Pertussis (TDAP): Yes Tetanus Vaccine Date: < 10 years - Medical/Surgical History Hx Asthma: No Hx Chronic Respiratory Disease: No Hx Diabetes: No Hx Cardiac Disease: Yes Hx Renal Disease: No Hx Cirrhosis: No Hx Alcoholism: No Hx HIV/AIDS: No Hx Splenectomy or Spleen Trauma: No Other PMH: Alcoholic, anxiety, bipolar ablation for svt - Social History Smoking Status: Never smoked HPI/ROS: CHIEF COMPLAINT: Alcohol withdrawal HISTORY OF PRESENT ILLNESS: Patient complains of alcohol withdrawal. He admits to heavy alcohol use on a daily basis. This is anywhere from 10-12 drinks of vodka daily. He has done this for years he says. He feels that he is withdrawing. He says that he last had intake of alcohol approximately 2 hours ago, but this was significantly less amount than a typical day for him. He has no chest pain but his heart has been racing and he does have palpitations. He has no shortness of breath. He has felt shaky and diaphoretic. Some nausea but no vomiting. No abdominal complaints. No thoughts of self-harm or harm towards others. He reports a history of SVT status post ablation in July of this year. He denies any other associated complaints or modifying factors. REVIEW OF SYSTEMS: Ten systems reviewed and are negative unless otherwise noted in the HPI PAST MEDICAL HISTORY: SVT status post ablation. Alcohol abuse PAST SURGICAL HISTORY: No surgical history. Status post ablation SOCIAL HISTORY: Nonsmoker. 10-12 drinks of vodka per day. Occasional marijuana use FAMILY HISTORY: Noncontributory EXAMINATION General Appearance: Alert, no distress, mildly diaphoretic Head: normocephalic, atraumatic Eyes: Pupils equal and round, no conjunctival pallor or injection. EOMs intact. ENT, Mouth: Mucous membranes moist. Uvula midline. Airway patent Neck: Normal inspection, supple, non-tender Respiratory: Lungs are clear to auscultation. No wheezing, rhonchi or crackles Cardiovascular: Tachycardic rate. Regular rhythm. No murmur. Pulses intact distally symmetrically Gastrointestinal: Abdomen is soft and nontender. No tympany rigidity. Neurological: Cranial nerves 2-12 grossly intact. GCS 15. A&O, nonfocal, no tremor. No pronator drift. No dysmetria. Strength is symmetric in all 4 limbs. Normal mental status. Skin: Warm and dry, no rash. No petechiae or purpura Extremities: Nontender, no pedal edema Psychiatric: Flat affect. Denies suicidal ideation. Denies homicidal ideation DIFFERENTIAL DIAGNOSES: Including but not limited to alcoholism, alcohol withdrawal, alcohol abuse, depression, bipolar disorder, schizophrenia, schizoaffective MDM: 5:15 p.m. Alcohol abuse with concerns for withdrawal. Last intake of alcohol was 2-3 hours ago. He is tachycardic and mildly diaphoretic. He is not tachypneic. He is not delirious or encephalopathic. He is not hyperthermic. He is not appear to be in DTs. Does have a history of SVT status post ablation, thus I have ordered a media monitor and an EKG. His mother, who works here as an RN in [employer] [facility], requested that the patient be evaluated for possible inpatient placement. At this time is not suicidal and does not exhibit any symptoms that warrant an M1 hold, but I have ordered laboratory studies to proceed with medical clearance and psychiatric evaluation. 6:20 p.m. Laboratory studies reveal very mild hypoglycemia. The patient will be given food to eat we will recheck his blood sugar. Laboratory studies are thus far negative with a blood alcohol level of 376. This is too high for mental health evaluation at this time. His mother has concern for the need for evaluation, despite him not meeting criteria for an M1 hold. I would like to keep him in the department to provide medication to prevent withdrawals in to allow him to sober up for evaluation. He is agreeable with this plan. I have discussed the case with Dr. Thomas. 7:40 p.m. Patient re-evaluated. His mother is at bedside. She is a RN. She is the convenience store manager of [employer] [facility]. She expresses concern of the patient leaving and she feels that he is not being completely forthcoming with thus about his bipolar disorder. I have filled out a detainer due to this. He has agreed to stay throughout the evening for us to hydrate him , administer Ativan and to provide mental health evaluation when his blood alcohol level is within acceptable limits. 9:00 p.m. Patient re-evaluated. Resting comfortably in no acute distress. 11:00 p.m. Patient re-evaluated. He is sleeping with stable vital signs. Tachycardia has nearly completely resolved. 12:20 a.m. Patient re-evaluated. He is sleeping. Heart rate is 103 beats per minute. Charge nurse informs me that he is to be evaluated by [facility] within the next 1-2 hours. 2:05 a.m. Patient still awaiting mental health evaluation. At this time I have discussed the case with Dr. Mccormick. She will assume care of the patient. Please see her note for final disposition. (Ervin Dickinson) Constitutional: Initial Vital Signs Temperature (C) 98.6 F 11/09/16 17:02 Heart Rate 120 H 11/09/16 17:02 Respiratory Rate 14 11/09/16 17:02 Blood Pressure 142/111 H 11/09/16 17:02 O2 Sat (%) 97 11/09/16 17:02 O2 Delivery Mode Nasal Cannula O2 (L/minute) 2 Allergies/Adverse Reactions: diltiazem Allergy (Mild, Verified 09/05/16 15:16) rash/hives Home Medications: Medication Instructions Recorded Famotidine [Pepcid 20 MG (OTC)] 20 mg PO DAILY #30 tab 09/05/16 oxyCODONE IR [Oxycodone Ir (*)] 5 - 10 mg PO Q6 PRN #20 tab 09/05/16 Medical Decision Making ED Course/Re-evaluation: 3:56 a.m.-The patient was seen by the mental health worker. We [facility]. The family has been given information on detox centers and will make some calls in the next few days with hopes for inpatient detox. (Candace Mccormick) This patient was seen and examined by me. He is an alcoholic and he presents with alcohol intoxication. Alert, pleasant and cooperative, chest CTA, CV-RRR. He is willing to go to the [facility]. His mother would like him to go into inpatient rehab. (Diana Thomas) - Data Points Laboratory Results: Laboratory Results 11/09/16 17:30 11/09/16 17:30 Medications Given: Discontinued Medications Chlordiazepoxide (Librium 25 Mg Prepack#6) 1 btl TAKEHOME EDNOW ONE Stop: 11/10/16 03:26 Last Admin: 11/10/16 03:43 Dose: 1 btl Chlordiazepoxide HCl (Librium) 25 mg PO EDNOW ONE Stop: 11/09/16 17:16 Last Admin: 11/09/16 17:25 Dose: 25 mg Sodium Chloride (Ns) 1,000 mls @ 0 mls/hr IV EDNOW ONE; Wide Open PRN Reason: Protocol Stop: 11/09/16 17:16 Last Admin: 11/09/16 17:35 Dose: 1,000 mls Sodium Chloride (Ns) 1,000 mls @ 0 mls/hr IV ONCE ONE; Wide Open PRN Reason: Protocol Stop: 11/09/16 19:48 Last Admin: 11/09/16 19:55 Dose: 1,000 mls Ibuprofen (Motrin) 600 mg PO EDNOW ONE Stop: 11/09/16 19:17 Last Admin: 11/09/16 19:16 Dose: 600 mg Lorazepam (Ativan Injection) 1 mg IVP EDNOW ONE Stop: 11/09/16 17:16 Last Admin: 11/09/16 17:35 Dose: 1 mg Lorazepam (Ativan Injection) 1 mg IVP EDNOW ONE Stop: 11/09/16 19:13 Last Admin: 11/09/16 19:24 Dose: 1 mg Lorazepam (Ativan Injection) 1 mg IVP EDNOW ONE Stop: 11/09/16 19:48 Last Admin: 11/09/16 19:56 Dose: 1 mg Departure - Departure Disposition: Home, Routine, Self-Care Clinical Impression: Alcoholism Condition: Good Instructions: [place] (By mouth), Bipolar Disorder (ED), Alcohol Intoxication ( ED), Alcohol Dependence (ED) Referrals: Patient,NotPresent [Primary Care Provider] - As per Instructions [facility] [Clinic] - As per Instructions Morales Campuzano MD [Medical Doctor] - As per Instructions
--- NOTE | 2016-11-09 17:25 | CPEKG ---
Heart Rate: 101 RR Interval: 594 P-R Interval: 156 QRSD Interval: 92 QT Interval: 352 QTC Interval: 457 P [place]: 71 QRS [place]: 93 T Wave [place]: 34 EKG Severity - OTHERWISE NORMAL ECG - EKG Impression: SINUS TACHYCARDIA EKG Impression: BORDERLINE RIGHT AXIS DEVIATION EKG Impression: ST ELEV, PROBABLE NORMAL EARLY REPOL PATTERN Electronically Signed By: Lissett Harris 09-Nov-2016 21:35:22
[2016-11-09 17:42] LABS: % IMMATURE GRANULYOCYTES 0.4 % (0.0-1.1); ABSOLUTE IMMATURE GRANULOCYTES 0.03 10^3/uL (0.00-0.10); ADD DIFF? NO; ADD MORPH? NO; ADD SCAN? NO; ATYPICAL LYMPHOCYTE FLAG 20 (0-99); FRAGMENT RBC FLAG 0 (0-99); HEMATOCRIT 50.4 % (40.0-51.0); HEMOGLOBIN 17.5 g/dL (13.7-17.5); LEFT SHIFT FLG 0 (0-99); LIPEMIA HEMOLYSIS FLAG 90 (0-99); MEAN CELL HEMOGLOBIN 33.3 pg (27.9-34.1); MEAN CELL HEMOGLOBIN CONCENTR. 34.7 g/dL (32.4-36.7); MEAN CELL VOLUME 95.8 fL (81.5-99.8); MEAN PLATELET VOLUME 11.1 fL (8.7-11.7); PLATELET CLUMPS FLAG 10 (0-99); PLATELET COUNT 297 10^3/uL (150-400); RED BLOOD CELL COUNT 5.26 10^6/uL (4.40-6.38); RED CELL DISTRIBUTION WIDTH 12.5 % (11.5-15.2)
[2016-11-09 18:04] LABS: ANION GAP 27 mEq/L (8-16); CALCIUM 9.9 mg/dL (8.5-10.4); CARBON DIOXIDE 16 mEq/l (22-31); CHLORIDE 99 mEq/L (97-110); CREATININE 0.9 mg/dL (0.7-1.3); GLOMERULAR FILTRATION RATE > 60; GLUCOSE 69 mg/dL (70-100); POTASSIUM 4.3 mEq/L (3.5-5.2); SODIUM 142 mEq/L (134-144)
[2016-11-09 18:18] LABS: ETHANOL SERUM 329 mg/dL (0-10)
[2016-11-09] MEDS ORDERED: IBUPROFEN 600 MG TAB PO ONE ×2 (19:15→19:16)
[2016-11-09 22:22] VITALS: BP 131/71; PULSE 109; RESP 16; O2SAT 97
[2016-11-10] MEDS ORDERED: CHLORDIAZEPOXIDE 25MG PREPK#6 BTL TAKEHOME ONE (03:25)
== END 2016-11-10 04:15 | disposition home or self-care (01) ==
DX: F10.20 Alcohol dependence, uncomplicated (principal); E86.9 Volume depletion, unspecified
CPT/HCPCS: 80305; 96374; G0480; J2060

== ENCOUNTER 2017-01-21 07:56 | Emergency (ER) | payer OTHER ==
[2017-01-21 08:03] VITALS: BP 133/80; PULSE 87; RESP 18; TEMP 98.1; O2SAT 97
== END 2017-01-21 08:10 | disposition left against medical advice (07) ==
DX: Z53.21 Procedure and treatment not carried out due to patient leaving prior to being seen by health care provider (principal)

== ENCOUNTER 2017-04-02 16:14 | Emergency (ER) | payer OTHER ==
[2017-04-02] MEDS ORDERED: ONDANSETRON 4 MG/2 ML VIAL IVP ONE (16:33)
[2017-04-02] MEDS ORDERED: LORazepam 2 MG/ML INJ IVP ONE (16:41)
[2017-04-02] MEDS ORDERED: NS 1,000 ML IV ONE ×2 (16:41→17:03)
--- NOTE | 2017-04-02 16:44 | EDPHY ---
H & P Smoking Status: Current every day smoker Time Seen by Provider: 04/02/17 16:28 HPI/ROS: CHIEF COMPLAINT: Vomiting, chest pain HISTORY OF PRESENT ILLNESS: 26-year-old male presents to the emergency department with nausea and vomiting. Patient has a known history of alcoholism. He has been sober and then started drinking alcohol again. His last drink of alcohol was about 3 days ago. He has never had an alcohol withdrawal related seizure. He also has a history of SVT and had an ablation done by Dr. Ralf Gonzales in April of 2016. Patient has not had any problems with SVT since his ablation. He does have some mild pain in his chest. He feels mildly short of breath. He feels nauseous and has been vomiting. No diarrhea. He really has no other abdominal pain. No back pain. No reported trauma. He denies any other illicit drug use. REVIEW OF SYSTEMS: Constitutional: No fever, no chills. Eyes: No double or blurry vision. ENT: No sore throat. Respiratory: No cough, no shortness of breath. Cardiac: No chest pain. Gastrointestinal: Vomiting. No diarrhea. No abdominal pain. Genitourinary: No dysuria. Musculoskeletal: No neck or back pain. Skin: No rashes. Neurological: No headache. (Alina Garcias) Past Medical/Surgical History: SVT with ablation April 2016 (BelkisAlina stewart) Social History: Single and lives in [place] with his girlfriend (Zoya Garciasrina Lucille) Physical Exam: General Appearance: Alert, no distress. Afebrile. Eyes: Pupils equal and round. Extraocular motions are all intact. ENT: Mouth: Mucous membranes appears dry. Respiratory: No wheezing, rhonchi, or rales, lungs are clear to auscultation. Cardiovascular: Regular rate and rhythm. Tachycardic. Gastrointestinal: Abdomen is soft and nontender, no masses, no rebound or guarding, bowel sounds normal. Neurological: Alert and oriented x 3, cranial nerves II through XII grossly intact Skin: Warm and dry, no rashes. Musculoskeletal: Nontender to palpate along the cervical, thoracic or lumbar spine. Neck is supple. Extremities: Full range of motion and no peripheral edema. Psychiatric: Patient is oriented X 3, there is no agitation. (Alina Garcias) Constitutional: Initial Vital Signs Temperature (C) 36.4 C 04/02/17 16:22 Heart Rate 99 04/02/17 16:22 Respiratory Rate 16 04/02/17 16:22 Blood Pressure 145/89 H 04/02/17 16:22 O2 Sat (%) 98 04/02/17 16:22 O2 Delivery Mode Room Air Allergies/Adverse Reactions: diltiazem Allergy (Mild, Verified 04/02/17 16:29) rash/hives Home Medications: Medication Instructions Recorded traZODone 04/02/17 Medical Decision Making - Diagnostics Imaging: I viewed and interpreted images myself - Diagnostics EKG Interpretation: EKG reveals normal sinus rhythm. This was interpreted by Dr. José Antonio Trevino. See interpretation in trace master. (Alina Garcias) Imaging Results: Imaging Impressions Chest X-Ray 04/02/17 16:45 Impression: No acute findings in the chest. ED Course/Re-evaluation: 26-year-old male presents to the emergency department the with chest pain and vomiting. The patient states that he is in alcohol withdrawal. His last drink was 3 days ago. He has never had alcohol withdrawal related seizure. He feels nauseous. He denies abdominal pain. He has had intermittent chest pain and difficulty breathing. He has a history of SVT with ablation 1 year ago. Patient had IV established and was given 2 L of IV normal saline. He was also given 4 mg of IV Zofran 1 mg of Ativan IV. Upon discharge, the patient was feeling much better. He was tolerating p.o. Fluids. His chest pain had resolved. Laboratory studies reveal elevated hemoglobin and hematocrit likely from dehydration. His blood sugar was elevated to nearly 200 which is likely because he states that just prior to coming to the hospital, he "chugged cranberry juice". Patient was encouraged to have this recheck with his primary care provider. EKG reveals normal sinus rhythm. Troponin was negative. Case was discussed with Dr. José Antonio Trevino, secondary supervising physician, who did not directly evaluate the patient but agrees with treatment and plan. He did evaluate the patient's EKG which appears unchanged from previous. (Alina Garcias) Differential Diagnosis: Including but not limited to dehydration, alcohol withdrawal, electrolyte abnormality, myocardial ischemia, pulmonary embolus, chest wall pain, pleural inflammation and pulmonary infectious causes. (Alina Garcias) - Data Points Laboratory Results: Laboratory Results 04/02/17 16:24 04/02/17 16:24 04/02/1718 04/02/17 16:24 16:24 16:24 WBC 3.75 10^3/uL L 10^3/uL (3.80-9.50) RBC 5.37 10^6/uL 10^6/uL (4.40-6.38) Hgb 18.1 g/dL H g/dL (13.7-17.5) Hct 51.9 % H % (40.0-51.0) MCV 96.6 fL fL (81.5-99.8) MCH 33.7 pg pg (27.9-34.1) MCHC 34.9 g/dL g/dL (32.4-36.7) RDW 15.3 % H % (11.5-15.2) Plt Count 189 10^3/uL 10^3/uL (150-400) MPV 10.3 fL fL (8.7-11.7) Neut % (Auto) 67.0 % % (39.3-74.2) Lymph % (Auto) 21.3 % % (15.0-45.0) [place] % (Auto) 6.9 % % (4.5-13.0) Eos % (Auto) 1.1 % % (0.6-7.6) Baso % (Auto) 3.2 % H % (0.3-1.7) Nucleat RBC Rel Count 0.0 % % (0.0-0.2) Absolute Neuts (auto) 2.51 10^3/uL 10^3/uL (1.70-6.50) Absolute Lymphs (auto) 0.80 10^3/uL L 10^3/uL (1.00-3.00) Absolute Monos (auto) 0.26 10^3/uL L 10^3/uL (0.30-0.80) Absolute Eos (auto) 0.04 10^3/uL 10^3/uL (0.03-0.40) Absolute Basos (auto) 0.12 10^3/uL H 10^3/uL (0.02-0.10) Absolute Nucleated RBC 0.00 10^3/uL 10^3/uL (0-0.01) Immature Gran % 0.5 % % (0.0-1.1) Immature Gran # 0.02 10^3/uL 10^3/uL (0.00-0.10) Sodium 143 mEq/L mEq/L (135-145) Potassium 3.9 mEq/L mEq/L (3.5-5.2) Chloride 100 mEq/L mEq/L (97-110) Carbon Dioxide 16 mEq/l L mEq/l (22-31) Anion Gap 27 mEq/L H mEq/L (8-16) BUN 11 mg/dL mg/dL (7-23) Creatinine 0.8 mg/dL mg/dL (0.7-1.3) Estimated GFR > 60 Glucose 196 mg/dL H mg/dL (70-100) Calcium 9.5 mg/dL mg/dL (8.5-10.4) Troponin I < 0.012 ng/mL ng/mL (0.000-0.034) Medications Given: Discontinued Medications Sodium Chloride (Ns) 1,000 mls @ 0 mls/hr IV ONCE ONE PRN Reason: Wide Open Stop: 04/02/17 16:42 Last Admin: 04/02/17 17:08 Dose: 1,000 mls Sodium Chloride (Ns) 1,000 mls @ 0 mls/hr IV ONCE ONE PRN Reason: Wide Open Stop: 04/02/17 17:04 Last Admin: 04/02/17 17:12 Dose: 1,000 mls Lorazepam (Ativan Injection) 1 mg IVP EDNOW ONE Stop: 04/02/17 16:42 Last Admin: 04/02/17 17:08 Dose: 1 mg Ondansetron HCl (Zofran) 4 mg IVP EDNOW ONE Stop: 04/02/17 16:34 Last Admin: 04/02/17 16:36 Dose: 4 mg Departure - Departure Disposition: Home, Routine, Self-Care Clinical Impression: Dehydration Chest pain Qualifiers: Chest pain type: unspecified Qualified Code(s): R07.9 - Chest pain, unspecified Vomiting Qualifiers: Vomiting type: unspecified Vomiting Intractability: non-intractable Nausea presence: with nausea Qualified Code(s): R11.2 - Nausea with vomiting, unspecified Condition: Good Instructions: Chest Pain (ED), Acute Nausea and Vomiting (ED) Additional Instructions: Clear liquids and then slowly advance diet as tolerated. Referrals: DR SATISH [Other] - As per Instructions [facility] 24 Hours [Outside] - As per Instructions
[2017-04-02 16:47] LABS: PLATELET COUNT 189 10^3/uL (150-400)
--- NOTE | 2017-04-02 16:52 | CPEKG ---
Heart Rate: 96 RR Interval: 625 P-R Interval: 156 QRSD Interval: 98 QT Interval: 348 QTC Interval: 440 P [place]: 78 QRS [place]: 83 T Wave [place]: 43 EKG Severity - ABNORMAL ECG - EKG Impression: SINUS RHYTHM EKG Impression: PROBABLE LEFT VENTRICULAR HYPERTROPHY EKG Impression: ST ELEV, PROBABLE NORMAL EARLY REPOL PATTERN Electronically Signed By: José Antonio Trevino 02-Apr-2017 20:04:11
[2017-04-02 20:09] VITALS: BP 132/76; PULSE 106; RESP 18; TEMP 98.8; O2SAT 93
== END 2017-04-02 20:08 | disposition home or self-care (01) ==
DX: R07.9 Chest pain, unspecified (principal); R11.2 Nausea with vomiting, unspecified; E86.0 Dehydration
CPT/HCPCS: 96374; J2060; J2405

== ENCOUNTER 2017-12-03 17:06 | Inpatient (IN) | payer OTHER ==
[2017-12-03] MEDS ORDERED: HYDROmorphONE/DILAUDID 2 MG/ML INJ IVP ONE (17:52)
[2017-12-03] MEDS ORDERED: FAMOTIDINE 20 MG/NACL 50 ML IV ONE (17:52)
[2017-12-03] MEDS ORDERED: NS 1,000 ML IV ONE ×2 (17:52→18:02)
[2017-12-03] MEDS ORDERED: ONDANSETRON 4 MG/2 ML VIAL IVP ONE (17:52)
[2017-12-03 17:59] LABS: PLATELET COUNT 84 10^3/uL (150-400)
--- NOTE | 2017-12-03 18:02 | EDPHY ---
H & P Time Seen by Provider: 12/03/17 17:30 HPI/ROS: HPI Nausea, vomiting, diarrhea, abdominal pain. 27-year-old male by private vehicle. He reports that since yesterday he has had periumbilical abdominal pain described as cramping and burning with nausea and multiple episodes of nonbilious nonbloody vomiting followed by dry heaving through today. He also describes having several episodes of watery diarrhea. No bloody or melenic stool. He denies any abdominal surgical history. He denies any foreign travel. No ill contacts. No change in diet. He reports that he has not been able to keep any food down today. He has been able to keep some liquids down. He reports his last drink of alcohol was last night. He does have a history of alcohol abuse. ROS: Constitutional: No fever, no chills. No weakness. Eyes: No discharge. No changes in vision. ENT: No sore throat. No nasal congestion or rhinorrhea. Respiratory: No cough. No shortness of breath. Cardiac: No chest pain, no palpitations. Gastrointestinal: As above. Genitourinary: No hematuria. No dysuria or increased frequency with urination. Musculoskeletal: No back pain. No neck pain. No myalgias or arthralgias. Skin: No rashes. Neurological: No headache. No focal weakness or altered sensation. Past medical history: Alcohol abuse, anxiety, bipolar, ablation for SVT. Social history: Alcohol abuse. Denies smoking. Works at a hotel. Here by himself. Physical Exam: General Appearance: Alert, he appears uncomfortable but not in distress. This patient is responding to questions appropriately and in full sentences. This patient appears well-hydrated and well-nourished. Eyes: Pupils equal and round no pallor or injection. No lid edema, erythema or injection. Respiratory: There are no retractions, lungs are clear to auscultation with good air movement bilaterally. Cardiovascular: Regular rate and rhythm. No murmur. Gastrointestinal: Abdomen tender on palpation over the periumbilical area, he has voluntary guarding, no masses, bowel sounds normal. No focal tenderness at McBurney's point. No Constantino sign. Neurological: Motor sensory function is grossly intact. Cranial nerves are normal. Gait is normal. Skin: Warm and dry, no rashes. Musculoskeletal: Neck is supple and nontender. Extremities are symmetrical. All joints range without pain or impingement. Psychiatric: No agitation. No depression. Database: EKG: EKG time is 5:28 p.m.; EKG shows a narrow complex normal sinus rhythm with a ventricular rate of 93. Left ventricular hypertrophy noted. Early repolarization pattern noted. The [place], QRS, QT intervals are within normal limits. There are no ST-T wave changes indicative of ischemic or injury pattern. No evidence of right heart strain. Interpreted by me. Imaging: CT scan of abdomen and pelvis with IV contrast: The appendix is visualized and is normal. The patient has severe pancreatic inflammation with fluid surrounding the pancreas and fluid tracking down the pericolic gutters. He also has an extremely fatty liver. The ductal system appears unremarkable. The gallbladder wall appears slightly thickened. Results discussed with staff radiologist Dr. Primitivo Brandon. Procedures: Emergency department course: Triage vital signs reviewed. He is tachycardic at 1:15 a.m.. Blood pressure is normal. He is afebrile. IV was placed. He was placed on a bus monitor. An EKG and troponin were obtained from triage. I do not know why this was done. He will be given 1-2 L of IV normal saline over the next 1-2 hours. He will initially be given 0.5 mg of IV hydromorphone for pain, 4 mg of IV Zofran for nausea and 20 mg of IV Pepcid. CT imaging to be obtained to evaluate for possible appendicitis. 7:00 p.m., the patient was re-evaluated. He is much more comfortable at this time. He is watching T V. Repeat abdominal exam he is soft with vague tenderness in the mid epigastric area on palpation. Results of his diagnostic workup discussed with him. I have ordered a right upper quadrant ultrasound on him as well to further evaluate his liver and ductal system. He will be admitted to the hospitalist service. This was discussed with him. He endorses. All of his questions were answered. He will be given additional IV hydromorphone at 0.5 mg as needed for pain. 7:30 p.m., spoke with hospitalist Dr. Soto Garcia. Case discussed with him in detail. Patient accepted for admission to the hospitalist service. Ultrasound of right upper quadrant pending on admission to the floor. The hospitalist service will follow up on the results of this study. Differential Diagnosis: The differential diagnosis on this patient includes but is not limited to food borne illness, viral gastroenteritis, appendicitis. This represents a partial list of diagnoses considered. These considerations are based on history, physical exam, past history, reassessment and diagnostic testing. Smoking Status: Current every day smoker Constitutional: Initial Vital Signs Temperature (C) 36.5 C 12/03/17 17:15 Heart Rate 115 H 12/03/17 17:15 Respiratory Rate 24 H 12/03/17 17:15 Blood Pressure 137/96 H 12/03/17 17:15 O2 Sat (%) 99 12/03/17 17:15 O2 Delivery Mode Room Air Allergies/Adverse Reactions: diltiazem Allergy (Mild, Verified 12/03/17 17:13) rash/hives Home Medications: Medication Instructions Recorded Naltrexone 12/03/17 Medical Decision Making - Diagnostics Imaging Results: Imaging Impressions Abdomen CT 12/03/17 17:53 Impression: 1. Marked hepatomegaly and hepatic steatosis. 2. Suspect pancreatitis evidenced by diffuse peripancreatic edema and small volume free fluid tracking down bilateral paracolic gutters and into the pelvis. 3. Suspect gastritis. No evidence of gastric ulcer or perforation. 4. Normal appendix. 5. Gallbladder sludge versus inspissated bile. No biliary dilation. 6. Left nephrolithiasis. Findings discussed with Emergency Department physician, Dawson Harris MD at 12/03/2017 18:45. - Data Points Laboratory Results: Laboratory Results 12/03/17 17:30 12/03/17 17:30 12/03/17 12/03/17 12/03/17 17:33 17:30 17:30 WBC 7.33 10^3/uL 10^3/uL (3.80-9.50) RBC 4.68 10^6/uL 10^6/uL (4.40-6.38) Hgb 16.1 g/dL g/dL (13.7-17.5) Hct 43.1 % % (40.0-51.0) MCV 92.1 fL fL (81.5-99.8) MCH 34.4 pg H pg (27.9-34.1) MCHC 37.4 g/dL H g/dL (32.4-36.7) RDW 13.9 % % (11.5-15.2) Plt Count 84 10^3/uL L 10^3/uL (150-400) MPV 12.5 fL H fL (8.7-11.7) Neut % (Auto) 66.6 % % (39.3-74.2) Lymph % (Auto) 15.4 % % (15.0-45.0) [place] % (Auto) 16.8 % H % (4.5-13.0) Eos % (Auto) 0.0 % L % (0.6-7.6) Baso % (Auto) 0.7 % % (0.3-1.7) Nucleat RBC Rel Count 0.0 % % (0.0-0.2) Absolute Neuts (auto) 4.88 10^3/uL 10^3/uL (1.70-6.50) Absolute Lymphs (auto) 1.13 10^3/uL 10^3/uL (1.00-3.00) Absolute Monos (auto) 1.23 10^3/uL H 10^3/uL (0.30-0.80) Absolute Eos (auto) 0.00 10^3/uL L 10^3/uL (0.03-0.40) Absolute Basos (auto) 0.05 10^3/uL 10^3/uL (0.02-0.10) Absolute Nucleated RBC 0.00 10^3/uL 10^3/uL (0-0.01) Immature Gran % 0.5 % % (0.0-1.1) Immature Gran # 0.04 10^3/uL 10^3/uL (0.00-0.10) Sodium 135 mEq/L mEq/L (135-145) Potassium 3.2 mEq/L L mEq/L (3.3-5.0) Chloride 88 mEq/L L mEq/L (97-110) Carbon Dioxide 20 mEq/l L mEq/l (22-31) Anion Gap 27 mEq/L H mEq/L (6-14) BUN 15 mg/dL mg/dL (7-23) Creatinine 0.8 mg/dL mg/dL (0.7-1.3) Estimated GFR > 60 Glucose 75 mg/dL mg/dL (70-100) Calcium 9.6 mg/dL mg/dL (8.5-10.4) Total Bilirubin 2.5 mg/dL H mg/dL (0.1-1.4) Conjugated Bilirubin 1.4 mg/dL H mg/dL (0.0-0.5) Unconjugated Bilirubin 1.1 mg/dL mg/dL (0.0-1.1) AST 301 IU/L H IU/L (17-59) ALT 247 IU/L H IU/L (21-72) Alkaline Phosphatase 78 IU/L IU/L (38-126) POC Troponin I 0.02 ng/mL ng/mL (0.00-0.08) Total Protein 7.2 g/dL g/dL (6.3-8.2) Albumin 4.8 g/dL g/dL (3.5-5.0) Lipase 92118 IU/L H IU/L (23-300) Medications Given: Discontinued Medications Hydromorphone HCl (Dilaudid) 0.5 mg IVP EDNOW ONE Stop: 12/03/17 17:53 Last Admin: 12/03/17 18:07 Dose: 0.5 mg Sodium Chloride (Ns) 1,000 mls @ 0 mls/hr IV EDNOW ONE; Wide Open PRN Reason: Protocol Stop: 12/03/17 17:53 Last Admin: 12/03/17 18:06 Dose: 1,000 mls Famotidine/Sodium Chloride (Pepcid 20 Mg (Premix)) 50 mls @ 200 mls/hr IV EDNOW ONE Stop: 12/03/17 18:06 Last Admin: 12/03/17 18:06 Dose: 50 mls Sodium Chloride (Ns) 1,000 mls @ 0 mls/hr IV EDNOW ONE; Wide Open PRN Reason: Protocol Stop: 12/03/17 18:03 Last Admin: 12/03/17 19:15 Dose: 1,000 mls Ondansetron HCl (Zofran) 4 mg IVP EDNOW ONE Stop: 12/03/17 17:53 Last Admin: 12/03/17 18:07 Dose: 4 mg Point of Care Test Results: Chemistry 12/03/17 17:33 POC Troponin I 0.02 ng/mL ng/mL (0.00-0.08) Departure - Departure Disposition: [facility] Acute Clinical Impression: Abdominal pain, Vomiting and diarrhea, Pancreatitis, Hyperbilirubinemia, Transaminitis, Alcoholic hepatitis Condition: Fair
[2017-12-03] MEDS ORDERED: IOPAMIDOL (ISOVUE-300) 100 ML BTL ONE (18:08)
--- NOTE | 2017-12-03 20:38 | GHP ---
DATE OF ADMISSION: 12/03/2017 CHIEF COMPLAINT: Back pain and nausea, vomiting. HISTORY OF PRESENT ILLNESS: This is a 27-year-old male with history of SVT, status post ablation, as well as alcohol abuse. He reports sobriety over the past 3 months. He presents to the emergency department today with back pain and vomiting. The patient does endorse drinking 2-3 beers on Saturday night. Early Saturday morning he awoke with pain in "both of his kidneys" as well as vomiting. He denies any fevers or chills. His vomitus is described as yellow bile. He denies any bloody emesis or coffee-grounds emesis. He has had some indigestion over the past couple of weeks. He states that his stools have been very dark in color but without blood. PAST MEDICAL HISTORY: 1. SVT ablation. 2. Alcohol abuse, on naltrexone for the past 3 months. 3. Alcohol withdrawal. HOME MEDICATIONS: Naltrexone. ALLERGIES: Diltiazem causes a rash. SOCIAL HISTORY: The patient lives in [place] with his mother and grandmother. He has been largely sober over the past 3 months but did have 2-3 beers this past Saturday. He smokes 2-3 cigarettes per day. FAMILY HISTORY: Significant for kidney failure in his mother. REVIEW OF SYSTEMS: Comprehensive 10-point review of systems was done and was negative except for as mentioned in HPI. PHYSICAL EXAM: VITAL SIGNS: Blood pressure 147/98, pulse of 88, respiratory rate 20, O2 saturation 93% on room air. Temperature afebrile. GENERAL: No acute distress. HEAD: Normocephalic, atraumatic. EYES: PERRLA. Sclerae anicteric. NECK: Supple. No lymphadenopathy. CARDIOVASCULAR: S1, S2. No JVD. No lower extremity edema. PULMONARY: Lungs are clear. No wheezes, rales , or rhonchi. ABDOMEN: Mildly distended. Normoactive bowel sounds. Overall soft but does have some tenderness to palpation in all 4 quadrants. There is no rebound tenderness or guarding. EXTREMITIES: No clubbing, cyanosis, or edema. NEURO: Cranial nerves 2-12 grossly intact. There is slight resting tremor. SKIN: Clear. Slight jaundice. DIAGNOSTICS: WBC 7.33, hemoglobin 16.1, hematocrit 43.1, platelets 84. Sodium 135, potassium 3.2, chloride 88, CO2 20, BUN 15, creatinine 0.8, glucose 75, total bilirubin 2.5, conjugated bilirubin 1.4, AST 301, ALT 247. Troponin was negative. Lipase is 10,234. CT abdomen and pelvis shows marked hepatomegaly and hepatic steatosis with suspected pancreatitis, with diffuse peripancreatic edema and small volume free fluid tracking down bilateral pericolic gutters and into the pelvis; suspicion for gastritis; normal appendix; gallbladder sludge versus inspissated bile; left nephrolithiasis. Kidneys were homogeneously enhanced except for 2 small foci of decreased attenuation superior and posterior mid left kidney. ASSESSMENT AND PLAN: This is a 27-year-old male presenting with back pain and vomiting consistent with: 1. Ethanol-induced acute pancreatitis. Plan: In the patient's history, he reported to me that he drank 2-3 beers on Saturday but after reviewing his labs I suspect he is minimizing his alcohol consumption. This must be addressed with the patient in the morning. For now, he will be placed on n.p.o. and treated with aggressive IV hydration, IV pain medications, and antiemetics. Opioids are contraindicated in the setting of current naltrexone use. Will consult pharmacy to see what are options are. Tylenol is relatively contraindicated given his liver disease, and Nsaids are contraindicated given gastritis. 2. Hypokalemia. Plan: Replace per protocol. 3. Transaminitis, most likely due to acute alcoholic pancreatitis. Plan: Check Tylenol level and screen for hepatitis. 4. Suspected alcohol-induced gastritis with reported melena. Plan: The patient will be started on a proton pump inhibitor. I will ask my colleagues to consider Gastroenterology consultation as indicated. 5. The patient will be admitted to the hospital. Full code status. /[id number]/MODL MTDD
[2017-12-03] MEDS ORDERED: NALTREXONE HCL 50 MG TAB PO SCH (21:00)
[2017-12-03] MEDS ORDERED: PROTOCOL MAGNESIUM 1 DOSE IV PRN (21:02)
[2017-12-03] MEDS ORDERED: PROTOCOL POTASSIUM 1 DOSE MISC PRN (21:02)
[2017-12-03] MEDS ORDERED: PROMETHAZINE HCL 25 MG/ML INJ IVP PRN (21:03)
[2017-12-03] MEDS ORDERED: ONDANSETRON 4 MG/2 ML VIAL IVP PRN (21:03)
[2017-12-03] MEDS ORDERED: FLUMAZENIL 0.5 MG/5 ML MDV IVP PRN (21:07)
[2017-12-03] MEDS ORDERED: LORazepam 2 MG/ML INJ IVP PRN (21:08)
[2017-12-03] MEDS ORDERED: NS 1,000 ML IV SCH (21:15)
[2017-12-03] MEDS: PANTOPRAZOLE SODIUM 40 MG VIAL IVP SCH (21:47)
[2017-12-03] MEDS: THIAMINE HCL 500 MG in NS 100 ML IV SCH (21:49)
[2017-12-03] MEDS: POTASSIUM Cl (KCl) 100 ML IV SCH ×3 (22:24→23:57)
[2017-12-04] MEDS: LORazepam 2 MG/ML INJ IVP PRN ×5 (00:29→23:16)
[2017-12-04] MEDS: D50W 25 GM/50 ML SYR IVP PRN ×2 (00:57→06:50)
[2017-12-04] MEDS: D5W 1/2 NS W/ 20 KCl/L 1,000 ML IV SCH ×2 (01:15→13:58)
[2017-12-04 05:18] LABS: PLATELET COUNT 65 10^3/uL (150-400)
[2017-12-04 05:25] LABS: INR 1.07 (0.83-1.16); PROTIME(PATIENT) 14.1 SEC (12.0-15.0)
[2017-12-04] MEDS ORDERED: MAGNESIUM SULF 1 GM/DEXTROSE 100 ML IV ONE (06:51)
[2017-12-04 07:34] LABS: HEPATITIS A ANTIBODY IGM (BCH) NEGATIVE (NEGATIVE); HEPATITIS B CORE AB IGM NEGATIVE (NEGATIVE); HEPATITIS B SURFACE ANTIGEN NEGATIVE (NEGATIVE); HEPATITIS C ANTIBODY TOTAL NEGATIVE (NEGATIVE)
[2017-12-04] MEDS: NICOTINE 14 MG/24 HR PATCH TD SCH (08:03)
[2017-12-04] MEDS: PANTOPRAZOLE SODIUM 40 MG VIAL IVP SCH ×2 (08:03→20:26)
--- NOTE | 2017-12-04 09:37 | PDMN ---
Medical Necessity Medical necessity: Pt meets inpt criteria per MD order and MCG M-250, Pancreatitis, 2 days. 27 y/o presented w/back pain and vomiting consistent with ethanol-induced pancreatitis w/lipase 10,234, Abd US shows pancreatitis, CT abd shows marked hepatomegaly and hepatic steatosis w/suspected pancreatitis, hypokalemic w/potassium 3.2 on admission, magnesium 1.0, tachycardic this AM. Pt has hx alcohol abuse and alcohol WD, on Naltrexone for past 3 months, SVT ablation. NPO over night, IVF, IV antiemetics, IV PPI, IV Mg sulfate and Thiamine, CIWA protocol, GI consult if needed. Anticipate>2MN for management of acute pancreatitis.
[2017-12-04] MEDS: THIAMINE HCL 500 MG in NS 100 ML IV SCH (10:19)
--- NOTE | 2017-12-04 12:10 | ASMTCMCOM ---
CM Note CM Note Notes: Pt admitted for etoh induced pancreatitis. He lives at home with his mother, he has been sober for 3 months but did drink on Saturday. Pt has a CIWA of 5, CM to follow up with him about resources, he is otherwise independent. DC Plan: Independent Date Signed: 12/04/2017 12:10 PM Electronically Signed By:Marisela Hill RN
--- NOTE | 2017-12-04 15:22 | HOSPPROG ---
Hospitalist Progress Note Assessment/Plan: The patient is a 27-year-old male who was admitted for alcohol-induced pancreatitis. ASSESSMENT/PLAN: Acute pancreatitis, alcohol-induced Hypomagnesemia SVT, status post ablation Alcohol abuse History of alcohol withdrawal Tobacco dependence -Pt denies drinking a lot of alcohol before pancreatitis started, but admits he binge-drank last weekend. -Recommend that pt stop drinking alcohol altogether as pancreatitis is very dangerous and often fatal. -Increased rate of fluids as pt was very volume depleted today despite receiving 3L IVF in ED last night. IVF will need to be adjusted in AM. -Request CM give pt resources for alcohol cessation. -NPO diet, but ok for ice chips/sips of water. -prn antiemetics, analgesia -Replace mag, potassium as needed. -Check AM labs. VTE prophylaxis: SCDs. Code Status: Full code Status: Inpatient for greater than 2 midnight stay. Disposition: Med surg ____ SUBJECTIVE: Patient was seen this morning and evening. Denied pain. Denies drinking alcohol regularly. Admits he did binge drink last weekend. OBJECTIVE: Physical Exam: General: The patient is a male who is awake and in no acute distress. HEENT: normocephalic, extraocular movements intact, conjunctivae clear. Mucous membranes dry. Neck: trachea midline, no visible masses. Abd: soft and nondistended. +tenderness to mild palpation in mid epigastrium. Musculoskeletal: Normal muscle tone/bulk. Neuro: cranial nerves II XII grossly intact. Intact gross motor and sensory function. Psych: Appropriate mood and appropriate affect. Skin: No pallor. No petechiae. Heme/lymph: No peripheral edema at bilateral lower extremities. Labs/Imaging/Other Tests: Personally reviewed/interpreted. Objective: Vital Signs Temp Pulse Resp BP Pulse Ox 36.8 C 131 H 32 H 145/88 H 94 12/04/17 11:54 12/04/17 11:54 12/04/17 11:54 12/04/17 11:54 12/04/17 11:54 Laboratory Results 12/04/17 05:04 12/04/17 05:04 12/03/17 12/04/17 12/05/17 05:59 05:59 05:59 Intake Total 1000 Output Total 425 350 Balance 575 -350 PT 14.1 SEC (12.0-15.0) 12/04/17 05:04 INR 1.07 (0.83-1.16) 12/04/17 05:04 - Time Spent With Patient Time Spent with Patient: greater than 35 minutes Time Spent with Patient: Greater than 35 minutes spent on this patients care, greater than 50% of time spent counseling, educating, and coordinating care regarding the above mentioned plan. ICD10 Worksheet Patient Problems: Problems Problem Status Onset Abdominal pain Acute Alcoholic hepatitis Acute Hyperbilirubinemia Acute Pancreatitis Acute Transaminitis Acute Vomiting and diarrhea Acute Alcohol withdrawal Acute Atrial fibrillation and flutter Acute V tach Acute
[2017-12-04] MEDS ORDERED: CEPACOL LOZENGE PO PRN (19:26)
[2017-12-04] MEDS: POTASSIUM Cl (KCl) 100 ML IV SCH ×2 (20:26→23:10)
[2017-12-04] MEDS ORDERED: MAGNESIUM SULF 2 GM/WATER 50 ML IV SCH (23:00)
[2017-12-04] MEDS ORDERED: LR 1,000 ML IV SCH (23:45)
[2017-12-04] MEDS ORDERED: MAGNESIUM SULF 2 GM/WATER 50 ML IV ONE (23:59)
[2017-12-05] MEDS: LORazepam 2 MG/ML INJ IVP PRN ×5 (04:44→22:45)
[2017-12-05 06:33] LABS: PLATELET COUNT 45 10^3/uL (150-400)
[2017-12-05] MEDS: NICOTINE 14 MG/24 HR PATCH TD SCH (08:37)
[2017-12-05] MEDS: PANTOPRAZOLE SODIUM 40 MG VIAL IVP SCH ×2 (08:37→20:59)
[2017-12-05] MEDS: THIAMINE HCL 500 MG in NS 100 ML IV SCH (08:38)
[2017-12-05] MEDS: MAGNESIUM OXIDE 400 MG TAB PO SCH (08:38)
[2017-12-05] MEDS: D5W 1/2 NS W/ 20 KCl/L 1,000 ML IV SCH ×2 (09:52→19:40)
--- NOTE | 2017-12-05 10:58 | HOSPPROG ---
Hospitalist Progress Note Assessment/Plan: 27 yo M w alcoholism, acute pancreatitis, alcoholic hepatitis, mild alcohol withdrawal pancreatitis: hungry- trial of lcear liquids no necrosis on ct alcohol withdrawal: still tremulous and tachycardic continue ciwa give librium 50 X 1 alcoholic hepatitis: transaminases improving llow discriminant function proph: ambulatory dispo: inpt Subjective: hungry. improved abdmoninal pain. denies etoh withdrawal, tachycardia noted. ct images reviewed/interpreted by me Objective: Vital Signs Temp Pulse Resp BP Pulse Ox 36.9 C 106 H 12 140/86 H 94 12/05/17 09:42 12/05/17 09:42 12/05/17 08:00 12/05/17 09:42 12/05/17 09:42 Laboratory Results 12/05/17 05:22 12/05/17 05:22 12/04/17 12/05/17 12/06/17 05:59 05:59 05:59 Intake Total 1000 0 Output Total 425 925 650 Balance 575 -925 -650 PT 14.1 SEC (12.0-15.0) 12/04/17 05:04 INR 1.07 (0.83-1.16) 12/04/17 05:04 - Physical Exam Constitutional: no apparent distress, appears nourished Eyes: PERRL, anicteric sclera Ears, Nose, Mouth, Throat: moist mucous membranes, hearing normal Cardiovascular: regular rate and rhythym, no murmur, rub, or gallop Respiratory: no respiratory distress, no rales or rhonchi Gastrointestinal: normoactive bowel sounds, No guarding, No rebound, No distension Genitourinary: no bladder fullness, No souza in urethra Skin: warm, normal color Musculoskeletal: full muscle strength, no muscle tenderness ICD10 Worksheet Patient Problems: Problems Problem Status Onset Abdominal pain Acute Alcoholic hepatitis Acute Hyperbilirubinemia Acute Pancreatitis Acute Transaminitis Acute Vomiting and diarrhea Acute Alcohol withdrawal Acute Atrial fibrillation and flutter Acute V tach Acute
[2017-12-05] MEDS ORDERED: chlordiazePOXIDE 25 MG CAP PO ONE (10:59)
[2017-12-05] MEDS: POTASSIUM Cl (KCl) 100 ML IV SCH ×2 (11:57→19:03)
[2017-12-05] MEDS ORDERED: POTASSIUM Cl (KCl) 100 ML IV ONE (17:30)
[2017-12-06] MEDS: D5W 1/2 NS W/ 20 KCl/L 1,000 ML IV SCH (05:18)
[2017-12-06 05:31] LABS: PLATELET COUNT 54 10^3/uL (150-400)
[2017-12-06] MEDS: PANTOPRAZOLE SODIUM 40 MG VIAL IVP SCH (08:57)
[2017-12-06] MEDS: NICOTINE 14 MG/24 HR PATCH TD SCH (08:57)
[2017-12-06] MEDS: MAGNESIUM OXIDE 400 MG TAB PO SCH (08:57)
[2017-12-06] MEDS ORDERED: MAGNESIUM SULF 1 GM/DEXTROSE 100 ML IV ONE (09:08)
[2017-12-06] MEDS ORDERED: chlordiazePOXIDE 25 MG CAP PO ONE (09:22)
--- NOTE | 2017-12-06 09:25 | HOSPPROG ---
Hospitalist Progress Note Assessment/Plan: 27 yo M w alcoholism, acute pancreatitis, alcoholic hepatitis, mild alcohol withdrawal pancreatitis: hungry- improved ADAT alcohol withdrawal: still tremulous and tachycardic continue ciwa give librium 50 X 1 better today can go home alcoholic hepatitis: transaminases improving low discriminant function proph: ambulatory dispo: home today > 30 minutes Subjective: ate w no pain. less tachycardic Objective: Vital Signs Temp Pulse Resp BP Pulse Ox 36.9 C 90 16 135/85 H 96 12/06/17 07:10 12/06/17 07:10 12/06/17 07:10 12/06/17 07:10 12/06/17 07:10 Laboratory Results 12/06/17 04:48 12/06/17 04:48 12/05/17 12/06/17 12/07/17 05:59 05:59 05:59 Intake Total 0 1650 Output Total 925 3150 Balance -925 -1500 PT 14.1 SEC (12.0-15.0) 12/04/17 05:04 INR 1.07 (0.83-1.16) 12/04/17 05:04 - Physical Exam Constitutional: no apparent distress, appears nourished Eyes: PERRL, anicteric sclera Ears, Nose, Mouth, Throat: moist mucous membranes, hearing normal Cardiovascular: regular rate and rhythym, no murmur, rub, or gallop Respiratory: no respiratory distress, no rales or rhonchi Gastrointestinal: normoactive bowel sounds, soft, non-tender abdomen Genitourinary: no bladder fullness, No souza in urethra Skin: warm, normal color Musculoskeletal: full muscle strength Neurologic: AAOx3 ICD10 Worksheet Patient Problems: Problems Problem Status Onset Abdominal pain Acute Alcoholic hepatitis Acute Hyperbilirubinemia Acute Pancreatitis Acute Transaminitis Acute Vomiting and diarrhea Acute Alcohol withdrawal Acute Atrial fibrillation and flutter Acute V tach Acute
--- NOTE | 2017-12-06 09:33 | ASDISCHSUM ---
Discharge Information Plan Status:Home with No Needs Medically Cleared to Leave: Discharge Date: CM D/C Disposition:Home, Routine, Self-Care ADT D/C Disposition: Projected Discharge Date: Transportation at D/C:Family Discharge Delay Reason: Follow-Up Date: Discharge Slot: Final Diagnosis: Placement Information Patient Contact Information Contact Name:NORBERTO Relationship:Mother Address:[address] City:[place] Phone: State/Zip Code:[place] [address] Email: Financial Information Financial Class:[employer] Primary Plan Desc:[facility] Primary Plan Number:[id number] Secondary Plan Desc: Secondary Plan Number: Assessment Information LACE LACE Length of stay for Answers: 2 days current admission Acuity / Level of Answers: Yes Care: Did the patient have an inpatient admission? Comorbidities - select Answers: Other Notes: Hx of SVT all that apply # of Emergency department Answers: 1-2 visits in the last 6 months Social determinants Answers: History of substance abuse (ETOH, street drugs, prescription drugs, etc.) Mental health diagnosis (anxiety, depression, pers onality disorders, etc.) Score: 13 Date Signed: 12/06/2017 09:32 AM Electronically Signed By:Ludmila Baldwin [facility] CM Progress Note CM Note CM Note Notes: Pt admitted for etoh induced pancreatitis. He lives at home with his mother, he has been sober for 3 months but did drink on Saturday. Pt has a CIWA of 5, CM to follow up with him about resources, he is otherwise independent. DC Plan: Independent Date Signed: 12/04/2017 12:10 PM Electronically Signed By:Marisela Hill RN [facility] CM Progress Note CM Note CM Note Notes: CM met with pt to discuss alcohol abuse . Pt not eager to speak about his drinking. Responses were minimal and somewhat defensive; "I just had 2-3 drinks". He declined resources stating that he had been in rehab last year ([facility]) and had them; he also stated his mother was finding him a therapist. He shared that he takes Naltrexone; it is prescribed by his PCP. CM will follow for changes. There are no other CM needs identified. CM will follow for changes. D/C Plan: Independent. Date Signed: 12/06/2017 09:31 AM Electronically Signed By:Ludmila Baldwin Intervention Information
--- NOTE | 2017-12-06 11:13 | GDS ---
DISCHARGE DIAGNOSES: 1. Alcoholic pancreatitis. 2. History of alcohol abuse. On naltrexone. 3. Alcoholism. HOSPITAL COURSE: Please see admission history and physical by Dr. Soto Garcia. The patient presented with abdominal pain and vomiting after recent alcohol use. He suggested he only had 2 or 3 beers th is past Saturday, but his transaminitis and alcohol withdrawal symptoms were strongly suggestive of oth erwise. He had moderate alcohol withdrawal while here. His transaminases trended toward normal. He was thro mbocytopenic without bleeding. Regarding his pancreatitis, he was n.p.o. for a couple of days, requiring IV pain meds. His diet was advanced which he tolerated. He is discharged home. He had no SVT while here. His thrombocytopenia is a new . /[id number]/MODL
[2017-12-06 11:58] VITALS: BP 135/84
[2017-12-06] MEDS ORDERED: THIAMINE HCL 100 MG TAB PO SCH (21:07)
== END 2017-12-06 17:02 | disposition home or self-care (01) | DRG 439 ==
LOC: F3E 19:57
PROVIDERS: ADMIT Family Medicine; ATTEND Internal Medicine
DX: K85.20 Alcohol induced acute pancreatitis without necrosis or infection (principal); F10.230 Alcohol dependence with withdrawal, uncomplicated; D69.6 Thrombocytopenia, unspecified; E87.6 Hypokalemia; E83.42 Hypomagnesemia; F17.200 Nicotine dependence, unspecified, uncomplicated
CPT/HCPCS: 84484-PO; 96365; G0472; G0480; J1170; J2060; J2405; J3411; J3475; J3480; Q9967

== ENCOUNTER 2018-01-26 19:37 | Inpatient (IN) | payer OTHER ==
--- NOTE | 2018-01-26 19:56 | EDPHY ---
HPI/HX/ROS/PE/MDM Narrative: CHIEF COMPLAINT: Fatigue, unable to eat/drink, dark urine and stool HISTORY OF PRESENT ILLNESS: The patient is a 27 y/o male with a history of alcoholism, reflux, and pancreatitis complaining of significant fatigue and loss of appetite for the last 3-4 days. He has associated decrease in urination , dark urine, dark-colored diarrhea, nausea, abdominal bloating, and every time he stands or tries to eat or drink he gets violent hiccups that sometimes cause vomiting. He's been sucking on ice cubes in an attempt to stay hydrated. He feels so weak he is having difficulty walking. No recent NSAID use. No history of ulcers. No fever, chills, chest pain, shortness of breath, palpitations, headache, lightheadedness, paresthesias, weakness. REVIEW OF SYSTEMS: Aside from elements discussed in the HPI, a comprehensive 10-point review of systems was reviewed and is negative. Baseline cough. PAST MEDICAL HISTORY: Alcoholism, pancreatitis, ablation for atrial fibrillation, reflux SOCIAL HISTORY: Mother at bedside. Daily smoker. Reports he has been sober since his admission in November and is currently on naltrexone. EP: Dr. Gonzales. VITAL SIGNS: Reviewed by me GENERAL: Well-developed, well-nourished, resting comfortably in no respiratory distress. HEENT: Atraumatic. Eyes: No icterus, no injection. Mouth: very dry mucous membranes with pharyngeal erythema. No lesions. Neck: supple with no adenopathy. LUNGS: Clear to auscultation bilaterally, no wheezes, rhonchi or rales. CARDIAC: Regular rate and rhythm, no rubs, murmurs or gallops. ABDOMEN: Mild diffuse erythema. Soft, mild diffuse tenderness, mild central distension. BACK: No CVA tenderness. EXTREMITIES: No trauma. No edema. Range of motion is normal throughout. NEURO: Alert and oriented, grossly nonfocal. SKIN: Warm and dry, no rash. PSYCHIATRIC: Normal mentation, no agitation. Portions of this note were transcribed by a medical lab director. I personally performed a history, physical exam, medical decision making, and confirmed accuracy of information the transcribed note. ED Course: This is a 27 y/o male with a history of alcoholic pancreatitis who presents with a 3-4-day history of fatigue and inability to eat with associated dark urine and stool and abdominal bloating. He has very dry mucous membranes, pharyngeal erythema, diffuse mild abdominal tenderness, and mild central abdominal distension. Presentation likely recurrent pancreatitis, alcohol- related, or infectious. Plan for IV, labs, UA, chest and abdomen x-rays, and symptom management. 1L IV NS ordered. Patient is complaining of reflux symptoms and requesting GI cocktail, which I' ve ordered along with a second liter of NS. X-rays negative. Lipase elevated at 786, but improved from prior admission for pancreatitis in November, when it was around 10,000. EtOH level 170. He is hyponatremic at 129 with an anion gap of 30, indicating alcoholic ketoacidosis. Reassessed patient and discussed findings. He admits to alcohol use but declines moonshine, antifreeze, other sources of methanol use. Spoke with hospitalist service. Dr. Tijerina accepts admission. Measured serum osmolarity is 316. Calculated osmolarity gap is 0.27. Doubt other alcohols are contributing to patients large anion gap. MDM: Diff dx considered included DKA, AKA, ingestion of other alcohols, pancreatitis , alcohol withdrawl, medication effects. - Data Points Imaging Results: Imaging Impressions Abdomen X-Ray 01/26/18 19:57 Impression: Normal. 2. Two Views of the Abdomen History: Abdominal pain. Recent pancreatitis. Findings: Scattered gas in the nondilated colon and stomach. There are no dilated loops, significant air-fluid levels, or free air identified. No abnormal calcifications are seen overlying the region of the pancreatic bed. There is no evidence for ascites. Retroperitoneal fat planes are intact. Impression: Negative. Chest X-Ray 01/26/18 19:57 Impression: Normal. 2. Two Views of the Abdomen History: Abdominal pain. Recent pancreatitis. Findings: Scattered gas in the nondilated colon and stomach. There are no dilated loops, significant air-fluid levels, or free air identified. No abnormal calcifications are seen overlying the region of the pancreatic bed. There is no evidence for ascites. Retroperitoneal fat planes are intact. Impression: Negative. Imaging: Discussed imaging studies w/ yard caller Radiologist, I viewed and interpreted images myself Laboratory Results: Laboratory Results 01/26/18 20:03 01/26/18 20:03 01/26/18 01/26/18 01/26/18 20:03 20:03 20:03 WBC RBC Hgb Hct MCV MCH MCHC RDW Plt Count MPV Neut % (Auto) Lymph % (Auto) [place] % (Auto) Eos % (Auto) Baso % (Auto) Nucleat RBC Rel Count Absolute Neuts (auto) Absolute Lymphs (auto) Absolute Monos (auto) Absolute Eos (auto) Absolute Basos (auto) Absolute Nucleated RBC Immature Gran % Immature Gran # PT 13.4 SEC SEC (12.0-15.0) INR 1.00 (0.83-1.16) Sodium 129 mEq/L L mEq/L (135-145) Potassium 3.8 mEq/L mEq/L (3.5-5.2) Chloride 80 mEq/L L mEq/L (97-110) Carbon Dioxide 19 mEq/l L mEq/l (22-31) Anion Gap 30 mEq/L H mEq/L (6-14) BUN 19 mg/dL mg/dL (7-23) Creatinine 0.6 mg/dL L mg/dL (0.7-1.3) Estimated GFR > 60 Glucose 90 mg/dL mg/dL (70-100) Serum Osmolality 316 mosmo/kg H mosmo/kg (280-297) Calcium 10.1 mg/dL mg/dL (8.5-10.4) Total Bilirubin 1.8 mg/dL H mg/dL (0.1-1.4) Conjugated Bilirubin 1.3 mg/dL H mg/dL (0.0-0.5) Unconjugated Bilirubin 0.5 mg/dL mg/dL (0.0-1.1) AST 236 IU/L H IU/L (17-59) ALT 109 IU/L H IU/L (21-72) Alkaline Phosphatase 104 IU/L IU/L (38-126) Troponin I < 0.012 ng/mL ng/mL (0.000-0.034) Total Protein 7.2 g/dL g/dL (6.3-8.2) Albumin 4.6 g/dL g/dL (3.5-5.0) Lipase 786 IU/L H IU/L (23-300) Ethyl Alcohol 170 mg/dL H mg/dL (0-10) 01/26/18 20:03 WBC 8.21 10^3/uL 10^3/uL (3.80-9.50) RBC 4.20 10^6/uL L 10^6/uL (4.40-6.38) Hgb 15.4 g/dL g/dL (13.7-17.5) Hct 41.6 % % (40.0-51.0) MCV 99.0 fL fL (81.5-99.8) MCH 36.7 pg H pg (27.9-34.1) MCHC 37.0 g/dL H g/dL (32.4-36.7) RDW 13.0 % % (11.5-15.2) Plt Count 131 10^3/uL L 10^3/uL (150-400) MPV 11.7 fL fL (8.7-11.7) Neut % (Auto) 72.6 % % (39.3-74.2) Lymph % (Auto) 12.1 % L % (15.0-45.0) [place] % (Auto) 12.2 % % (4.5-13.0) Eos % (Auto) 0.2 % L % (0.6-7.6) Baso % (Auto) 1.1 % % (0.3-1.7) Nucleat RBC Rel Count 0.0 % % (0.0-0.2) Absolute Neuts (auto) 5.96 10^3/uL 10^3/uL (1.70-6.50) Absolute Lymphs (auto) 0.99 10^3/uL L 10^3/uL (1.00-3.00) Absolute Monos (auto) 1.00 10^3/uL H 10^3/uL (0.30-0.80) Absolute Eos (auto) 0.02 10^3/uL L 10^3/uL (0.03-0.40) Absolute Basos (auto) 0.09 10^3/uL 10^3/uL (0.02-0.10) Absolute Nucleated RBC 0.00 10^3/uL 10^3/uL (0-0.01) Immature Gran % 1.8 % H % (0.0-1.1) Immature Gran # 0.15 10^3/uL H 10^3/uL (0.00-0.10) PT INR Sodium Potassium Chloride Carbon Dioxide Anion Gap BUN Creatinine Estimated GFR Glucose Serum Osmolality Calcium Total Bilirubin Conjugated Bilirubin Unconjugated Bilirubin AST ALT Alkaline Phosphatase Troponin I Total Protein Albumin Lipase Ethyl Alcohol Medications Given: Discontinued Medications Al Hydroxide/Mg Hydroxide (Maalox Susp) 30 ml PO ONCE ONE Stop: 01/26/18 20:51 Last Admin: 01/26/18 20:51 Dose: 30 ml Hyoscyamine Sulfate (Levsin, Hyomax-Sl) 0.25 mg PO ONCE ONE Stop: 01/26/18 20:51 Last Admin: 01/26/18 20:51 Dose: 0.25 mg Sodium Chloride (Ns) 1,000 mls @ 0 mls/hr IV ONCE ONE; Wide Open PRN Reason: Protocol Stop: 01/26/18 19:58 Last Admin: 01/26/18 20:18 Dose: 1,000 mls Sodium Chloride (Ns) 1,000 mls @ 0 mls/hr IV ONCE ONE; Wide Open PRN Reason: Protocol Stop: 01/26/18 20:56 Last Admin: 01/26/18 20:55 Dose: 1,000 mls Lidocaine (Lidocaine 2% Viscous) 15 ml PO ONCE ONE Stop: 01/26/18 20:51 Last Admin: 01/26/18 20:51 Dose: 15 ml General Time Seen by Provider: 01/26/18 19:42 Initial Vital Signs: Initial Vital Signs Temperature (C) 36.7 C 01/26/18 19:48 Heart Rate 115 H 01/26/18 19:48 Respiratory Rate 22 H 01/26/18 19:48 Blood Pressure 144/109 H 01/26/18 19:48 O2 Sat (%) 98 01/26/18 19:48 O2 Delivery Mode Room Air Allergies/Adverse Reactions: diltiazem Allergy (Mild, Verified 01/26/18 19:54) rash/hives Home Medications: Medication Instructions Recorded Naltrexone HCl 50 mg PO HS 12/03/17 Departure - Departure Disposition: [facility] Acute Clinical Impression: Alcoholic ketoacidosis Pancreatitis Qualifiers: Chronicity: acute Pancreatitis type: alcohol induced Acute pancreatitis complication: unspecified Qualified Code(s): K85.20 - Alcohol induced acute pancreatitis without necrosis or infection Alcohol intoxication Qualifiers: Complication of substance-induced condition: uncomplicated Qualified Code(s): F10.920 - Alcohol use, unspecified with intoxication, uncomplicated Condition: Fair Report Scribed for: Lissett Harris Report Scribed by: Manjula Black Date of Report: 01/26/18 Time of Report: 20:52
[2018-01-26] MEDS ORDERED: NS 1,000 ML IV ONE ×2 (19:57→20:55)
[2018-01-26 20:14] LABS: PLATELET COUNT 131 10^3/uL (150-400)
[2018-01-26 20:21] LABS: PROTIME(PATIENT) 13.4 SEC (12.0-15.0)
[2018-01-26] MEDS ORDERED: MAG HYDROX/AL HYDROX/SIMETH 30 ML UDCUP ONE (20:48)
[2018-01-26] MEDS ORDERED: HYOSCYAMINE SULFATE 0.125 MG TAB ONE (20:48)
[2018-01-26] MEDS ORDERED: LIDOCAINE 2% VISCOUS 15 ML UDCUP ONE (20:48)
[2018-01-26] MEDS ORDERED: HYOSCYAMINE SULFATE 0.125 MG TAB PO ONE (20:50)
[2018-01-26] MEDS ORDERED: MAG HYDROX/AL HYDROX/SIMETH 30 ML UDCUP PO ONE (20:50)
[2018-01-26] MEDS ORDERED: LIDOCAINE 2% VISCOUS 15 ML UDCUP PO ONE (20:50)
[2018-01-26] MEDS ORDERED: LORazepam 2 MG/ML INJ IVP ONE (21:55)
[2018-01-26] MEDS ORDERED: FLUMAZENIL 0.5 MG/5 ML MDV IVP PRN (21:56)
[2018-01-26] MEDS ORDERED: PROMETHAZINE HCL 25 MG/ML INJ IVP PRN (21:58)
[2018-01-26] MEDS ORDERED: NS 1,000 ML IV SCH (22:00)
[2018-01-26] MEDS: PANTOPRAZOLE SODIUM 40 MG VIAL IVP SCH (22:40)
[2018-01-26] MEDS: NS 1,000 ML IV SCH (22:41)
--- NOTE | 2018-01-26 22:47 | GHP ---
DATE OF ADMISSION: 01/26/2018 CHIEF COMPLAINT: Abdominal pain. HISTORY: The patient is a 27-year-old male with a history of alcohol pancreatitis 1 time in the past . He had successfully quit alcohol but fell off the wagon approximately 1 week ago. He is now prese nting with recurrent left upper quadrant pain exactly like his last episode of pancreatitis. For 4 d ays, he has been unable to eat anything at all. He cannot even drink water. He has severe acid refl ux with severe hiccups. The pain radiates to his back. He has had nausea and vomiting. He has had some blood in his vomitus. He has had diarrhea. PAST MEDICAL HISTORY: 1. Alcoholism with previous alcohol withdrawal. 2. Alcohol pancreatitis. 3. SVT, status post ablation. MEDICATIONS: Please see computerized record for full detailed list. ALLERGIES: Diltiazem. SOCIAL HISTORY: Quit smoking 3 weeks ago. Does still smoke marijuana sometimes. Quit alcohol but r elapsed 1 week ago. Currently drinking 8 ounces of vodka per day. He lives with his mom. 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 REVIEW OF SYSTEMS: Complete review of systems obtained. Review of systems negative regarding consti tutional, HEENT, GI, pulmonary, cardiovascular, , hematology, skin, musculoskeletal, endocrine, psy ch, except for positives and negatives as in HPI. FAMILY HISTORY: Reviewed, noncontributory to presenting complaint. PHYSICAL EXAMINATION: GENERAL: Well-developed, well-nourished male, in no acute distress. VITAL SI GNS: Temperature is 36.7, pulse 115 blood pressure 150/98, saturating 98% room air. EYES: Normal c onjunctivae. Pupils equal and reactive to light. ENT: Normal ears, nose. Hearing intact. Normal teeth. Oropharynx dry. NECK: Trachea midline. No thyromegaly. CHEST: Normal effort. LUNGS: Cl ear to auscultation bilaterally. CARDIOVASCULAR: Tachycardic. No murmur. No lower extremity edema . ABDOMEN: Soft. Positive left upper quadrant tenderness to palpation without rebound or guarding. No hepatosplenomegaly. SKIN: Warm, dry, intact, without rash. MUSCULOSKELETAL: No cyanosis or c lubbing. Strength 5/5 of upper and lower extremities. NEURO: Cranial nerves intact. Normal sensat ion to light touch. PSYCH: Alert and oriented x3. Normal mood and affect. Normal judgment. Mara l memory. LABORATORY DATA: White count 8.2, hematocrit 41.6, platelets 131. Sodium 129, potassium 3.8, chlori de 80, bicarb 19, BUN 19, creatinine 0.6, glucose is 90. His anion gap is 30. Lipase is 786. AST i s 236, ALT is 109, total bilirubin 1.8. MEDICAL RECORD REVIEW: He was recently hospitalized for another episode of alcoholic pancreatitis in November. At that time, he had a CT scan and abdominal ultrasound. They were only consistent with a cute pancreatitis. No biliary obstruction. No gallbladder disease. This case was personally discus sed with Dr. Lissett Harris, the emergency room physician, regarding ER course. ASSESSMENT/PLAN: 1. Acute alcohol pancreatitis. He just had an ultrasound and CT scan abdomen 2 months ago without a ny biliary pathology so I think this is most consistent with recurrence of alcohol pancreatitis and I do not see benefit to repeating imaging, unless he does not improve and we start to get concerned th at he may have developed a pseudocyst. Will keep him n.p.o., hydrate with IV fluids. He was advised for alcohol cessation. 2. Alcoholism. He has undergone withdrawal in the past. Will place him on CIWA protocol. 3. Lactic acid elevation. He has a very elevated anion gap of 30. I think this is mostly lactate. May also have an element of alcohol and starvation ketoacidosis. This is predominantly due to dehyd ration. I do not think he is septic. Will hydrate with IV fluids and recheck tomorrow. 4. Hematemesis. He likely has an element of erosive esophagitis and possibly Karina-Trevino tear. W e will start him empirically on IV proton pump inhibitor. 5. Supraventricular tachycardia, status post ablation. I believe that has not been an issue since t he ablation. Will watch him on equipment monitor phototypesetting due to his extreme tachycardia. ADMISSION STATUS: We will admit to inpatient. As he is quite sick on admission, anticipate greater than 2 midnights. DVT PROPHYLAXIS: Will hold off given his possible upper GI bleed. CORE STATUS: Full. /[id number]/MODL
[2018-01-26] MEDS: THIAMINE HCL 500 MG in NS 100 ML IV SCH (23:04)
--- NOTE | 2018-01-26 23:42 | CPEKG ---
Test Reason : OPEN Blood Pressure : / mmHG Vent. Rate : 103 BPM Atrial Rate : 105 BPM P-R Int : 150 ms QRS Dur : 098 ms QT Int : 336 ms P-R-T Axes : 101 080 017 degrees QTc Int : [address] elev, probable normal early repol pattern Confirmed by Lissett Harris ([id number]) on 01/26/2018 11:41:48 PM Referred By: Confirmed By:Lissett Harris
[2018-01-27 05:38] LABS: INR 1.13 (0.83-1.16); PROTIME(PATIENT) 14.7 SEC (12.0-15.0)
[2018-01-27 05:40] LABS: PLATELET COUNT 85 10^3/uL (150-400)
[2018-01-27] MEDS: HYDROmorphONE/DILAUDID 1 MG/ML INJ IVP PRN ×3 (06:37→20:14)
[2018-01-27] MEDS: NS 1,000 ML IV SCH ×3 (06:38→20:13)
--- NOTE | 2018-01-27 08:18 | PDMN ---
Medical Necessity Medical necessity: MCG M250 pancreatitis A-2 days: M595 liver disease complications acute abd pain with inability to maintain hydration, ETOH abuse , lactic acid elevation, hematemesis, supraventricular tachycardia, anticipate > 2 MN ongoing med nec care, further monitoring, eval and tx - pt will be NPO, IVF, IV thiamine, IV pain, IV antiemetics, IV protonix
[2018-01-27] MEDS: LORazepam 2 MG/ML INJ IVP PRN ×2 (08:20→22:20)
[2018-01-27] MEDS: PANTOPRAZOLE SODIUM 40 MG VIAL IVP SCH ×2 (08:20→20:14)
[2018-01-27] MEDS ORDERED: ENOXAPARIN 40 MG/0.4 ML SYR SC SCH (09:00)
[2018-01-27] MEDS: ONDANSETRON 4 MG/2 ML VIAL IVP PRN (10:55)
--- NOTE | 2018-01-27 11:50 | HOSPPROG ---
Hospitalist Progress Note Assessment/Plan: 27y male with c/o abd pain, diarrhea and withdrawl. First encounter, chart reviewed. #ETOH pancreatitis -per pt feels a bt better -advance to clear #ETOH withdrawl -CIWA -supportive care -high dose thiamine -D/W CM -needs resources #ETOH abuse -counseled -CM to see #CDIff -start vanco -precautions #Lactic acidosis -better with IVF -not septic -multifactorial -cont IVF #Hematemesis -resolved -stable H/H #Hx SVT -stable -hx of ablation #Electrolyte imbalance -replace #DVT proph -hold for now -start lovenox tomorrow if no further signs of bleeding Subjective: Feels terrible. Still having some discomfort. Feels hungry. Objective: Vital Signs Temp Pulse Resp BP Pulse Ox 36.5 C 103 H 22 H 136/84 H 97 01/27/18 08:00 01/27/18 08:00 01/27/18 08:00 01/27/18 08:00 01/27/18 08:00 Microbiology 01/27/18 06:00 Gastrointestinal Tract Panel (PCR) - Final Stool Clostridium Difficile Detected Laboratory Results 01/27/18 05:10 01/27/18 05:10 01/26/18 01/27/18 01/28/18 05:59 05:59 05:59 Intake Total 2000 Output Total 100 Balance 1900 PT 14.7 SEC (12.0-15.0) 01/27/18 05:10 INR 1.13 (0.83-1.16) 01/27/18 05:10 - Physical Exam Constitutional: appears nourished, uncomfortable, No obese Eyes: PERRL, anicteric sclera, EOMI Ears, Nose, Mouth, Throat: moist mucous membranes, hearing normal, ears appear normal Cardiovascular: tachycardia, No JVD, No edema Respiratory: no respiratory distress, no rales or rhonchi, reduced air movement Gastrointestinal: normoactive bowel sounds, No tenderness, No ascites Skin: warm, normal color, No mottled Musculoskeletal: normal joint ROM, no joint effusions, generalized weakness Neurologic: AAOx3 Psychiatric: interacting appropriately, not anxious, not encephalopathic, thought process linear ICD10 Worksheet Patient Problems: Problems Problem Status Onset Atrial fibrillation and flutter Acute Alcohol withdrawal Acute V tach Acute Abdominal pain Acute Vomiting and diarrhea Acute Pancreatitis Acute Hyperbilirubinemia Acute Transaminitis Acute Alcoholic hepatitis Acute Alcohol intoxication Acute Alcoholic ketoacidosis Acute
[2018-01-27] MEDS: VANCOMYCIN 125 MG/2.5 ML UDL PO SCH ×3 (11:51→20:19)
--- NOTE | 2018-01-27 16:20 | ASMTCASEMG ---
Living Arrangements What is your living Answers: With One Parent arrangement? Who do you live with? Type Of Residence What kind of residence do Answers: House you live in? Discharge Plan Comments Coordination Status Comments Notes: Patient is a 28yo single male with a hx of alcoholism who has been admitted for acute alcohol pancreatitis, alcoholism, lactic acid elevation, hematemesis, and supraventricular tachycardia. Patient was recently hospitalized for another episode of alcoholic pancreatitis in November. Patient quit alcohol but relapsed 1 week ago. Patient quit smoking 3 weeks ago. Patient still uses marijuana occasionally and lives with his mom. 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 Patient was given ETOH resources. He will most likely d/c independently. CM will follow. Date Signed: 01/27/2018 04:19 PM Electronically Signed By:Tamika Ramirez LCSW
[2018-01-27] MEDS ORDERED: MAG HYDROX/AL HYDROX/SIMETH 30 ML UDCUP PO PRN (16:21)
[2018-01-27] MEDS: HYOSCYAMINE SULFATE 0.125 MG TAB PO PRN (16:59)
[2018-01-27] MEDS: LIDOCAINE 2% VISCOUS 15 ML UDCUP PO PRN (16:59)
[2018-01-27] MEDS ORDERED: HYOSCYAMINE SULFATE 0.125 MG TAB PO ONE (21:47)
[2018-01-27] MEDS ORDERED: LIDOCAINE 2% VISCOUS 15 ML UDCUP PO ONE (21:47)
[2018-01-27] MEDS ORDERED: MAG HYDROX/AL HYDROX/SIMETH 30 ML UDCUP PO ONE (21:47)
[2018-01-27] MEDS: THIAMINE HCL 500 MG in NS 100 ML IV SCH (22:20)
[2018-01-28] MEDS: ONDANSETRON 4 MG/2 ML VIAL IVP PRN ×2 (02:43→07:01)
[2018-01-28] MEDS: LORazepam 2 MG/ML INJ IVP PRN ×7 (02:43→21:57)
[2018-01-28] MEDS: ACETAMINOPHEN 500 MG TAB PO PRN ×2 (02:43→17:10)
[2018-01-28] MEDS: NS 1,000 ML IV SCH ×2 (03:43→10:25)
[2018-01-28] MEDS: VANCOMYCIN 125 MG/2.5 ML UDL PO SCH ×4 (06:03→21:02)
[2018-01-28] MEDS: PANTOPRAZOLE SODIUM 40 MG VIAL IVP SCH ×2 (09:18→21:01)
[2018-01-28] MEDS ORDERED: PROTOCOL K PHOSPHATE 1 DOSE IV PRN (09:39)
[2018-01-28] MEDS ORDERED: PROTOCOL POTASSIUM 1 DOSE MISC PRN (09:41)
[2018-01-28] MEDS ORDERED: POTASSIUM CL 10 MEQ TAB PO ONE ×2 (10:22→19:28)
[2018-01-28] MEDS ORDERED: K PHOS 20 MMOL in D5W 250 ML IV ONE (12:00)
--- NOTE | 2018-01-28 13:08 | HOSPPROG ---
Hospitalist Progress Note Assessment/Plan: Kristen is a 27y male with c/o abd pain, diarrhea and withdrawal. First encounter , chart reviewed. * Acute alcohol pancreatitis -recent ultrasound and CT scan abdomen 2 months ago without any biliary pathology -tolerating regular diet without pain * Alcoholism -CIWA -has been drinking since he was a young teenager -says he drinks to avoid pressures in life -BAL 170 on admission -very concerned he will likely start drinking as soon as discharged -recommended he go to IP treatment if insurance is available -CM to talk w [facility] and see if there is any interest and see if this is a possibility -was here recently for same issue *alcoholic hepatitis -labs improved *c diff -unclear how he acquired this -having less loose stools today *underweight w a BMI of 19.6 *Lactic acid elevation -suspect from dehydration, high urine osmol -recheck labs in A.M. *electrolyte abnormalities -K phos protocol added -low Na *Hematemesis -PPI -none further *SVT -s/p ablation *Plan: he is still withdrawing during my interview, will need another midnight stay. Recheck labs in a.m. Subjective: Mich says he is feeling better since being admitted. Objective: Vital Signs Temp Pulse Resp BP Pulse Ox 36.8 C 93 20 127/84 H 97 01/28/18 12:45 01/28/18 12:45 01/28/18 12:45 01/28/18 12:45 01/28/18 12:45 Microbiology 01/27/18 06:00 Gastrointestinal Tract Panel (PCR) - Final Stool Clostridium Difficile Detected Laboratory Results 01/27/18 05:10 01/27/18 05:10 01/27/18 01/28/18 01/29/18 05:59 05:59 05:59 Intake Total 1999 950 Output Total 100 1475 725 Balance 1900 -525 -725 PT 14.7 SEC (12.0-15.0) 01/27/18 05:10 INR 1.13 (0.83-1.16) 01/27/18 05:10 - Physical Exam Constitutional: other (thin) Eyes: PERRL Ears, Nose, Mouth, Throat: hearing normal Cardiovascular: regular rate and rhythym, tachycardia Respiratory: no respiratory distress Gastrointestinal: soft, non-tender abdomen Skin: warm Musculoskeletal: generalized weakness Psychiatric: poor insight, poor judgement (he loses focus easily, gets confused w the call light being the phone), poor memory ICD10 Worksheet Patient Problems: Problems Problem Status Onset Alcohol intoxication Acute Alcoholic ketoacidosis Acute Pancreatitis Acute Abdominal pain Acute Alcohol withdrawal Acute Alcoholic hepatitis Acute Atrial fibrillation and flutter Acute Hyperbilirubinemia Acute Transaminitis Acute V tach Acute Vomiting and diarrhea Acute
[2018-01-28] MEDS: HYOSCYAMINE SULFATE 0.125 MG TAB PO PRN (14:17)
[2018-01-28] MEDS: HYDROmorphONE/DILAUDID 1 MG/ML INJ IVP PRN (15:24)
[2018-01-28] MEDS ORDERED: PROTOCOL MAGNESIUM 1 DOSE IV PRN (16:17)
--- NOTE | 2018-01-28 16:41 | ASMTCMCOM ---
CM Note CM Note Notes: Spoke with patient today to see if he would be interested in support and care with his alcohol problem when he leaves the hospital. Patient states he did the intensive outpatient program with [facility] and was inpatient with the [facility]. He feels they did not help and states his plan is to return to work and stay "focused" and busy. Mich states this has been the only plan that has worked in the past. Patient does not want to sign a release for his mother and does not want the hospital talking to her. He reports his mother is an alcoholic too and feels she is to blame for everything going on with him. He does live at home with his mother and grandmother and states he takes care of them. During the conversation, the patient suddenly became concerned that the picture on the wall was of his brother. (It is a picture of a dog) He also was hallucinating and thought he was back at home. Patient was not clear of mind though he appeared to be initially. Patient adamently states he does not want help with follow up care but this may change when he is completely through withdrawals. He did say he wants to get healthy and stop drinking but kept returning to "I can do it myself". CM will follow. Date Signed: 01/28/2018 04:41 PM Electronically Signed By:Tamika Ramirez LCSW
[2018-01-28] MEDS ORDERED: MAGNESIUM SULF 1 GM/DEXTROSE 100 ML IV ONE (18:08)
[2018-01-28] MEDS: DEXMEDETOMIDINE HCL 400 MCG in NS 100 ML IV SCH (19:25)
[2018-01-29] MEDS: THIAMINE HCL 500 MG in NS 100 ML IV SCH (00:08)
[2018-01-29] MEDS: LORazepam 2 MG/ML INJ IVP SCH ×4 (00:11→17:59)
[2018-01-29] MEDS: DEXMEDETOMIDINE HCL 400 MCG in NS 100 ML IV SCH ×2 (02:45→11:13)
[2018-01-29] MEDS: ONDANSETRON 4 MG/2 ML VIAL IVP PRN (04:59)
[2018-01-29] MEDS: VANCOMYCIN 125 MG/2.5 ML UDL PO SCH ×4 (04:59→20:30)
[2018-01-29] MEDS: LORazepam 2 MG/ML INJ IVP PRN ×2 (04:59→22:12)
[2018-01-29] MEDS: NS 1,000 ML IV SCH ×2 (05:00→18:47)
--- NOTE | 2018-01-29 09:28 | HOSPPROG ---
Hospitalist Progress Note Assessment/Plan: #Severe alcohol withdrawal: transfer to ICU last night[facility]; not interested in inpatient rehab again. Counseled on cessation #Acute alcohol pancreatitis -recent ultrasound and CT scan abdomen 2 months ago without any biliary pathology -tolerating regular diet without pain #alcoholic hepatitis -labs improved #C diff: vanc QID -unclear how he acquired this *underweight w a BMI of 19.6 *Lactic acidosis: resolved with IVFs #Hypokalemia: repleting #Hematemesis: due to excess Etoh. 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 Objective: Vital Signs Temp Pulse Resp BP Pulse Ox 36.5 C 67 22 H 114/84 H 96 01/29/18 04:00 01/29/18 08:00 01/29/18 08:00 01/29/18 08:00 01/29/18 08:00 Laboratory Results 01/27/18 05:10 01/29/18 04:41 01/28/18 01/29/18 01/30/18 05:59 05:59 05:59 Intake Total 950 2614 Output Total 1475 2225 Balance -525 389 PT 14.7 SEC (12.0-15.0) 01/27/18 05:10 INR 1.13 (0.83-1.16) 01/27/18 05:10 - Time Spent With Patient Time Spent with Patient: greater than 35 minutes Time Spent with Patient: Greater than 35 minutes spent on this patients care, greater than 50% of time spent counseling, educating, and coordinating care regarding the above mentioned plan. - Physical Exam Constitutional: no apparent distress, other (thin) Eyes: PERRL Ears, Nose, Mouth, Throat: moist mucous membranes Cardiovascular: regular rate and rhythym Respiratory: no respiratory distress Gastrointestinal: normoactive bowel sounds, No tenderness Genitourinary: No souza in urethra Skin: warm Musculoskeletal: full muscle strength Neurologic: AAOx3, CN II-XII Intact, other (tremulous, tongue fasiculations) Psychiatric: flat affect ICD10 Worksheet Patient Problems: Problems Problem Status Onset Alcohol intoxication Acute Alcoholic ketoacidosis Acute Pancreatitis Acute Abdominal pain Acute Alcohol withdrawal Acute Alcoholic hepatitis Acute Atrial fibrillation and flutter Acute Hyperbilirubinemia Acute Transaminitis Acute V tach Acute Vomiting and diarrhea Acute
[2018-01-29] MEDS ORDERED: POTASSIUM CL 10 MEQ TAB PO ONE ×2 (10:31→19:36)
[2018-01-29] MEDS ORDERED: MAGNESIUM SULF 1 GM/DEXTROSE 100 ML IV ONE (10:32)
[2018-01-29] MEDS: THIAMINE HCL 100 MG TAB PO SCH (10:41)
[2018-01-29] MEDS: PANTOPRAZOLE SODIUM 40 MG VIAL IVP SCH ×2 (10:41→20:30)
[2018-01-29] MEDS: ACETAMINOPHEN 500 MG TAB PO PRN (11:15)
[2018-01-29] MEDS: HYDROmorphONE/DILAUDID 1 MG/ML INJ IVP PRN (16:55)
[2018-01-30] MEDS: LORazepam 2 MG/ML INJ IVP SCH ×2 (00:43→05:36)
[2018-01-30] MEDS: VANCOMYCIN 125 MG/2.5 ML UDL PO SCH ×4 (05:37→21:17)
[2018-01-30] MEDS: NS 1,000 ML IV SCH (05:37)
[2018-01-30] MEDS ORDERED: POTASSIUM CL 10 MEQ TAB PO ONE (07:25)
[2018-01-30] MEDS: THIAMINE HCL 100 MG TAB PO SCH (07:41)
[2018-01-30] MEDS: PANTOPRAZOLE SODIUM 40 MG VIAL IVP SCH (07:42)
[2018-01-30] MEDS: LORazepam 2 MG/ML INJ IVP PRN ×3 (08:28→22:59)
[2018-01-30] MEDS: MAG HYDROX/AL HYDROX/SIMETH 30 ML UDCUP PO PRN ×2 (09:17→18:17)
[2018-01-30] MEDS ORDERED: MAGNESIUM SULF 2 GM/WATER 50 ML IV ONE (10:00)
[2018-01-30] MEDS ORDERED: MAGNESIUM SULF 1 GM/DEXTROSE 100 ML IV ONE ×2 (10:22→10:30)
[2018-01-30] MEDS ORDERED: CALCIUM CARBONATE 500 MG CHEWABLE TAB PO PRN (10:40)
--- NOTE | 2018-01-30 13:58 | HOSPPROG ---
Hospitalist Progress Note Assessment/Plan: #Severe alcohol withdrawal: -off Precedex. Add Librium, PRN Ativan -wants to speak with Marisela Church #Acute alcohol pancreatitis -recent ultrasound and CT scan abdomen 2 months ago without any biliary pathology -tolerating regular diet without pain #Alcoholic hepatitis -labs improved #C diff: vanc QID, Day 4 *Lactic acidosis: resolved with IVFs #Hypokalemia/hypomagnesium: repleting #Hematemesis: due to excess Etoh. 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 #Diet: regular #DVT ppx: low risk Disp: ICU admission for CIWA, precedex Subjective: mild epigastric pain, relieved with Maalox Objective: Vital Signs Temp Pulse Resp BP Pulse Ox 36.8 C 85 19 121/85 H 100 01/30/18 11:07 01/30/18 11:07 01/30/18 11:07 01/30/18 11:07 01/30/18 11:07 Laboratory Results 01/27/18 05:10 01/30/18 05:45 01/29/18 01/30/18 01/31/18 05:59 05:59 05:59 Intake Total 2614 3547 338 Output Total 2225 1800 635 Balance 389 1747 -297 PT 14.7 SEC (12.0-15.0) 01/27/18 05:10 INR 1.13 (0.83-1.16) 01/27/18 05:10 - Time Spent With Patient Time Spent with Patient: greater than 35 minutes Time Spent with Patient: Greater than 35 minutes spent on this patients care, greater than 50% of time spent counseling, educating, and coordinating care regarding the above mentioned plan. - Physical Exam Constitutional: no apparent distress, other (thin) Eyes: PERRL Ears, Nose, Mouth, Throat: moist mucous membranes Cardiovascular: regular rate and rhythym Respiratory: no respiratory distress Gastrointestinal: normoactive bowel sounds Genitourinary: no bladder fullness, No souza in urethra Skin: warm Musculoskeletal: full muscle strength Neurologic: AAOx3, CN II-XII Intact, other (tremulous, tongue fasiculations) Psychiatric: interacting appropriately ICD10 Worksheet Patient Problems: Problems Problem Status Onset Alcohol intoxication Acute Alcoholic ketoacidosis Acute Pancreatitis Acute Abdominal pain Acute Alcohol withdrawal Acute Alcoholic hepatitis Acute Atrial fibrillation and flutter Acute Hyperbilirubinemia Acute Transaminitis Acute V tach Acute Vomiting and diarrhea Acute
[2018-01-30] MEDS ORDERED: POTASSIUM CL 20 MEQ TAB PO ONE (20:06)
[2018-01-30] MEDS: PANTOPRAZOLE SODIUM 40 MG TAB PO SCH (21:21)
[2018-01-30] MEDS: chlordiazePOXIDE 25 MG CAP PO SCH (21:21)
[2018-01-31] MEDS: VANCOMYCIN 125 MG/2.5 ML UDL PO SCH ×4 (06:40→22:53)
[2018-01-31] MEDS ORDERED: POTASSIUM CL 10 MEQ TAB PO ONE (07:44)
[2018-01-31] MEDS ORDERED: MAGNESIUM SULF 1 GM/DEXTROSE 100 ML IV ONE (07:45)
--- NOTE | 2018-01-31 08:04 | HOSPPROG ---
Hospitalist Progress Note Assessment/Plan: #Severe alcohol withdrawal: -off Precedex. Add Librium, PRN Ativan -wants to quit. Met with Marisela Church and will talk with PCP about Campral for cessation #Acute alcohol pancreatitis -recent ultrasound and CT scan abdomen 2 months ago without any biliary pathology -tolerating regular diet without pain #Alcoholic hepatitis -labs improved #C diff: vanc QID, Day 5 *Lactic acidosis: resolved with IVFs #Hypokalemia/hypomagnesium/hypophosphatemia: still low, repleting #Hematemesis: due to excess Etoh. 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 Hope to DC in 1-2 day Subjective: had 2 BMs, slightly formed Objective: Vital Signs Temp Pulse Resp BP Pulse Ox 37.0 C 87 22 H 114/74 96 01/30/18 20:00 01/31/18 04:00 01/31/18 04:00 01/31/18 04:00 01/31/18 04:00 Laboratory Results 01/27/18 05:10 01/31/18 05:05 01/30/18 01/31/18 02/01/18 05:59 05:59 05:59 Intake Total 3547 3589 Output Total 1800 1835 Balance 1747 1754 PT 14.7 SEC (12.0-15.0) 01/27/18 05:10 INR 1.13 (0.83-1.16) 01/27/18 05:10 - Time Spent With Patient Time Spent with Patient: greater than 35 minutes Time Spent with Patient: Greater than 35 minutes spent on this patients care, greater than 50% of time spent counseling, educating, and coordinating care regarding the above mentioned plan. - Physical Exam Constitutional: no apparent distress Eyes: PERRL Ears, Nose, Mouth, Throat: moist mucous membranes Cardiovascular: regular rate and rhythym Respiratory: no respiratory distress Gastrointestinal: normoactive bowel sounds, soft, non-tender abdomen Genitourinary: no bladder fullness Musculoskeletal: generalized weakness Neurologic: CN II-XII Intact, other (mildly tremulous) Psychiatric: interacting appropriately, not encephalopathic ICD10 Worksheet Patient Problems: Problems Problem Status Onset Alcohol intoxication Acute Alcoholic ketoacidosis Acute Pancreatitis Acute Abdominal pain Acute Alcohol withdrawal Acute Alcoholic hepatitis Acute Atrial fibrillation and flutter Acute Hyperbilirubinemia Acute Transaminitis Acute V tach Acute Vomiting and diarrhea Acute
[2018-01-31] MEDS: chlordiazePOXIDE 25 MG CAP PO SCH ×3 (08:26→22:53)
[2018-01-31] MEDS: PANTOPRAZOLE SODIUM 40 MG TAB PO SCH (08:26)
[2018-01-31] MEDS: THIAMINE HCL 100 MG TAB PO SCH (08:26)
[2018-01-31] MEDS ORDERED: K PHOS 10 MMOL in D5W 250 ML IV ONE (09:00)
[2018-01-31] MEDS: LIDOCAINE 2% VISCOUS 15 ML UDCUP PO PRN (09:22)
[2018-01-31] MEDS: MAG HYDROX/AL HYDROX/SIMETH 30 ML UDCUP PO PRN ×3 (09:22→17:55)
[2018-01-31] MEDS: ONDANSETRON 4 MG/2 ML VIAL IVP PRN (11:33)
--- NOTE | 2018-01-31 16:08 | ASMTCMCOM ---
CM Note CM Note Notes: Patient met with Marisela Church and will talk with PCP about campral for cessation. D/C plan is independent at this time. CM available if d/c needs arise. Date Signed: 01/31/2018 04:07 PM Electronically Signed By:Tamika Ramirez LCSW
[2018-01-31] MEDS ORDERED: ZOLPIDEM TARTRATE 5 MG TAB PO ONE (23:11)
[2018-02-01] MEDS: VANCOMYCIN 125 MG/2.5 ML UDL PO SCH ×3 (06:43→15:43)
[2018-02-01] MEDS ORDERED: POTASSIUM CL 10 MEQ TAB PO ONE (07:50)
[2018-02-01] MEDS ORDERED: MAGNESIUM SULF 1 GM/DEXTROSE 100 ML IV ONE (07:51)
[2018-02-01] MEDS: THIAMINE HCL 100 MG TAB PO SCH (08:37)
[2018-02-01] MEDS: chlordiazePOXIDE 25 MG CAP PO SCH ×2 (08:38→15:43)
[2018-02-01] MEDS ORDERED: PANTOPRAZOLE SODIUM 40 MG TAB PO SCH (09:00)
[2018-02-01 11:49] VITALS: BP 128/83
--- NOTE | 2018-02-01 15:49 | ASDISCHSUM ---
Discharge Information Plan Status:Home with No Needs Medically Cleared to Leave:01/31/2018 Discharge Date:01/31/2018 CM D/C Disposition:Home, Routine, Self-Care ADT D/C Disposition:Home, Routine, Self-Care Projected Discharge Date:01/31/2018 Transportation at D/C:Cab Voucher Discharge Delay Reason: Follow-Up Date:01/31/2018 Discharge Slot: Final Diagnosis:ETOH ketoacidosis Placement Information Patient Contact Information Contact Name:NORBERTO Relationship:Mother Address:[address] City:[place] Alternate Phone: [facility]/Zip Code:[place] [address] Email: Financial Information Financial Class:[facility] Primary Plan Desc:[facility] Primary Plan Number:[id number] Secondary Plan Desc: Secondary Plan Number: Assessment Information LACE LACE Length of stay for Answers: 4-6 days current admission Acuity / Level of Answers: Yes Care: Did the patient have an inpatient admission? Comorbidities - select Answers: Other Notes: AFib, ETOH addiction all that apply # of Emergency department Answers: 1-2 visits in the last 6 months Social determinants Answers: History of substance abuse (ETOH, street drugs, prescription drugs, etc.) Mental health diagnosis (anxiety, depression, pers onality disorders, etc.) Lack of community resources and/or lack of social support (no pcp, lives alone, transportation, logan d) Score: 19 Date Signed: 02/01/2018 03:48 PM Electronically Signed By:Kayley Long [facility] Initial CM Assessment Living Arrangements What is your living Answers: With One Parent arrangement? Who do you live with? Type Of Residence What kind of residence do Answers: House you live in? Discharge Plan Comments Coordination Status Comments Notes: Patient is a 28yo single male with a hx of alcoholism who has been admitted for acute alcohol pancreatitis, alcoholism, lactic acid elevation, hematemesis, and supraventricular tachycardia. Patient was recently hospitalized for another episode of alcoholic pancreatitis in November. Patient quit alcohol but relapsed 1 week ago. Patient quit smoking 3 weeks ago. Patient still uses marijuana occasionally and lives with his mom. 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 Patient was given ETOH resources. He will most likely d/c independently. CM will follow. Date Signed: 01/27/2018 04:19 PM Electronically Signed By:Tamika Ramirez LCSW [facility] CM Progress Note CM Note CM Note Notes: Spoke with patient today to see if he would be interested in support and care with his alcohol problem when he leaves the hospital. Patient states he did the intensive outpatient program with [facility] and was inpatient with the [facility]. He feels they did not help and states his plan is to return to work and stay "focused" and busy. Mich states this has been the only plan that has worked in the past. Patient does not want to sign a release for his mother and does not want the hospital talking to her. He reports his mother is an alcoholic too and feels she is to blame for everything going on with him. He does live at home with his mother and grandmother and states he takes care of them. During the conversation, the patient suddenly became concerned that the picture on the wall was of his brother. (It is a picture of a dog) He also was hallucinating and thought he was back at home. Patient was not clear of mind though he appeared to be initially. Patient adamently states he does not want help with follow up care but this may change when he is completely through withdrawals. He did say he wants to get healthy and stop drinking but kept returning to "I can do it myself". CM will follow. Date Signed: 01/28/2018 04:41 PM Electronically Signed By:Tamika Ramirez LCSW [facility] CM Progress Note CM Note CM Note Notes: Patient met with Marisela Church and will talk with PCP about campral for cessation. D/C plan is independent at this time. CM available if d/c needs arise. Date Signed: 01/31/2018 04:07 PM Electronically Signed By:Tamika Ramirez LCSW Case Management Discharge Plan Note Case Management Discharge Discharge Order Complete? Answers: Yes Patient to Obtain Answers: Independently Medications Transportation Arranged Answers: Taxi - Voucher Transport will Pick (Date 02/01/2018 04:30 PM & Time) Family Notified Answers: Yes Notes: by pt Discharge Comments Notes: Spoke with pt extensively in the room about his home situation and recovery process. Pt reports intention for sobriety but relapse in the face of stress in caregiving for mother who is in a wheelchair and grandmother who is also frail, with whom he lives. Pt encouraged to seek community support through [facility] and [employer] for mother and grandmother in order to ease the burden on him and to set healthy boundaries with family around accepting community support, as they are reluctant. Pt confirms knowledge of AA meetings near his house which he intends to attend, and pt was given brochure for [facility] and phone number for [employer] for help in enrolling his mother in medicaid as she is currently unemployed. Pt also encouraged to contact health insurance and PCP for referrals to counselor who can support him in his recovery. CM stressed importance of accepting help and expressing feelings verbally. Pt acknowledged that these things helped when he was inpatient with [facility]. Pt declined referral to [employer] at this time. No further CM needs noted at this time. Pt provided with taxi voucher home. Date Signed: 02/01/2018 03:46 PM Electronically Signed By:Kayley Long Intervention Information
--- NOTE | 2018-02-01 21:19 | GDS ---
FINAL DIAGNOSES: 1. Severe alcohol withdrawal. 2. Acute alcoholic pancreatitis. 3. Alcoholic hepatitis. 4. Clostridium difficile colitis. 5. Lactic acidosis. 6. Electrolyte abnormalities with hypokalemia, hypomagnesemia, hypophosphatemia. 7. Hematemesis. 8. Supraventricular tachycardia status post ablation in the past. HOSPITAL COURSE: This is a 27-year-old man who was admitted with abdominal pain. He was found to myrick ve pancreatitis. He also has a history of heavy alcohol intake. He had severe alcohol withdrawal wh ich required Precedex in the ICU. He is significantly improved. He is tolerating full meals. He is no longer in withdrawal. He also had some diarrhea as well as vomiting and had a positive C diff. He will complete a total of a 10-day course of vancomycin p.o. for this. His electrolytes have been abnormal, but they have been repleted. I have encouraged him to eat full meals. His magnesium is sl ightly low on the day of discharge at 1.5. His potassium is 3.7. He plans to quit drinking entirely . He will follow up with his primary care physician for help with this. He is otherwise discharged in stable condition. BILLING: I spent more than 30 minutes on the day of discharge coordinating care. /[id number]/MODL
== END 2018-02-01 16:18 | disposition home or self-care (01) | DRG 439 ==
LOC: OBSVTOIN 21:09 → F3E 22:25 → F2N 01-28 18:59 → F3E 01-31 18:20
PROVIDERS: ADMIT Internal Medicine; ATTEND Student in an Organized Health Care Education/Training Program
PROC: HZ2ZZZZ Detoxification Services for Substance Abuse Treatment (ICD-10-PCS; principal; 2018-01-26)
DX: K85.20 Alcohol induced acute pancreatitis without necrosis or infection (principal); K70.10 Alcoholic hepatitis without ascites; F10.231 Alcohol dependence with withdrawal delirium; F10.220 Alcohol dependence with intoxication, uncomplicated; K92.0 Hematemesis; E86.0 Dehydration; E87.2 Acidosis; E87.1 Hypo-osmolality and hyponatremia; E87.6 Hypokalemia; E83.42 Hypomagnesemia; E83.39 Other disorders of phosphorus metabolism; A04.72 Enterocolitis due to Clostridium difficile, not specified as recurrent; R63.6 Underweight; Z68.1 Body mass index [BMI] 19.9 or less, adult; Z87.891 Personal history of nicotine dependence
CPT/HCPCS: 97161-GP; 97166-GO; G0480; J1170; J2060; J2405; J3411; J3475

== ENCOUNTER 2018-02-06 14:52 | Emergency (ER) | payer OTHER ==
[2018-02-06] MEDS ORDERED: THIAMINE HCL 100 MG TAB PO ONE (16:45)
[2018-02-06] MEDS ORDERED: FOLIC ACID 1 MG TAB PO ONE (16:48)
[2018-02-06] MEDS ORDERED: POTASSIUM CL 20 MEQ PKT PO ONE (16:50)
--- NOTE | 2018-02-06 16:52 | EDPHY ---
H & P Time Seen by Provider: 02/06/18 14:58 HPI/ROS: CHIEF COMPLAINT: Bilateral foot pain HISTORY OF PRESENT ILLNESS: Patient states that he has bilateral foot, ankle and lower leg pain. He states that hurts"a lot". He said it began the day after he got out of [facility]. He was admitted for alcoholic ketoacidosis, pancreatitis, C difficile colitis for approximately 1 week and discharged last Saturday. He states he had some difficulty walking while he was in the hospital but that was likely due to mental status changes. He denies having leg pain prior. He has had no injury since his discharge. He states the pain is"burning","pins and needles", and"like walking on glass". Pain began on the bottoms of his feet but now goes up to above his ankles. He denies fevers or chills. He denies any known toxins other than alcohol. He has not had any alcohol since his hospitalization. He states he has been eating well with no dietary restrictions. He still has some diarrheal symptoms but that has improved since being on oral vancomycin. He denies any symptoms in his upper extremities. REVIEW OF SYSTEMS: Constitutional: No fever, no chills. Eyes: No discharge. ENT: No sore throat. Cardiovascular: No chest pain, no palpitations. Respiratory: No cough, no shortness of breath. Gastrointestinal: No abdominal pain, no vomiting. Genitourinary: No dysuria. Musculoskeletal: No back pain. Skin: No rashes. Neurological: No headache. Leg pain and tingling as per HPI. General Appearance: Alert, no distress. Eyes: Pupils equal and round no pallor or injection. ENT, Mouth: Lips dry and cracked, erythematous. Respiratory: There are no retractions, lungs are clear to auscultation. Cardiovascular: Regular rate and rhythm. Gastrointestinal: Abdomen is soft and nontender, no masses, bowel sounds normal. Neurological: Awake and alert, normal strength to lower extremities. Normal sensation to position and light touch lower extremities. No edema or erythema. Skin: Warm and dry, no rashes. Musculoskeletal: Neck is supple nontender. Extremities are symmetrical, full range of motion, no edema. Psychiatric: Patient is oriented X 3, there is no agitation. Medical/surgical history: Alcoholism, anxiety, bipolar disorder. Ablation for SVT. Social history: Lives with mother and grandmother. Smoking Status: Current some day smoker Constitutional: Initial Vital Signs Temperature (C) 36.9 C 02/06/18 15:08 Heart Rate 92 02/06/18 15:08 Respiratory Rate 16 02/06/18 15:08 Blood Pressure 121/76 H 02/06/18 15:08 O2 Sat (%) 99 02/06/18 15:08 O2 Delivery Mode Room Air Allergies/Adverse Reactions: diltiazem Allergy (Mild, Verified 02/06/18 15:16) rash/hives Home Medications: Medication Instructions Recorded Vancomycin [Vancomycin (*)] 125 mg PO Q6 #20 cap 02/01/18 Aleve 02/06/18 Medical Decision Making Differential Diagnosis: Differential diagnosis includes but is not limited to peripheral neuropathy, Guillain-Homestead syndrome, lower extremity edema, cellulitis. After evaluation strongly suspicious for alcohol induced peripheral neuropathy. No signs of infection, motor weakness, peripheral vascular disease or edema. Lower suspicion for vitamin deficiency as patient states has been eating regular diet although thiamine and folate given in the emergency department. Mild hypokalemia treated with oral potassium. Also checking magnesium and will follow up for this with primary care physician next week. May benefit from gabapentin but will defer that to his primary care Dr. Watson. Understands follow-up and return precautions. Stable for discharge. - Data Points Laboratory Results: 02/06/18 02/06/18 16:26 16:18 POC Sodium 142 mEq/L mEq/L (135-145) POC Potassium 3.1 mEq/L L mEq/L (3.3-5.0) POC Chloride 102.0 mEq/L mEq/L (97-110) POC Total CO2 26 mEq/L mEq/L (22-31) POC BUN 5 mg/dL L mg/dL (7-23) POC Creatinine 0.5 mg/dL L mg/dL (0.7-1.3) POC Glucose 83 mg/dL mg/dL (70-100) POC Calcium 9.0 mg/dL mg/dL (8.5-10.4) Magnesium Pending Medications Given: Discontinued Medications Folic Acid (Folic Acid) 1 mg PO EDNOW ONE Stop: 02/06/18 16:49 Last Admin: 02/06/18 17:06 Dose: 1 mg Potassium Chloride (Klor Packets) 20 meq PO EDNOW ONE Stop: 12/27/18 16:51 Last Admin: 02/06/18 17:06 Dose: 20 meq Thiamine HCl (Vitamin B-1) 100 mg PO EDNOW ONE Stop: 02/06/18 16:46 Last Admin: 02/06/18 17:05 Dose: 100 mg Point of Care Test Results: Chemistry 02/06/18 16:26 POC Sodium 142 mEq/L mEq/L (135-145) POC Potassium 3.1 mEq/L L mEq/L (3.3-5.0) POC Chloride 102.0 mEq/L mEq/L (97-110) POC Total CO2 26 mEq/L mEq/L (22-31) POC BUN 5 mg/dL L mg/dL (7-23) POC Creatinine 0.5 mg/dL L mg/dL (0.7-1.3) POC Glucose 83 mg/dL mg/dL (70-100) POC Calcium 9.0 mg/dL mg/dL (8.5-10.4) Departure - Departure 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 The most important aspect to help improvement is to stay away from alcohol. There are some medications that may help which you should talk to your doctor about tomorrow. You can try ibuprofen or Tylenol although unlikely they will help the pain much. Referrals: Joo Watson, DO [Primary Care Provider] - As per Instructions
[2018-02-06 17:58] VITALS: BP 140/78
== END 2018-02-06 17:00 | disposition home or self-care (01) ==
LOC: CED 14:52
DX: G62.9 Polyneuropathy, unspecified (principal); F10.20 Alcohol dependence, uncomplicated; F31.9 Bipolar disorder, unspecified; F41.9 Anxiety disorder, unspecified; F17.200 Nicotine dependence, unspecified, uncomplicated; Z86.19 Personal history of other infectious and parasitic diseases
CPT/HCPCS: 80048-PO

== ENCOUNTER → 2018-05-06 | Outpatient (CLI) | payer OTHER | LOC: CIMAGING 15:49 | PROVIDERS: ATTEND Family Medicine | DX: M25.561 Pain in right knee (principal); R74.8 Abnormal levels of other serum enzymes; E87.6 Hypokalemia; R53.83 Other fatigue | CPT/HCPCS: 73562-PO ==